=== PATIENT | male | born 1960 | race Caucasian/White ===

== ENCOUNTER 2023-03-20 08:04 | Outpatient (OUT) | payer BC, SELFPAY ==
[2023-03-20 08:40] LABS: Estimated GFR (African America >60 (>=60); Estimated GFR (Non-African Ame >60 (>=60)
--- NOTE | 2023-03-20 08:52 | CT_ITS ---
[address] [address] Patient Name: NORI SHARPE MRN: [facility]:[id number] date: 1960 Sex: M Assigned Patient Location: LAB Current Patient Location: LAB Accession/Order Number: [id number] Exam Date: 03/20/2023 09:00 Report Date: 03/20/2023 11:47 At the request of: JLUIS FLORENTINO Procedure: CT angio chest EXAM: CT angio chest HISTORY: Thoracic Aneurysm I71.20 COMPARISON: None. TECHNIQUE: CT chest with intravenous contrast was performed with timing for the evaluation for pulmonary arteries. Multiplanar reformats were performed. MIP (maximum intensity projection) images or 3D post processing was performed. Dose reduction techniques were achieved by using automated exposure control and/or adjustment of mA and/or kV according to patient size and/or use of iterative reconstruction technique. FINDINGS: Lungs: No consolidation, pneumothorax, or effusion. Stable 0.5 cm left lower lobe pulmonary nodule. Airways: Normal. Mediastinum: No adenopathy. Aorta: Stable post stenotic ascending aortic aneurysm measuring 3.4 cm, measured on coronal view. Cardiac: Normal size. No pericardial effusion. Status post aortic valve replacement. Pulmonary vasculature: There is a linear eccentric hypodensity along the left lower lobe segmental/subsegmental branches which is similar to the multiple prior studies since 08/11/2021 and likely artifact rather than true embolism (series 4, image 63). Normal morphology. Bones: No acute bony abnormality. Axilla: No adenopathy. Thyroid gland: No abnormality demonstrated on provided imaging. Soft tissues: Unremarkable. Upper abdomen: Unremarkable. Additional findings: None. CT/CT angio chest IMPRESSION: linear eccentric hypodensity along the left lower lobe segmental/subsegmental branches which is similar to the multiple prior studies since 08/11/2021 and likely artifact rather than true embolism. Stable post stenotic ascending aortic aneurysm measuring 3.4 cm, measured on coronal view. Stable 0.5 cm left lower lobe pulmonary nodule. Electronically authenticated by: MONICA SAMANIEGO Date: 03/20/2023 11:47
== END 2023-03-20 08:05 | disposition home or self-care (01) ==
LOC: LAB 08:04
PROVIDERS: PCP Internal Medicine; Visit Provider Internal Medicine Interventional Cardiology
DX: I71.20 Thoracic aortic aneurysm, without rupture, unspecified (principal)
CPT/HCPCS: 36415; 71275; 82565; Q9967

== ENCOUNTER 2023-09-20 08:47 | Outpatient (OUT) | payer BC, SELFPAY ==
--- NOTE | 2023-09-20 10:04 | CA_ITS ---
Patient Name: NORI SHARPE MR#: [id number] : 1960 Exam Date: 09/20/2023 Ordering Doctor: DR JLUIS FLORENTINO M.D. ECHOCARDIOGRAM REPORT PROCEDURE: CA ECHO DOPPLER COMPLETE INDICATIONS: Nonrheumatic valve stenosis COMPARISON: None. DESCRIPTION: COMPLETE ECHOCARDIOGRAM Real-time transthoracic echocardiography with 2D, M-mode, spectral and color flow Doppler performed. QUALITY: Technical quality was good. LEFT VENTRICLE: Normal chamber size. Borderline left ventricular hypertrophy. Global left ventricular systolic function is normal. LV EF: Calculated left ventricular ejection fraction is 63%. DIASTOLIC: Normal diastolic function. ATRIAL SEPTUM: LEFT ATRIUM: Mild dilatation. RIGHT ATRIUM: Mild dilatation. RIGHT VENTRICLE: Normal chamber size. Normal right ventricular systolic function. TRICUSPID VALVE: Normal mobility and thickness. No stenosis with trivial regurgitation. No evidence of pulmonary hypertension. RVSP 33 mmHg MITRAL VALVE: Normal mobility and thickness. No evidence of mitral valve stenosis. There is no mitral annular calcification. Mild mitral regurgitation. AORTIC VALVE: Bio-Prosthetic valve appears well seated in the aortic position with normal doppler flow. DVI 0.4, Mean gradient 12 mmHg. No aortic regurgitation. AORTIC ROOT: Normal diameter (3.8 cm) and appearance. Ascending aorta is moderately dilated measuring 4.4 cm which is unchanged from previous study of 08/16/22. The aortic arch measures 3.9 cm. PULMONIC VALVE: Normal thickness and mobility. No stenosis. Trivial regurgitation. PERICARDIUM: No evidence of pericardial effusion. IVC: Collapses with inspirations. Normal size. PLEURA: CONCLUSION: 1. Borderline left ventricular hypertrophy with systolic function. Estimated LVEF is 60 to 65%. 2. Normal right ventricular size and systolic function. 3. Bioprosthetic valve in the aortic position with normal Doppler flows and no regurgitation. 4. Normal right-sided pressures. 5. Normal diastolic function. 6. Moderately dilated ascending aorta measuring 4.4 cm. Adult Echocardiography Procedure Report Left Ventricle LVEDD (3.7 - 5.6 cm): 4.79 cm LVESD (2.2 - 4.0 cm): 3.48 cm LVIVS thickness (0.6 - 1.2 cm): 1.11 cm LVPW thickness (0.5 - 1.0 cm): 0.98 cm e': 0.14 m/s E - e': 6.28 LVOT Max Gradient: 3.59 mm[Hg] LVOT Area (cm2): 0.95 m/s Peak Velocity (LVOT): 0.95 m/s Mean Velocity (LVOT): 0.64 m/s LVOT Diameter 2.05 cm Left Ventricular Ejection Fraction: 63 % Left Atrium LA Volume Index (2D A2C): 30.74 ml/m2 Left Atrium Systolic Dimension: 4.41 cm Mitral Valve MV E to A Ratio: 0.95 Mitral Valve A-Wave Peak Velocity: 0.91 m/s Mitral Valve E-Wave Peak Velocity: 0.86 m/s Right Ventricle RV Internal Diastolic Dimension: 4.06 cm Aorta AO Root Diam: 3.83 cm Ascending Ao Diam: 4.40 cm Aortic Valve AoV Area (Peak Magno): 1.33 cm2, 1.33 cm2, 1.45 cm2, 1.45 cm2 AoV Area (VTI): 1.41 cm2, 1.41 cm2 Peak Velocity(Antegrade Flow): 2.36 m/s, 2.16 m/s Peak Gradient(Antegrade Flow): 22.33 mm[Hg], 18.69 mm[Hg] Mean Velocity(Antegrade Flow): 1.61 m/s Mean Gradient(Antegrade Flow): 11.86 mm[Hg] Velocity Time Integral: 55.31 cm Tricuspid Valve Peak Velocity (Regurgitant Flow): 2.72 m/s, 2.71 m/s, 2.73 m/s Pulmonic Valve Mean Gradient: 2.24 mm[Hg] Mean Velocity: 0.68 m/s Peak Velocity: 1.12 m/s, 1.18 m/s Peak Gradient: 5.55 mm[Hg], 5.03 mm[Hg] Right Atrium Right Atrium Systolic Pressure: 88.33 ml, 88.33 ml Dictated by: Benjy Gomez M.D. on 09/22/2023 at 15:20 Approved by: Benjy Gomez M.D. on 09/22/2023 at 15:40
== END 2023-09-20 08:48 | disposition home or self-care (01) ==
LOC: CARD 08:48
PROVIDERS: PCP Internal Medicine; Visit Provider Internal Medicine Interventional Cardiology
DX: I35.0 Nonrheumatic aortic (valve) stenosis (principal)
CPT/HCPCS: 93306

== ENCOUNTER 2023-10-02 08:59 | Outpatient (OUT) | payer BC, SELFPAY ==
--- OUTSIDE RECORDS SUMMARY | 2023-10-02 09:05 | XMS_ITS | CCD ---
Author Name Unknown Address [address] [place] [id number] Organization [facility] Care Team Providers Care Circulation Clerk Name Role Phone MEME RAYGOZA Admitting Unavailable MEME RAYGOZA Attending Unavailable VINNIE, JOVANI Primary Care Unavailable SELF, REFERRED Referring Unavailable Jovani [place] Unavailable VINNIE, JOVANI Primary Care Physician VINNIE, DR SHIRLEY Admitting Unavailable BALL, DR SHIRLEY Attending Unavailable BALL, DR SHIRLEY Primary Care Unavailable BALL, DR SHIRLEY Consulting Unavailable BALL, DR SHIRLEY Admitting Unavailable BALL, DR SHIRLEY Attending Unavailable BALL, DR SHIRLEY Primary Care Unavailable BALL, DR SHIRLEY Consulting Unavailable WEST, DR JOSE Blum Consulting Unavailable ELTAHAWY, DR BAZZI Admitting Unavailable ELTAHAWY, DR BAZZI Attending Unavailable BALL, DR SHIRLEY Primary Care Unavailable ELTAHAWY, DR BAZZI Consulting Unavailable ZIEBER, DR AMNA Srivastava Consulting Unavailable NILL, JAYLA Admitting Unavailable NILL, JAYLA Attending Unavailable BALL, DR SHIRLEY Primary Care Unavailable NILL, Jayla Srivastava Attending Unavailable BALL, JOVANI Referring Unavailable NILL, Jayla Srivastava Attending Unavailable NILL, Jayla Srivastava Attending Unavailable NILL, Jayla Srivastava Attending Unavailable ELTAHAWY, KENNA Attending Unavailable Allergies Allergy Classification Reported Allergen(s) Allergy Type Date of Onset Reaction(s) Facility (1 source) No Known Medication Allergies; Translations: [No Known Medication Allergies] Propensity to adverse reactions (disorder) [facility] Repository (2 sources) patient allergy list reviewed by nurse or physicia Propensity to adverse reactions 6 Comment:Done [facility] Other Medications Current Medications Medication Drug Class(es) Dates Sig (Normalized) Sig (Original) aspirin 81 mg delayed release oral tablet (11 sources) Platelet Aggregation Inhibitor, Nonsteroidal Anti-inflammatory Drug Start: 04-25-2023 take 1 tablet by mouth once daily aspirin 81 mg Oral EC Tab 81 mg = 1 tab(s), Oral, Daily, Oral, Refills(s) 0 Start Date: 11/28/22 Status: Ordered take 1 tablet by mouth once miranda y Aspirin 81 81 MG 1 tablet Orally Once a day Active atorvastatin 80 mg oral tablet (11 sources) HMG-CoA Reductase Inhibitor Start: 11-28-2022 take 1 tablet by mouth once daily atorvastatin 80 mg Tab 80 mg = 1 tab(s), Oral, Daily, Oral, Refills(s) 0 Start Date: 11/28/22 Status: Ordered azithromycin 250 mg oral tablet (5 sources) Macrolide Antimicrobial Start: 12-04-2022 Azithromycin 250 MG as directed Orally daily for 5 days December, Active benazepril hydrochloride 40 mg oral tablet (11 sources) Angiotensin Converting Enzyme Inhibitor Start: 11-28-2022 take 1 tablet by mouth once daily benazepril 40 mg oral tablet 40 mg = 1 tab(s), Oral, Daily, Oral, Refills(s) 0 Start Date: 11/28/22 Status: Ordered clopidogrel 75 mg oral tablet (11 sources) P2Y12 Platelet Inhibitor Start: 11-28-2022 take 1 tablet by mouth once daily clopidogrel 75 mg Tab 75 mg = 1 tab(s), Oral, Daily, Oral, Refills(s) 0 Start Date: 11/28/22 Status: Ordered metoprolol tartrate 25 mg oral tablet (11 sources) beta-Adrenergic Bg Start: 11-28-2022 take 1 tablet by mouth twice daily Metoprolol tartrate 25 mg Tab 25 mg = 1 tab(s), Oral, BID, Oral, Refills(s) 0 Start Date: 11/28/22 Status: Ordered Completed/Discontinued Medications Medication Drug Class(es) Dates Sig (Normalized) Sig (Original) amoxicillin 875 mg / clavulanate 125 mg oral tablet (5 sources) Penicillin-class Antibacterial Start: 12-13-2022 take 1 tablet by mouth every twelve hours Amoxicillin-Pot Clavulanate 875-125 MG 1 tablet Orally every 12 hrs for 14 days December, Not-Taking Problems Active Problems Problem Classification Problem Date Documented Da te Episodic/Chronic Abdominal pain (11 sources) Right lower quadrant pain; Translations: [Right lower quadrant pain] Episodic Aortic; peripheral; and visceral artery aneurysms (5 sources) Aneurysm of ascending aorta; Translations: [Thoracic aortic aneurysm without rupture] Onset: 08-18-2022 11-28-2022 Chronic Coronary atherosclerosis and other heart disease (20 sources) Coronary arteriosclerosis; Translations: [Atherosclerotic heart disease of [place] coronary artery without angina pectoris] Onset: 03-06-2016 Chronic Disorders of lipid metabolism (18 sources) Hypercholesterolemia ; Translations: [Pure hypercholesterolemia , unspecified] Onset: 08-06-2014 Chronic Essential hypertension (16 sources) Essential hypertension; Translations: [Essential (primary) hypertension] Chronic Genitourinary symptoms and ill-defined conditions (11 sources) Delay when starting to pass urine; Translations: [Hesitancy of micturition] Episodic Heart valve disorders (20 sources) History of aortic valve replacement; Translations: [Presence of prosthetic heart valve] Onset: 08-18-2022 Chronic Hypertension with complications and secondary hypertension (2 sources) Hypertensive heart disease without heart failure; Translations: [Hypertensive heart disease without heart failure] Onset: 09-18-2022 Chronic Other congenital anomalies (2 sources) Congenital spondylolysis of lumbosacral region; Translations: [Congenital spondylolysis, lumbosacral region] Onset: 03-06-2016 Chronic Other lower respiratory disease (11 sources) Multiple nodules of lung; Translations: [Other nonspecific abnormal finding of lung field] 11-28-2022 Episodic Other lower respiratory disease (7 sources) Other nonspecific abnormal finding of lung field; Translations: [OTH NONSPECIFIC ABN FIND LNG FIELD] Onset: 07-14-2022 Episodic Other lower respiratory disease (2 sources) Lung field abnormal; Translations: [Other nonspecific abnormal finding of lung field] Episodic Other nervous system disorders (2 sources) Paresthesia; Translations: [Paresthesia of skin] Episodic Other nutritional; endocrine; and metabolic disorders (3 sources) Body mass index 30+ - obesity; Translations: [Body mass index 30.0-30.9, adult] Onset: 06-26-2014 12-05-2022 Chronic Other nutritional; endocrine; and metabolic disorders (2 sources) Simple obesity ; Translations: [Other obesity due to excess calories] Onset: 06-26-2014 Chronic Other screening for suspected conditions (not mental disorders or infectious disease) (4 sources) Encounter for screening for malignant neoplasm of colon; Translations: [Screening for malignant neoplasm of colon done] Onset: 11-19-2022 Episodic Other upper respiratory infections (2 sources) Acute maxillary sinusitis, unspecified Episodic Spondylosis; intervertebral disc disorders; other back problems (13 sources) Lumbar spondylosis; Translations: [Spondylosis without myelopathy or radiculopathy, lumbar region] 11-28-2022 Chronic Substance-related disorders (20 sources) Nicotine dependence; Translations: [Nicotine dependence, cigarettes, uncomplicated] Onset: 03-13-2014 Chronic Unclassified (1 source) Patient encounter status 12-05-2022 Unclassified (1 source) THORAC AORTC ANEURYSM W/O RUPTR UNS; Translations: [THORAC AORTC ANEURYSM W/O RUPTR UNS] Onset: 08-18-2022 Unclassified (1 source) ANEURYSM ASCEND AORTA W/O RUPTURE; Translations: [ANEURYSM ASCEND AORTA W/O RUPTURE] Onset: 07-20-2022 Unclassified (2 sources) Thoracic aortic aneurysm, without rupture, unspecified; Translations: [Thoracic aortic aneurysm, without rupture, unspecified] Unclassified (3 sources) Aneurysm of the ascending aorta, without rupture; Translations: [Aneurysm of the ascending aorta, without rupture] Past or Other Problems Problem Classification Problem Date Documented Da te Episodic/Chronic Other nutritional; endocrine; and metabolic disorders (2 sources) Obesity; Translations: [Obesity, unspecified] Resolved: 02-25-2021 Chronic Residual codes; unclassified (2 sources) Tobacco user; Translations: [Nondependent tobacco use disorder] Onset: 03-13-2014 Episodic Spondylosis; intervertebral disc disorders; other back problems (2 sources) Low back pain; Translations: [Low back pain, unspecified] Onset: 03-06-2016 Episodic Unclassified (7 sources) Aneurysm of ascending aorta without rupture; Translations: [Aneurysm of ascending aorta without rupture] Unclassified (5 sources) Aneurysm of ascending aorta without rupture I71.21 Unclassified (1 source) Suspected COVID-19 virus infection Z20.822 Results Test Name Value Interpretation Reference Range Facility Orders Onlyon 04-12-2023 Orders Only [id number] Nori De La Rosa 1960 M Date Provider Department Center 04/12/2023 [facility] Family History Problem Relation Age of Onset Coronary artery disease Father Other Father Family Status - Relation Status Age at Father Normal [facility] Pathology Noteon 01-04-2023 Pathology Note [id number] .00CD:127 Normal [facility] Outside Colonoscopyon 2022 Outside Colonoscopy [id number] .00CD:127 [facility] Pre-Certification Formon Pre-Certification Form [id number]# 1.00CD:127 [facility] Consent for Procedure/Surger yon 12-07-2022 Consent for Procedure/Surgery [id number] .00CD:127 [facility] Facesheeton 12-07-2022 Facesheet [id number] .00CD:127 [facility] Physician Referralon 023 Physician Referral [id number] .00CD:127 [facility] Physician Referral [id number] .00CD:127 [facility] Ambulatory Visit Summaryon 0 12-05-2022 Ambulatory Visit Summary NORI DE LA ROSA :1960 Visit Date:12/05/2022 Ambulatory Visit Instructions Your Diagnosis Screening for malignant neoplasm of colon Your Care Team Attending Physician - IVON CONTRERAS, Jayla Srivastava Primary Care Physician - JOVANI [place] DO This Is Your Medications List Contact prescribing physician if questions or concerns aspirin (aspirin 81 mg Oral EC Tab) atorvastatin (atorvastatin 80 mg Tab) benazepril (benazepril 40 mg oral tablet) clopidogrel (clopidogrel 75 mg Tab) metoprolol (Metoprolol tartrate 25 mg Tab) Procedures Performed CABG - Coronary artery bypass graft (2014), AVR - Aortic valve replacement (2013), Cardiac catheterization, left heart. Discharge Vitals Heart Rate (Peripheral) 76 Respiratory Rate 16 Blood Pressure 144/84 Height 172.72 cm Height 68 in Weight 97.1 kg Weight 213.62 lb BMI 32.55 Medications What How Much When Instructions Unchanged aspirin (aspirin 81 mg Oral EC Tab) 1 Tablets By Mouth Every day Oral Contact prescribing physician if questions or concerns Unchanged atorvastatin (atorvastatin 80 mg Tab) 1 Tablets By Mouth Every day Oral Contact prescribing physician if questions or concerns Unchanged benazepril (benazepril 40 mg oral tablet) 1 Tablets By Mouth Every day Oral Contact prescribing physician if questions or concerns Unchanged clopidogrel (clopidogrel 75 mg Tab) 1 Tablets By Mouth Every day Oral Contact prescribing physician if questions or concerns Unchanged metoprolol (Metoprolol tartrate 25 mg Tab) 1 Tablets By Mouth 2 times a day Oral Contact prescribing physician if questions or concerns Allergies No Known Allergies No Known Medication Allergies Problems Ongoing - Any problem that you are currently receiving treatment for. Aneurysm of ascending aorta Aortic valve stenosis ASHD (arteriosclerotic heart disease) BMI 32.0-32.9,adult Coronary arteriosclerosis Essential hypertension History of aortic valve replacement. Hypercholesterolemia Lumbar spondylosis Multiple nodules of lung Nicotine dependence Screening for malignant neoplasm of colon Thoracic aortic aneurysm without rupture Normal [facility] Physician Referralon 023 Physician Referral [id number] .00CD:127 Normal [facility] CBC AUTO DIFFon 11-13-2022 BASO # 0.0 103/ul Normal 0.0-0.1 [facility] Comment on above: Performed By: #### C BC #### [facility] [address] [address] [address] Charity Connors Basophils/100 WBC (Bld) 0.4 % Normal 0.2-2.0 [facility] Comment on above: Performed By: #### C BC #### [facility] [address] [address] [address] Charity Connors EO # 0.1 103/ul Normal 0.0-0.7 [facility] Comment on above: Performed By: #### C BC #### [facility] [address] [address] [address] Charity Connors Eosinophils/100 WBC (Bld) 1.2 % Normal 0.9-7.0 [facility] Comment on above: Performed By: #### C BC #### [facility] [address] [place] [address] Dr. Charity Connors Erythrocyte distribution width (RBC) [Ratio] 12.8 % Normal 11.0-15.0 [facility] Comment on above: Performed By: #### C BC #### [facility] [address] [place] [address] Dr. Charity Connors Hematocrit (Bld) [Volume fraction] 42.2 % Normal 42.0-54.0 [facility] Comment on above: Performed By: #### C BC #### [facility] [address] [place] [address] Dr. Charity Connors Hemoglobin (Bld) [Mass/Vol] 14.4 g/dL Normal 14.0-18.0 [facility] Comment on above: Performed By: #### C BC #### [facility] [address] [place] [address] Dr. Charity Connors IG # 0.02 10e3/ul Normal 0.00-0.03 [facility] Comment on above: Performed By: #### C BC #### [facility] [address] [place] [address] Dr. Charity Connors IG % 0.3 % Normal 0.0-0.5 [facility] Comment on above: Performed By: #### C BC #### [facility] [address] [place] [address] Dr. Charity Connors LYMPH # 2.2 103/ul Normal 1.2-3.8 [facility] Comment on above: Performed By: #### C BC #### [facility] [address] [place] [address] Dr. Charity Connors Lymphocytes/100 WBC (Bld) 30.3 % Normal 20.5-60.0 [facility] Comment on above: Performed By: #### C BC #### [facility] [address] [place] [address] Dr. Charity Connors MANUAL DIFF REQ NO Normal [facility] Comment on above: Performed By: #### C BC #### [facility] [address] [place] [address] Dr. Charity Connors MCH (RBC) [Entitic mass] 31.0 pg Normal 25.9-34.0 [facility] Comment on above: Performed By: #### C BC #### [facility] [address] [place] [address] Dr. Charity Connors MCHC (RBC) [Mass/Vol] 34.1 g/dL Normal 29.9-35.2 [facility] Comment on above: Performed By: #### C BC #### [facility] [address] [place] [address] Dr. Charity Connors MCV (RBC) [Entitic vol] 90.9 fL Normal 80.0-94.0 [facility] Comment on above: Performed By: #### C BC #### [facility] [address] [place] [address] Dr. Charity Connors MONO # 0.7 103/ul Normal 0.3-0.8 [facility] Comment on above: Performed By: #### C BC #### [facility] [address] [place] [address] Dr. Charity Connors Monocytes/100 WBC (Bld) 9.1 % Normal 1.7-12.0 [facility] Comment on above: Performed By: #### C BC #### [facility] [address] [place] [address] Dr. Charity Connors NEUT # 4.3 103/ul Normal 1.4-6.5 [facility] Comment on above: Performed By: #### C BC #### [facility] [address] [place] [address] Dr. Charity Connors Neutrophils/100 WBC (Bld) 58.7 % Normal 43.0-75.0 [facility] Comment on above: Performed By: #### C BC #### [facility] [address] [place] [address] Dr. Charity Connors Platelet mean volume (Bld) [Entitic vol] 9.3 fL Critically low 9.5-13.5 [facility] Comment on above: Performed By: #### C BC #### [facility] [address] [place], [place] [address] Dr. Charity Connors PLT 450 103/ul Normal 150-450 [facility] Comment on above: Performed By: #### C BC #### [facility] [address] [place], [place] [address] Dr. Charity Connors RBC 4.64 106/ul Critically low 4.70-6.10 [facility] Comment on above: Performed By: #### C BC #### [facility] [address] [place], [place] [address] Dr. Charity Connors WBC 7.3 103/ul Normal 4.0-11.0 [facility] Comment on above: Performed By: #### C BC #### [facility] [address] [place], [place] [address] Dr. Charity Connors Complete Blood Count and Dif cyndie 11-13-2022 Anisocytosis Ql (Bld) [facility] Other Basophilic stippling LM Ql (Bld) [facility] Other RBC morphology finding Nom (Bld) [facility] Other Complete Blood Count and Diff [facility] Other Comprehensive Metabolic Pane cary 11-13-2022 Albumin [Mass/Vol] 3.448924 g/dL 3.4-5.0 g/dL N [employer] Other Calcium [Mass/Vol] 9.1259450 mg/dL 8.5-10.1 mg/ dL [facility] Other CO2 [Moles/Vol] 29.67016670 mmol/L 21.0-3 2.0 mmol/L [facility] Other Creatinine [Mass/Vol] 0.38444295 mg/dL 0.70-1.30 mg/dL [facility] Other Potassium [Moles/Vol] 4.49262764 mmol/L 3.5-5.1 mmol/L [facility] Other Protein [Mass/Vol] 8.360010 g/dL Critically high 6.4-8.2 g /dL [facility] Other Urea nitrogen [Mass/Vol] 12.4391523 mg/dL 7.0-18.0 mg/dL [facility] Other Comprehensive Metabolic Panel see note [facility] Other Comprehensive Metabolic Panel 138 mmol/L 136-145 mmol/L [facility] Other Comprehensive Metabolic Panel 110 mg/dL Critically high 74-106 mg/dL [facility] Other Comprehensive Metabolic Panel >60 mL/min/1.73m2 >=60 mL/min/1.73m2 [facility] Other Comprehensive Metabolic Panel 0.4 mg/dL 0.2-1.0 mg/dL [facility] Other Comprehensive Metabolic Panel 4.9 g/dL [facility] Other Albumin/Globulin [Mass ratio] 0.7 {ratio} Normal [facility] Other Comment on above: Performed By: #### C MP, LIPID #### [facility] [address] [place] [address] Dr. Charity Connors ALP [Catalytic activity/Vol] 95 U/L Normal 46-116 [facility] Other Comment on above: Performed By: #### C MP, LIPID #### [facility] [address] [place] [address] Dr. Charity Connors ALT [Catalytic activity/Vol] 62 U/L Normal 16-63 [facility] Other Comment on above: Performed By: #### C MP, LIPID #### [facility] [address] [place] [address] Dr. Charity Connors Anion gap [Moles/Vol] 11.6 mmol/L Normal [facility] Other Comment on above: Performed By: #### C MP, LIPID #### [facility] [address] [address] [address] Charity Connors AST [Catalytic activity/Vol] 22 U/L Normal 15-37 [facility] Other Comment on above: Performed By: #### C MP, LIPID #### [facility] [address] [place] [address] Dr. Charity Connors Chloride [Moles/Vol] 102 mmol/L Normal 98-107 [facility] Other Comment on above: Performed By: #### C MP, LIPID #### [facility] [address] [place] [address] Dr. Charity Connors Urea nitrogen/Creatinin e [Mass ratio] 13.8 mg/mg Normal [facility] Other Comment on above: Performed By: #### C MP, LIPID #### [facility] [address] [place] [address] Dr. Charity Connors LIPID PROFILEon 11-13-2022 CHOL-HDL RATIO NORM SEE BELOW Normal [facility] Comment on above: Result Comment: 3.3 - 4.4 LOW RISK 4.4 - 7.1 AVERAGE RISK 7.1 - 11.0 MODERATE RISK >11.0 HIGH RISK Performed By: #### C MP, LIPID #### [facility] [address] [place] [address] Dr. Charity Connors Cholesterol in LDL [Mass/Vol] 38.0 mg/dL Normal [facility] Comment on above: Performed By: #### C MP, LIPID #### [facility] [address] [place] [address] Dr. Charity Connors HDL NORMAL > or = 60 mg/dl - LO W CARDIOVASCULAR RISK <40 mg/dl - HIGH CARDIOVASCULAR RISK Normal [facility] Comment on above: Performed By: #### C MP, LIPID #### [facility] [address] [place] [address] Dr. Charity Connors LDL CALC NORMAL SEE BELOW Normal [facility] Comment on above: Result Comment: <100 mg/dl OPTIMAL 100 - 129 mg/dl NEAR OR ABOVE OPTIMAL 130 - 159 mg/dl BORDERLINE HIGH 160 - 189 mg/dl HIGH >190 mg/dl VERY HIGH Performed By: #### C MP, LIPID #### [facility] [address] [address] [address] Charity Connors VLDL CALC 40.0 mg/dL Normal [facility] Comment on above: Performed By: #### C MP, LIPID #### [facility] [address] [address] [address] Charity Connors Lipid Panelon 11-13-2022 Lipid Panel > or = 60 mg/dl - LO W CARDIOVASCULAR RISK <40 mg/dl - HIGH CARDIOVASCULAR RISK [facility] Other Lipid Panel SEE BELOW [facility] Other Lipid Panel 38.0 mg/dL [facility] Other Lipid Panel 40.0 mg/dL [facility] Other Cholesterol [Mass/Vol] 107 mg/dL Normal <=200 [facility] Other Comment on above: Performed By: #### C MP, LIPID #### [facility] [address] [address] [address] Charity Connors Cholesterol in HDL [Mass/Vol] 29 mg/dL Critically low 40-60 [facility] Other Comment on above: Performed By: #### C MP, LIPID #### [facility] [address] [address] [address] Charity Connors Cholesterol.total/ Cholesterol in HDL [Mass ratio] 3.7 {ratio} Normal [facility] Other Comment on above: Performed By: #### C MP, LIPID #### [facility] [address] [address] [address] Charity Connors Triglyceride [Mass/Vol] 200 mg/dL Critically high <=150 [facility] Other Comment on above: Performed By: #### C MP, LIPID #### [facility] [address] [address] [address] Charity Connors PROF 14(COMP METB)on 023 Albumin [Mass/Vol] 3.6 g/dL Normal 3.4-5.0 [facility] Comment on above: Performed By: #### C MP, LIPID #### [facility] [address] [place] [address] Dr. Charity Connors Bilirubin [Mass/Vol] 0.4 mg/dL Normal 0.2-1.0 [facility] Comment on above: Performed By: #### C MP, LIPID #### [facility] [address] [place] [address] Dr. Charity Connors Calcium [Mass/Vol] 9.8 mg/dL Normal 8.5-10.[address] [facility] Comment on above: Performed By: #### C MP, LIPID #### [facility] [address] [place] [address] Dr. Charity Connors CO2 [Moles/Vol] 29.2 mmol/L Normal 21.0-32.0 [facility] Comment on above: Performed By: #### C MP, LIPID #### [facility] [address] [place] [address] Dr. Charity Connors Creatinine [Mass/Vol] 0.87 mg/dL Normal 0.70-1.30 [facility] Comment on above: Performed By: #### C MP, LIPID #### [facility] [address] [place] [address] Dr. Charity Connors EGFR-AF LITHUANIAN >60 Normal >=60 [facility] Comment on above: Performed By: #### C MP, LIPID #### [facility] [address] [place] [address] Dr. Charity Connors EGFR-NON AF LITHUANIAN >60 Normal >=60 [facility] Comment on above: Performed By: #### C MP, LIPID #### [facility] [facility] [address] [place] [address] Dr. Charity Connors Globulin (S) [Mass/Vol] 4.9 g/dL Normal [facility] Comment on above: Performed By: #### C MP, LIPID #### [facility] [address] [place] [address] Dr. Charity Connors Glucose [Mass/Vol] 110 mg/dL Critically high 74-106 [facility] Comment on above: Performed By: #### C MP, LIPID #### [facility] [address] [address] [address] Charity Connors Potassium [Moles/Vol] 4.8 mmol/L Normal 3.5-5.1 [facility] Comment on above: Performed By: #### C MP, LIPID #### [facility] [address] [address] [address] Charity Connors Protein [Mass/Vol] 8.5 g/dL Critically high 6.4-8.2 [facility] Comment on above: Performed By: #### C MP, LIPID #### [facility] [address] [place] [address] Dr. Charity Connors Sodium [Moles/Vol] 138 mmol/L Normal 136-145 [facility] Comment on above: Performed By: #### C MP, LIPID #### [facility] [address] [place] [address] Dr. Charity Connors Urea nitrogen [Mass/Vol] 12.0 mg/dL Normal 7.0-18.0 [facility] Comment on above: Performed By: #### C MP, LIPID #### [facility] [address] [place] [address] Dr. Charity Connors Office Visiton 09-18-2022 Follow-up visit [id number] Nori De La Rosa 1960 M Date Provider Department Center 09/18/[address] [facility]KENNA HARRISON [facility] Family History Problem Relation Age of Onset Coronary artery disease Father Other Father Family Status - Relation Status Age at Father Level of Service:14309 MO OFFICE/OUTPATIENT ESTABLISHED LOW MDM 20-29 MIN Reason for Visit and Comments: Coronary Artery Disease [187] Valve Disorder [3372] Normal [facility] CREATININEon 08-16-2022 Creatinine [Mass/Vol] 0.96 mg/dL Normal 0.70-1.30 [facility] Comment on above: Performed By: #### C JC #### [facility] [address] [address] [address] Charity Connors EGFR-AF LITHUANIAN >60 Normal >=60 [facility] Comment on above: Performed By: #### C JC #### [facility] [address] [address] [address] Charity Connors EGFR-NON AF LITHUANIAN >60 Normal >=60 [facility] Comment on above: Performed By: #### C JC #### [facility] [address] [address] [address] Charity Connors CTA CHEST WO W CONon 023 CTA CHEST WO W CON EXAMINATION: CTA CHEST WO W CON HISTORY: Thoracic aortic aneurysm without rupture COMPARISON: CT chest 07/14/2022, 08/11/2021, 02/12/2021 TECHNIQUE: Multi-planar CT images were created with IV contrast. Axial, Coronal, and Sagittal images. Dose reduction techniques were achieved by using automated exposure control and/or adjustment of mA and/or kV according to patient size and/or use of iterative reconstruction technique. 3-D reconstruction was performed on a separate workstation. FINDINGS: VASCULATURE: No pulmonary embolism. LUNGS: A few small nodules scattered within the lungs, unchanged; largest is 5 mm within lateral left lower lobe. PLEURA: No mass, effusion, or pneumothorax. TOÑO: No mass or adenopathy. MEDIASTINUM: No mass or adenopathy. CARDIAC: No enlargement, pericardial effusion, or pericardial thickening. AORTA: Prior aortic valve replacement. Dilation of the ascending aorta, 4.8 cm in diameter. CHEST WALL: No mass or axillary adenopathy. BONES: Prior sternotomy. No bone lesion or fracture. LIMITED ABDOMEN: No suspicious findings. Limited images of the upper abdomen. OTHER: Negative. IMPRESSION: 1. Stable aneurysmal dilation of the ascending thoracic aorta, 4.8 cm in diameter. 2. Stable appearance of a few small pulmonary nodules favoring benign etiology. Electronically authenticated by: AMNA BERNSTEIN Date: 2022-08-16 10:09 Normal [facility] ECHOCARDIO M/2D COMPLETEon 0 08-16-2022 ECHOCARDIO M/2D COMPLETE Patient: NORI DE LA ROSA Exam Date: 08/16/2022 : 1960 Gender:M Ordering : DR KENNA HARRISON M.D. Admission #: [id number] Family : DR JOVANI BIRMINGHAM D.ONoemi Order #: [id number] CLICK HERE TO VIEW EXAM ECHOCARDIOGRAM REPORT PROCEDURE: CARDIO PULMONARY ECHOCARDIO M/2D COMP INDICATIONS: Aortic stenosis, H/O AVR; 27 mm Bovine Magna pericardial AND CABG 06/2015 COMPARISON: None. DESCRIPTION: COMPLETE ECHOCARDIOGRAM Real-time transthoracic echocardiography with 2D, M-mode, spectral and color flow Doppler performed. QUALITY: Technical quality was adequate. 71 215# 120/82 HR 57 LEFT VENTRICLE: Normal chamber size. Proximal septal hypertrophy (sigmoid septum). LV EF: Global left ventricular systolic function is normal. Visual estimation of left ventricular ejection fraction is 60%. The interventricular septum is abnormal in motion as commonly seen in open heart patients. DIASTOLIC: Normal diastolic function. ATRIAL SEPTUM: Inadequately seen. LEFT ATRIUM: Normal chamber size. RIGHT ATRIUM: Right atrium is at upper normal limits in size. RIGHT VENTRICLE: Normal chamber size. Normal right ventricular systolic function. TRICUSPID VALVE: Normal mobility and thickness. No stenosis with trivial regurgitation. No evidence of pulmonary hypertension. RVSP 18 mmHg MITRAL VALVE: Normal mobility and thickness. No evidence of mitral valve stenosis. Trivial mitral regurgitation. AORTIC VALVE: Bioprosthetic valve appears well seated in the aortic position with normal Doppler flows. DVI 0.42 and mean gradient 12 mmHg. No aortic regurgitation. AORTIC ROOT: Aorta sinuses are normal in size for BSA. Ascending aorta is moderately enlarged at 4.4 cm, previously 4.28 cm. PULMONIC VALVE: Not well visualized. No stenosis. Trivial regurgitation. PERICARDIUM: No evidence of pericardial effusion. IVC: Collapses with inspirations. IVC is normal in size. CONCLUSION: Global left ventricular systolic function is normal; visually estimated ejection fraction is 55 to 60%. Abnormal septal motion. The right ventricle is normal in size and systolic function. A bioprosthetic aortic valve is seen with normal Doppler flows. The ascending aorta is moderately enlarged and measures 4.4 cm. Adult Echocardiography Procedure Report Left Ventricle LVEDD (3.7 - 5.6 cm): 5.71 cm LVESD (2.2 - 4.0 cm): 3.26 cm LVPW thickness (0.5 - 1.0 cm): 0.92 cm LVOT Max Gradient: 3.88 mm[Hg], 3.88 mm[Hg] Peak Velocity (LVOT): 0.98 m/s, 0.98 m/s Mean Velocity (LVOT): 0.72 m/s Left Ventricular Ejection Fraction: 73.30 %, 73.30 % Left Atrium LA Volume Index (2D A2C): 50.38 ml, 49.87 ml Left Atrium Systolic Dimension: 4.12 cm Mitral Valve MV E to A Ratio: 0.91 Mitral Valve A-Wave Peak Velocity: 0.99 m/s Mitral Valve E-Wave Peak Velocity: 0.91 m/s Right Ventricle RV Internal Diastolic Dimension: 3.96 cm Aorta AO Root Diam: 3.89 cm Ascending Ao Diam: 4.40 cm Aortic Valve Peak Velocity(Antegrade Flow): 2.31 m/s, 2.30 m/s, 2.31 m/s Peak Gradient(Antegrade Flow): 21.35 mm[Hg], 21.35 mm[Hg], 21.09 mm[Hg] Mean Velocity(Antegrade Flow): 1.56 m/s, 1.64 m/s Mean Gradient(Antegrade Flow): 11.12 mm[Hg], 11.83 mm[Hg] Velocity Time Integral: 51.25 cm, 55.01 cm Tricuspid Valve Peak Velocity (Regurgitant Flow): 1.96 m/s Peak Velocity: 0.55 m/s Pulmonic Valve Peak Velocity: 1.16 m/s Peak Gradient: 5.35 mm[Hg] Right Atrium Dictated by: Kenna Harrison M.D. on 08/17/2022 at 13:08 Approved by: Kenna Harrison M.D. on 08/17/2022 at 13:12 Normal [facility] CT CHEST WO CONon 07-14-2022 CT CHEST WO CON EXAMINATION: CT CHES T WO CON HISTORY: Lung field abnormal , pulmonary nodule COMPARISON: 08/11/2021 TECHNIQUE: Multi-planar CT images were created with IV contrast. Axial, Coronal, and Sagittal images. Dose reduction techniques were achieved by using automated exposure control and/or adjustment of mA and/or kV according to patient size and/or use of iterative reconstruction technique. FINDINGS: LUNGS: Scattered subcentimeter solid noncalcified pulmonary nodules the largest in the left lower lobe measures 5 mm, axial image 69. No new significant pulmonary nodule or mass PLEURA: No mass, effusion, or pneumothorax. VASCULATURE: No abnormality. TOÑO: No mass or adenopathy. MEDIASTINUM: No mass or adenopathy. CARDIAC: No enlargement or pericardial effusion. Moderate coronary atherosclerosis. Aortic valve calcifications AORTA: Aneurysm of the ascending thoracic aorta measuring up to 4.8 cm in diameter. Atherosclerosis. CHEST WALL: No mass or axillary adenopathy. BONES: No bone lesion or fracture. LIMITED ABDOMEN: No suspicious findings. Limited images of the upper abdomen. OTHER: Negative. IMPRESSION: Stable scattered punctate pulmonary nodules measuring up to 5 mm, nonspecific 4.8 cm aneurysm ascending thoracic aorta Electronically authenticated by: JOSE PORTER Date: 2022-07-14 12:44 Normal [facility] CTA CHESTon 01-26-2020 [address] [facility] Department of Radiology [address] [place] [id number] Patient Name: NORI DE LA ROSA : 1960 Sex: M Age: Race: White Pt. Location: Patient Status: O Ordered Date: 12/09/2019 11:30:00 AM Completed Date: 01/26/2020 09:08 AM Requesting Provider: MEME RAYGOZA Attending Provider: MEME RAYGOZA Report Copy To: JOVANI BIRMINGHAM Signs & Symptoms: I71.2 Thoracic aortic aneurysm, without rupture I10 History: Shi Patient will do labs near his home per clinic. [id number] no pc required per [employer] ref# [id number] kw 01/11 Comments: Exam: CTA CHEST CTA CHEST 01/26/2020 9:08 AM CLINICAL INDICATIONS: I71.2 Thoracic aortic aneurysm, without rupture I10 TECHNOLOGIST COMMENTS: Thoracic aortic aneurysm surveillance QUESTION FOR THE RADIOLOGIST: PROTOCOL: Axial CT angiography images were obtained with IV contrast. CONTRAST: Contrast: OMNIPAQUE 350 (LOCM), 100 milliliter, Intravenous TECHNIQUE: Multidetector CT angiography axial slices of the chest were obtained with IV contrast. Multiplanar reformats, MIP, and volume rendered 3-D images were generated on a separate workstation and reviewed to further define anatomy and possible pathology. COMPARISON: CT chest November 28, 2017. FINDINGS: The thyroid and thoracic inlet appear unremarkable. The central airways are patent. Aortic valve prosthesis remains in place. The ascending aorta remains prominent measuring 4.5 cm in diameter, unchanged from the prior study. The arch vessels appear unremarkable, no evidence of aortic dissection is identified. No pulmonary emboli are identified. Calcification is present in the LAD, similar to the prior study. No pericardial effusion is seen. No mediastinal adenopathy or fluid collection identified. No pneumothorax or pleural effusion. The previously described 4.8 mm left lower lobe nodule on image 272 is present today, unchanged on image 277. The chest wall appears unremarkable. The study continued into the upper abdomen shows no additional abnormality. The study viewed at bone window shows the presence of sternotomy wires. IMPRESSION: * Aortic valve prosthesis in place with prominent ascending aorta, unchanged from the prior study. * Stable nodule present in the left lower lobe. Electronically signed: Kat Joiner. Transcribed by: [email or web address], User Resident: Electronically Signed by: KAT JOINER @ 01/26/2020 09:29 AM Normal [facility] Vital Signs Date Time Vital Sign Value Performing Clinician Facility 05-15-2023 08:30-0400 Body height 172.72 cm Jovani Birmingham Other [facility] Other 05-15-2023 08:30-0400 Body mass index (BMI) [Ratio] 31.68 kg/m2 Jovani Bimringham Other [facility] Other 05-15-2023 08:30-0400 Body weight 94.53 kg Jovani Ball Other [facility] Other 05-15-2023 08:30-0400 Diastolic blood pressure 80 mm[Hg] Jovani Ball Other [facility] Other 05-15-2023 08:30-0400 Respiratory rate 12 /min Jovani Ball Other [facility] Other 05-15-2023 08:30-0400 Systolic blood pressure 124 mm[Hg] Jovani Ball Other [facility] Other 12-13-2022 16:30-0400 Body height 172.72 cm Jovani Ball Other [facility] Other 12-13-2022 16:30-0400 Body mass index (BMI) [Ratio] 32.26 kg/m2 Jovani Ball Other [facility] Other 12-13-2022 16:30-0400 Body weight 96.25 kg Jovani Ball Other [facility] Other 12-13-2022 16:30-0400 Diastolic blood pressure 79 mm[Hg] Jovani Ball Other [facility] Other 12-13-2022 16:30-0400 Respiratory rate 12 /min Jovani Ball Other [facility] Other 12-13-2022 16:30-0400 Systolic blood pressure 148 mm[Hg] Jovani Ball Other [facility] Other 12-05-2022 13:10-0400 Blood Pressure Location Jayla RAMIREZ [facility] [place] 12-05-2022 13:10-0400 Diastolic blood pressure 84 mm[Hg] Jayla RAMIREZ [facility] [place] 12-05-2022 13:10-0400 Heart rate 76 /min Jayla NILL [facility] [place] 12-05-2022 13:10-0400 Respiratory rate 16 /min Jayla NILL [facility] [place] 12-05-2022 13:10-0400 Systolic blood pressure 144 mm[Hg] Jayla NILL [facility] [place] 11-13-2022 10:30-0400 Body height 172.72 cm Jovani Ball Other [facility] Other 11-13-2022 10:30-0400 Body mass index (BMI) [Ratio] 32.26 kg/m2 Jovani Ball Other [facility] Other 11-13-2022 10:30-0400 Body weight 96.25 kg Jovani Ball Other [facility] Other 11-13-2022 10:30-0400 Diastolic blood pressure 74 mm[Hg] Jovani Ball Other [facility] Other 11-13-2022 10:30-0400 Respiratory rate 12 /min Jovani Ball Other [facility] Other 11-13-2022 10:30-0400 Systolic blood pressure 145 mm[Hg] Jovani Ball Other [facility] Other 10-31-2022 15:45-0400 Body height 172.72 cm Jovani Ball Other [facility] Other 10-31-2022 15:45-0400 Body mass index (BMI) [Ratio] 33.33 kg/m2 Jovani Ball Other [facility] Other 10-31-2022 15:45-0400 Body weight 99.43 kg Jovani Birmingham Other [facility] Other 10-31-2022 15:45-0400 Diastolic blood pressure 70 mm[Hg] Jovani Birmingham Other [facility] Other 10-31-2022 15:45-0400 Respiratory rate 12 /min Jovani Birmingham Other [facility] Other 10-31-2022 15:45-0400 Systolic blood pressure 122 mm[Hg] Jovani Birmingham Other [facility] Other Encounters Encounter Date Encounter Type Care Provider Facility Start: 05-15-2023 End: 05-15-2023 ambulatory Jovani Birmingham Other [facility] Other Start: 05-15-2023 Office outpatient vi sit 25 minutes Jovani Ball [facility] Start: 03-20-2023 End: 03-20-2023 ambulatory Jovani Birmingham Other [facility] Other Start: 03-20-2023 Telephone encounter Jovani Birmingham [facility] Start: 01-04-2023 End: 01-04-2023 ambulatory Jovani Birmingham Other [facility] Other Start: 01-04-2023 Telephone encounter Jovani Birmingham [facility] Start: 12-27-2022 End: 12-28-2022 ambulatory JAYLA NILMiranda Facility:[facility] Start: 12-13-2022 End: 12-13-2022 ambulatory Jovani Ball Other [facility] Other Start: 12-13-2022 Office outpatient vi sit 15 minutes Jovani Ball [facility] Start: 12-05-2022 End: 12-06-2022 ambulatory Jayla RAMIREZ Facility: [place] Start: 12-05-2022 End: 12-05-2022 Patient encounter procedure Jayla RAMIREZ [facility] Start: 12-04-2022 End: 12-04-2022 ambulatory Jovani Birmingham Other [facility] Other Start: 12-04-2022 Office outpatient vi sit 15 minutes Jovani Birmingham [facility] Start: 11-19-2022 Encounter for genera l adult medical examination without abnormal findings DR JOVANI BIRMINGHAM [facility] Start: 11-15-2022 ambulatory Jayla RAMIREZ Facility :[facility] Start: 11-13-2022 End: 11-14-2022 Encounter for general adult medical examination without abnormal findings Jovani Birmingham [facility] Start: 11-13-2022 Periodic preventive med est patient 40-64yrs Jovani Birmingham [facility] Start: 11-13-2022 End: 11-14-[address] JOVANI BIRMINGHAM [facility] Other Start: 10-31-2022 End: 10-31-2022 ambulatory Jovani Birimngham Other [facility] Other Start: 10-31-2022 Office outpatient vi sit 15 minutes Jovani Birmingham [facility] Start: 10-30-2022 End: 10-30-2022 ambulatory Jovani Birmingham Other [facility] Other Start: 10-30-2022 Telephone encounter Jovani Birmingham [facility] Start: 09-18-2022 End: 09-18-2022 ambulatory KENNA HARRISON [facility] Start: 08-18-2022 Encounter for other preprocedural examination DR KENNA HARRISON [facility] Start: 08-16-2022 End: 08-17-[address] KENNA HARRISON Facility:[facility] Start: 08-16-2022 End: 08-17-2022 Encounter for other preprocedural examination DR KENNA HARRISON Facility:[facility] Start: 07-14-2022 End: 07-15-[address] JOVANI BIRMINGHAM Facility:[facility] Start: 02-25-2021 Adult health examination Gael min Ball Other [facility] Other Start: 01-26-2020 End: 01-27-2020 [facility] Procedures Date Procedure Procedure Detail Performing Clinician Start: 11-13-2022 End: 11-13-2022 PSA screening Jovani Birmingham Other Comment on above: Performed By: #### P [facility] #### [facility] [address] [address] [address] Charity Connors Start: 08-06-2014 Coronary artery bypass graft Jayla COOKL Start: 06-26-2014 General examination of patient Jovani Birmingham Other Start: 08-06-2013 Replacement of aortic valve Jayla JOYCEL Catheterization of l eft heart Jayla JOYCEL Depression screening Xavier Birmingham Other Screening for malign ant neoplasm of prostate Jovani Birmingham Other Plan of Treatment Date Care Activity Detail Author Start: 01-16-2023 ambulatory Ambulatory Facility:[facility] [place] Immunizations Immunization Date Immunization Notes Care Provider Fa brenda 05-15-2023 influenza, injectabl e, quadrivalent, preservative free Jovani Birmingham Other [facility] Other 05-18-2022 influenza virus vaccine, unspecified formulation Jayla IVON [facility] [place] 07-08-2021 SARS-CoV-2 (COVID-19 ) mRNA BNT-162b2 vax Jayla COOKMiranda [facility] 10-11-2020 COVID-19 Vaccine Kesha - Documentation Purposes Only Jovani Birmingham Other [facility] 05-28-2015 tetanus and diphther ia toxoids, adsorbed, preservative free, for adult use (5 Lf of tetanus toxoid and 2 Lf of diphtheria toxoid) Jovani Birmingham Other [employer] Other Payers Date Payer Category Payer Private Health Insurance [id number] 1961 [facility] [id number] 1960 Unknown [id number] 2.16.8 [id number] 1960 Unknown [id number] 2.16.84 [id number] 1960 Unknown [id number] 2.16.84 [id number] 1960 Unknown [id number] 2.16.84 [id number] 1960 Unknown [id number] 2.16.84 [id number] 1960 Unknown [id number] 2.16.8 [id number] 1960 Unknown [id number] 2.16.8 [id number] 1960 Unknown [id number] 2.16.8 [id number] 1960 Unknown [id number] 2.16.8 [id number] Social History Date Type Detail Facility Sex Assigned At [facility] Start: 12-05-2022 Tobacco smoking status Heavy t obacco smoker (finding) [facility] [place] Tobacco smoking status Never Gener al Surgery [place] Functional Status Date Assessment Result Facility 12-05-2022 Functional Status N/A [facility] [place] Clinical Notes 09-18-2022 to 05-15-2023 Note Date & Type Note Facility 05-15-2023 Evaluation note Encounter Date Diagnosis Assessment Notes May, Primary hypertension (ICD-10 - I10) This patient is instructed to consume a healthy, low-fat, low-salt diet. They are also encouraged to continue exercise to achieve/maintain a normal BMI. Patient is instructed on home BP measurements: - rest for 5 minutes w/o talking- positioned w/ feet on floor and arm supported- average best 2/3 readings w/ goal < 135/85 May, ASHD (arterioscleroti c heart disease) (ICD-10 - I25.10) This patient is stable without activity related CP, dyspnea or lightheadedness. They are instructed to continue exercise and AHA diet plan. Continue secondary prevention measures. May, Elevated cholesterol (ICD-10 - E78.00) Instructed on diet and exercise with continued statin therapy.Discussed the beneficial effects of lowering cholesterol in reducing the risk for cerebrovascular and cardiovascular disease. May, Nicotine dependence, cigarettes, uncomplicated (ICD-10 - F17.210) This patient has been encouraged to quit tobacco use immediately. They are aware of the hazards associated with tobacco use, including but not limited to respiratory infections, vascular disease and cancers. May, Aneurysm of the ascending aorta, without rupture (ICD-10 - I71.21) CTA: 4.7cm - 01/2021, CT: 4.7cm - 08/2021, CT: 4.8cm - 07/2022, CT: 3.4cm - 03/2023 Serial CTA by [facility] - tentatively scheduled for recheck after 6mo but scheduled wrong imaging procedure - control BP - continue ASA and Statin therapy He is to call [facility] to see if CTA abdomen should be scheduled (year anniversary is Jul) May, Pulmonary nodules (ICD-10 - R91.8) CT: 0.5cm - 03/2023 Denies dyspnea, change in sputum production or hemoptysis. Continue LDCT May, S/P aortic valve replacement (ICD-10 - Z95.2) Serial Echo and f/u with [facility] Cardiology Denies CP, tachycardia or syncope [facility] Other 08-15-2023 Evaluation note* Encounter Date Diagnosis Assessment Notes Treatment Notes Treatment Clinical Notes Mar, Aneurysm of the ascending aorta, without rupture (ICD-10 - I71.21) CTA: 4.7cm - 01/2021, CT: 4.7cm - 08/2021, CT: 4.8cm - 07/2022, CT: 3.4cm - 03/2023Mar, Nicotine dependence, cigarettes, uncomplicated (ICD-10 - F17.210) This patient has been encouraged to quit tobacco use immediately. They are aware of the hazards associated w/ tobacco use, including but not limited to respiratory infections, vascular disease and cancers. Mar, Pulmonary nodules (ICD-10 - R91.8) CT: 0.5cm - 03/2023 [facility] Other 08-15-2023 Evaluation note* Encounter Date Diagnosis Assessment Notes Treatment Notes Treatment Clinical Notes Mar, Pulmonary nodules (ICD-10 - R91.8) Mar, Aneurysm of the ascending aorta, without rupture (ICD-10 - I71.21) CTA: 4.7cm - 01/2021, CT: 4.7cm - 08/2021, CT: 4.8cm - 07/2022 [facility] Other 05-10-2023 Evaluation note* Encounter Date Diagnosis Assessment Notes Treatment Notes Treatment Clinical Notes December, Acute non-recurrent maxillary sinusitis (ICD-10 - J01.00) Instructed to use Robitussin or Mucinex for cough, saline or Flonase NS for congestion, Tylenol for pain and fever. December, Cigarette nicotine dependence without complication (ICD-10 - F17.210) This patient has been encouraged to quit tobacco use immediately. They are aware of the hazards associated with tobacco use, including but not limited to respiratory infections, vascular disease and cancers. [facility] Other 05-02-2023 NoteChief Complaint consultation for screening colonoscopy [facility] Staff 62 year old male presents on consultation from Dr. Birmingham for screening colonoscopy. Denies abdominalor rectal pain. No rectal bleeding or change in bowel habits. Denies nausea or vomiting. No unexplained weight loss. Never had colonoscopy in the past. No known family history of colon cancer. History of Present Illness 62 yo malle with h/o htn, hypercholesterolemia, CAD, s/p AVR and CABG x 2, 8 years ago with bovine valve; h/o thoracic aortic aneurysm, referred for colorectal screening; denies change in bms or blood in stools, no abd complaints; no abd operations or previous colonoscopy; on baby asa and Plavix daily, no NSAIDs; does use SBE prophylaxis; no fmhx of GI malignancy or IBD; smokes daily. Review of Systems PHQ Score Initial Depression Screen Score: 0 ROS - Provider Constitutional: no fever, no sweats, no weight loss. Eyes: no glasses, no blurred vision, no visual loss. ENMT: no dentures, no hoarseness, no swallowing difficulties, no hearing loss, no ear infection(s),no nose bleeds. Cardiovascular: normal blood pressure, no chest pain, regular heartbeat, no heart murmur. Respiratory: no shortness of breath, no cough, no asthma, no wheezing. Gastrointestinal: no nausea, no vomiting, no diarrhea, no constipation, no blood in stool, no change in bowel habits, no abdominal pain, no hepatitis. Genitourinary: no kidney stones, no urine infection, no dysuria. Musculoskeletal: no pain, no weakness. Skin: no changing moles, no rash, no skin lumps. Neurologic: no seizures, no epilepsy, no headache. Psychiatric: no emotional or psychiatric problem. Heme/Lymph: no bleeding problems, no anemia, no blood clots, no transfusions. Allergy/Immunologic: no swollen lymph nodes/glands, no IV drug abuse. Other: Additional ROS info: Except as noted in the above Review of Systems and in the History of Present Illness, all other systems have been reviewed and are negative or noncontributory. Physical Exam Vitals & Measurements HR: 76(Peripheral) RR: 16 BP: 144/84 HT: 68 in HT: 172.72 cm WT: 97.1 kg WT: 213.62 lb BMI: 32.55 HEENT: normal conjunctiva, sclera clear, no scleral icterus, EOM intact, PERRLA, oral mucosa moist without lesions. Neck: trachea midline, no mass, symmetric, no thyromegaly or nodules, no adenopathy Respiratory: lungs CTA, respirations non labored. Cardiovascular: regular rate and rhythm, no murmur, no pedal edema or varicosities. Gastrointestinal: soft, non distended, no tenderness, no masses, no palpable hernias, diastasis recti no, no hepatosplenomegaly; normal bs Lymphatic: no cervical adenopathy, supraclavicular adenopathy Musculoskeletal: normal gait, digits and nails without infection, nodes, cyanosis, clubbing. Skin: no rashes, no lesions, no ulcers, no subcutaneous nodules, induration. Psychiatric/Neuro: oriented to time, place, person, judgement normal, affect appropriate for age, insight intact, no focal deficits. Tests: review of old records completed, Discussed surgical options, risks, and possible complications with patient. Assessment/Plan 1. Screening for malignant neoplasm of colon (Z12.11: Encounter for screening for malignant neoplasm of colon) plan colonoscopy under anesthesia, informed consent obtained. hold Plavix 5 days prior to OR Unasyn 3 gms IV prior to procedure Follow-up No qualifying data available Problem List/Past Medical History Ongoing Aneurysm of ascending aorta Aortic valve stenosis ASHD (arteriosclerotic heart disease) BMI 32.0-32.9,adult Coronary arteriosclerosis Essential hypertension History of aortic valve replacement. Hypercholesterolemia Lumbar spondylosis Multiple nodules of lung Nicotine dependence Screening for malignant neoplasm of colon Thoracic aortic aneurysm without rupture Historical No qualifying data Procedure/Surgical History CABG - Coronary artery bypass graft (2014), AVR - Aortic valve replacement (2013), Cardiac catheterization, left heart. Medications aspirin 81 mg Oral EC Tab, 81 mg= 1 tab(s), Oral, Daily atorvastatin 80 mg Tab, 80 mg= 1 tab(s), Oral, Daily benazepril 40 mg oral tablet, 40 mg= 1 tab(s), Oral, Daily clopidogrel 75 mg Tab, 75 mg= 1 tab(s), Oral, Daily Metoprolol tartrate 25 mg Tab, 25 mg= 1 tab(s), Oral, BID Allergies No Known Allergies No Known Medication Allergies Social History Alcohol Current, Beer, Daily, 12/05/2022 Substance Abuse - Denies Substance Abuse, 12/05/2022 Tobacco 10 or more cigarettes (1/2 pack or more)/day in last 30 days Tobacco Use:. Never Smokeless Tobacco Use:. Cigarettes, 0.5 per day. Started age 18.0 Years., 12/05/2022 Family History Heart disease: Father, Sister and Brother. Leukemia: Father. Immunizations Vaccine Date Status influenza virus vaccine, inactivated 05/18/2022 Recorded SARS-CoV-2 (COVID-19) mRNA BNT-162b2 vax 07/08/2021 Recorded SARS-CoV-2 (COVID-19) Ad (more content not included)...[facility]:Result Comment: Electronically Signed By: IVON CONTRERAS, Jayla Olmstead\Date and Time Signed: 12/05/22 13:43 [id number] Evaluation note * Encounter Date Diagnosis Assessment Notes Treatment Notes Treatment Clinical Notes December, Acute non-recurrent maxillary sinusitis (ICD-10 - J01.00) Instructed to use Robitussin or Mucinex for cough, saline or Flonase NS for congestion, Tylenol for pain and fever. December, ASHD (arteriosclerotic heart disease) (ICD-10 - I25.10) This patient is stable without activity related CP, dyspnea or lightheadedness. They are instructed to continue exercise and AHA diet plan. December, Suspected COVID-19 virus infection (ICD-10 - Z20.822) Recommend testing for COVID [facility] Other 04-10-2023 Evaluation note* Encounter Date Diagnosis Assessment Notes Treatment Notes Treatment Clinical Notes Nov, ASHD (arteriosclerotic heart disease) (ICD-10 - I25.10) This patient is stable without activity related CP, dyspnea or lightheadedness. They are instructed to continue exercise and AHA diet plan. Nov, Wellness examination (ICD-10 - Z00.00) Healthy diet and exercise. Reviewed age-appropriate preventive testing recommended. Nov, Primary hypertension (ICD-10 - I10) This patient is instructed to consume a healthy, low-fat, low-salt diet. They are also encouraged to continue exercise to achieve/maintain a normal BMI. Nov, Nonrheumatic aortic (valve) stenosis (ICD-10 - I35.0) No CP, tachycardia or syncope. Continue yearly Echo Nov, Aneurysm of ascending aorta without rupture (ICD-10 - I71.21) Control BP Serial CTA surveillance Nov, Elevated cholesterol (ICD-10 - E78.00) Diet and exercise with continued statin therapy. Nov, Cigarette nicotine dependence without complication (ICD-10 - F17.210) This patient has been encouraged to quit tobacco use immediately. They are aware of the hazards associated with tobacco use, including but not limited to respiratory infections, vascular disease and cancers. Nov, S/P aortic valve replacement (ICD-10 - Z95.2) Serial Echocardiogram Nov, Colon cancer screening (ICD-10 - Z12.11) Refer for screening colonoscopy in this asymptomatic, low risk patient [facility] Other 03-28-2023 Evaluation note* Encounter Date Diagnosis Assessment Notes Treatment Notes Treatment Clinical Notes Oct, Urinary hesitancy (ICD-10 - R39.11) Push fluids Not consistent w/ infection due to lack of continued symptoms and fever. BLadder stone? US kidney/ureter/blad cesia vs CT Oct, Right lower quadrant abdominal pain (ICD-10 - R10.31) Nonspecific, tenderness is mild. MOnitor for now. ER for increased pain CT if no improvement. Oct, ASHD (arteriosclerotic heart disease) (ICD-10 - I25.10) This patient is stable without activity related CP, dyspnea or lightheadedness. They are instructed to continue exercise and AHA diet plan. Oct, Cigarette nicotine dependence without complication (ICD-10 - F17.210) This patient has been encouraged to quit tobacco use immediately. They are aware of the hazards associated with tobacco use, including but not limited to respiratory infections, vascular disease and cancers. [facility] Chief Complaint: Patient here for 1 year follow up CAD, aortic valve disorder, and aneurysm of thoracic aorta. Had echo and CTA chest last month. Denies chest pain, and states his dyspnea on exertion remains unchanged from last year's visit. HPI: Nori De La Rosa is a 61 y.o. male With a history of Coronary artery disease, aortic valve disorder s/p valve replacement and aneurysm of the ascending thoracic aorta. He is doing well. He has no new symptoms Cardiology ROS: Review of Systems Respiratory: Positive for cough. All other systems reviewed and are negative. Past Medical History He has no past medical history on file. Surgical History He has a past surgical history that includes CT chest angiogram w and/or wo IV contrast (09/09/2016) and CT chest angiogram w and/or wo IV contrast (01/26/2020). Social History He has no history on file for tobacco use, alcohol use, and drug use. Family History No family history on file. Allergies Patient has no known allergies. Medications No current outpatient medications on file. Last Recorded Vitals Patient Vitals for the past 24 hrs: BP Pulse SpO2 Height Weight 09/18/22 0933 139/71 57 98 % 1.803 m (5' 11 ) 100 kg (221 lb) Physical Examination: GENERAL: alert and oriented x3, well developed, in no acute distress. HEAD: atraumatic, normocephalic. EYES: GLORIA, EOMI. NECK: trachea midline, no JVD present, no carotid bruits present. CARDIAC: S1, S2 present. RRR. No murmur, rubs, or gallops. RESPIRATORY: CTAB, no increased effort of breathing, no rales, rhonchi, or wheezing. ABDOMEN: soft, nontender, nondistended. EXTREMITIES: no lower extremity edema, peripheral pulses are 2+ bilaterally. No rash/skin discoloration present. NEURO: strength/sensation equal and symmetric in bilateral upper and lower extremities. PSYCH: appropriate mood, affect, and judgement. Investigations: CT chest 07/14/2022: Stable, scattered punctate pulmonary nodules measuring up to 5 mm 4.8 cm aneurysm of the ascending thoracic aorta. 2020: CTA IMPRESSION: No central pulmonary thromboembolic disease Stable 4.7 cm aneurysm of the ascending thoracic aorta Stable scattered punctate pulmonary nodules measuring up to 5 mm Echocardiogram 08/2022: Global left ventricular systolic function is normal; visually estimated ejection fraction is 55 to 60%. Abnormal septal motion. The right ventricle is normal in size and systolic function. A bioprosthetic aortic valve is seen with normal Doppler flows. The ascending aorta is moderately enlarged and measures 4.4 cm. Assessment: 1. Coronary atherosclerosis - S/P SVG-PDA 06/2015 I25.10: Atherosclerotic heart disease of [place] coronary artery without angina pectoris 2. 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 Aneurysm of thoracic aorta - 4.1 x 4.6 cm CTA 07/2014 NEED SERIAL MONITORING - SEES DR Raygoza- last visit was 01/26/2020 4.7 cm CTA 02/2021 and 08/2021 I71.2: Thoracic aortic aneurysm, without rupture THORACIC AORTIC ANEURYSM: CARE INSTRUCTIONS 4. Benign essential hypertension - I10: Essential (primary) hypertension HIGH BLOOD PRESSURE: CARE INSTRUCTIONS LEARNING ABOUT HIGH BLOOD PRESSURE Discussion Notes PLAN 1. We will repeat a CTA of the thoracic aorta 6 months from his last study to assure absence of significant growth; it has grown 0.1 cm since his last CTA 2. Continue medical rx; He is on both a beta-bg in the form of Toprol tartrate as well as an angiotensin-converting enzyme inhibitor in the form of Benzepril. Continue aspirin and statin for history of coronary artery disease. 3. Repeat CTA in a year given stability (4.7 cm); he sees [facility] surgery - will refer back as needed 4. Will repeat echocardiogram with next year's appointment 5. He is to follow-up with his primary care physician for the lung nodule seen on CT scan of the chest RTC in a year Kenna Harrison MD, MPH, [facility], [facility], [facility] Interventional Cardiology Pager Email: [email or web address] Plan note No data available for this section General Surgery [place] Evaluation noteNo InformationNort [employer] Other [facility] general Narrative - Reported* Type Description Date Medical History ASHD (arteriosclerotic heart dis ease) Medical History Primary hypertension Medical History Elevated cholesterol Medical History S/P aortic valve replacement Medical History Cigarette nicotine dependence wi thout complication Medical History Aneurysm of ascending aorta with out rupture Medical History Lumbar spondylosis Medical History Nonrheumatic aortic (valve) sten osis Medical History Pulmonary nodules Surgical History [facility] 2014 Surgical History AVR AND CABG 2015 Hospitalization History SEE SURGICAL HX [place] [employer] Other History general Narrative - Reported* Type Description Date Medical History ASHD (arteriosclerotic heart dis ease) Medical History Primary hypertension Medical History Elevated cholesterol Medical History S/P aortic valve replacement Medical History Cigarette nicotine dependence wi thout complication Medical History Aneurysm of ascending aorta with out rupture Medical History Lumbar spondylosis Medical History Nonrheumatic aortic (valve) sten osis Medical History Pulmonary nodules Surgical History [facility] 2013 Surgical History AVR AND CABG 2014 Surgical History Colonoscopy w/ polypectomy 12/23 22 Hospitalization History SEE SURGICAL HX [facility] Other History general Narrative - Reported* Type Description Date Medical History ASHD (arteriosclerotic heart dis ease) Medical History Primary hypertension Medical History Elevated cholesterol Medical History S/P aortic valve replacement Medical History Cigarette nicotine dependence wi thout complication Medical History Aneurysm of ascending aorta with out rupture Medical History Lumbar spondylosis Medical History Nonrheumatic aortic (valve) sten osis Medical History Pulmonary nodules Surgical History [facility] 2013 Surgical History AVR AND CABG 2014 Surgical History Colonoscopy w/ polypectomy, rep eat in 5 years 12/2022 Hospitalization History SEE SURGICAL HX [facility] Other Hospital Discharge instructions No data available for this section General Surgery [place] Progress note No data available for this section General Surgery [place] Summary Purpose Family History No Family History Records FoundNo Family History Records FoundNo Family History Records FoundNo Family History Records Found Advance Directives No Advanced Directives Records FoundNo Advanced Directives Records FoundNo Advanced Directives Records FoundNo Advanced Directives Records Found Reason for Referral Reason *FU 11/20 Screenin g colonoscopy in an asymptomatic, low risk patient Diagnosis 1 Colon cancer screeni ng (Z12.11) Referral Organization [facility] nichole Referring Provider First Name Jovani Referring Provider Last Name Vinnie Referring Provider Specialty [facility] Referred Organization [facility] Referred Provider Jayla Ramirez Referred Address [address], [place],[address] Referred Provider Specialty Surgery Referral Priority Routine General Notes Annmarie Rahman 04:32:30 PM >received today, attachments made, notes locked, referral faxed Clinical Notes [id number] Additional Source Comments (unrecognized sect ion and content) No Status Records FoundNo Status Records FoundNo Status Records FoundNo Status Records Found INFORMATION SOURCE (unrecogn ized section and content) DATE CREATED AUTHOR 02/20/2020 [facility] DATE CREATED AUTHOR AUTHOR'S ORGANIZ ATION 12/19/2022 [facility] DATE CREATED AUTHOR AUTHOR'S ORGANIZ ATION 01/13/2023 Abdirahman Cardoza [facility] DATE CREATED AUTHOR AUTHOR'S ORGANANASTASIYA ATION 04/16/2023 [facility] REASON FOR VISIT (unrecogniz ed section and content) Wants in todaystemelina Shrestha- [phone] infectionNo InformationNo InformationNo Information6 month Follow up Patient Care team informatio n (unrecognized section and content) Personnel Name: JOVANI BIRMINGHAM DO Address: Address: [address] FOR RECORDS PERTAINING TO PATIENTS WHO ARE OR HAVE BEEN ENROLLED IN A CHEMICAL DEPENDENCY/SUBSTANCEABUSE PROGRAM, SOME INFORMATION MAY BE OMITTED. This clinical summary was aggregated from multiple sources. Caution should be exercised in using it in the provision of clinical care. This summary normalizes information from multiple sources, and as a consequence, information in this document may materially change the coding, format and clinical context of patient data. In addition, data may be omitted in some cases. CLINICAL DECISIONS SHOULD BE BASED ON THE PRIMARY CLINICAL RECORDS. [employer] provides no warranty or guarantee of the accuracy or completeness of information in this document.
--- NOTE | 2023-10-02 09:08 | CT_ITS ---
[address] [address] Patient Name: NORI SHARPE MRN: [id number] date: 1960 Sex: M Assigned Patient Location: LAB Current Patient Location: LAB Accession/Order Number: [id number] Exam Date: 10/02/2023 09:28 Report Date: 10/02/2023 12:07 At the request of: JLUIS FLORENTINO Procedure: CT angio chest EXAMINATION: CT angio chest HISTORY: Aortic Aneurysm Of Thoracic Aorta I71.21 COMPARISON: 03/20/2023 TECHNIQUE: Multi-planar CT images were created with IV contrast. Axial, Coronal, and Sagittal images. Dose reduction techniques were achieved by using automated exposure control and/or adjustment of mA and/or kV according to patient size and/or use of iterative reconstruction technique. FINDINGS: LUNGS: A few scattered subcentimeter pulmonary nodules largest measuring 5 mm left lower lobe axial image #68. No new significant nodule or mass PLEURA: No mass, effusion, or pneumothorax. VASCULATURE: No abnormality. TOÑO: No mass or adenopathy. MEDIASTINUM: No mass or adenopathy. CARDIAC: No enlargement or pericardial effusion. Moderate coronary atherosclerosis AORTA: Aneurysm of the distal descending thoracic aorta measuring 5.0 x 4.9 cm on axial image 46 slightly increased from the prior exam.. The aorta previously measured 4.7 x 5.0 cm in the same spot. Aortic valve replacement CHEST WALL: No mass or axillary adenopathy. BONES: No bone lesion or fracture. LIMITED ABDOMEN: No suspicious findings. Limited images of the upper abdomen. OTHER: Negative. CT/CT angio chest IMPRESSION: Aneurysm of the ascending thoracic aorta measuring a maximum of 5.0 x 4.9 cm. Grossly stable to minimally enlarged from the 2022 exam Electronically authenticated by: JOSE PORTER Date: 10/02/2023 12:07
[2023-10-02 09:18] LABS: Estimated GFR (African America >60 (>=60); Estimated GFR (Non-African Ame >60 (>=60)
== END 2023-10-02 09:00 | disposition home or self-care (01) ==
LOC: LAB 09:00
PROVIDERS: PCP Internal Medicine; Visit Provider Internal Medicine Interventional Cardiology
DX: I71.21 Aneurysm of the ascending aorta, without rupture (principal)
CPT/HCPCS: 36415; 71275; 82565; Q9967

== ENCOUNTER 2023-11-15 09:48 | Outpatient (OUT) | payer MEDICARE, SELFPAY ==
[2023-11-15 10:20] LABS: Basophils Percent Auto 0.4 % (0.2-2.0); Eosinophils Absolute Auto 0.1 10^3/uL (0.0-0.7); Eosinophils Percent Auto 1.2 % (0.9-7.0); Hematocrit 45.4 % (42.0-54.0); Hemoglobin 15.2 g/dL (14.0-18.0); Immature Granulocytes Abs Auto 0.02 10^3/uL (0.00-0.03); Immature Granulocytes Pct Auto 0.2 % (0.0-0.5); Lymphocytes Absolute Auto 2.3 10^3/uL (1.2-3.8); Lymphocytes Percent Auto 26.9 % (20.5-60.0); Mean Corpuscular HGB Conc 33.5 g/dL (29.9-35.2); Mean Corpuscular Volume 92.5 fL (80.0-94.0); Mean Platelet Volume 9.9 fL (9.5-13.5); Monocytes Absolute Auto 0.9 10^3/uL (0.3-0.8); Monocytes Percent Auto 10.2 % (1.7-12.0); Neutrophils Absolute Auto 5.2 10^3/uL (1.4-6.5); Neutrophils Percent Auto 61.1 % (43.0-75.0); Platelet Count 193 10^3/uL (150-450); Red Blood Count 4.91 10^6/uL (4.70-6.10); Red Cell Distribution Width 12.6 % (11.0-15.0); White Blood Count 8.5 10^3/uL (4.0-11.0)
[2023-11-15 10:58] LABS: Alanine Aminotransferase 30 U/L (16-63); Albumin Globulin Ratio 1.1; Albumin Level 3.8 g/dL (3.4-5.0); Alkaline Phosphatase 103 U/L (46-116); Anion Gap 13.4; Aspartate Amino Transferase 14 U/L (15-37); BUN Creatinine Ratio 10.3; Bilirubin Total 0.6 mg/dL (0.2-1.0); Calcium 9.7 mg/dL (8.5-10.1); Chloride 103 mmol/L (98-107); Chol HDL Ratio 3.5; Cholesterol 119 mg/dL (<=200); Estimated GFR (African America >60 (>=60); Estimated GFR (Non-African Ame >60 (>=60); Globulin 3.4 g/dL; Glucose 107 mg/dL (74-106); HDL Cholesterol 34 mg/dL (40-60); Potassium 4.4 mmol/L (3.5-5.1); Sodium 141 mmol/L (136-145); Total Protein 7.2 g/dL (6.4-8.2); Triglycerides 299 mg/dL (<=150); VLDL CHOLESTEROL 59.8 mg/dL
[2023-11-15 12:06] LABS: Prostate Specific Antigen Scrn 0.54 ng/mL (<=4.00)
== END 2023-11-15 09:49 | disposition home or self-care (01) ==
LOC: LAB 09:50
PROVIDERS: PCP Internal Medicine; Visit Provider Internal Medicine
DX: Z12.5 Encounter for screening for malignant neoplasm of prostate (principal); I71.21 Aneurysm of the ascending aorta, without rupture; I25.10 Atherosclerotic heart disease of native coronary artery without angina pectoris; I10 Essential (primary) hypertension; E78.00 Pure hypercholesterolemia, unspecified
CPT/HCPCS: 36415; 80053; 80061; 85025; G0103

== ENCOUNTER 2024-03-13 07:43 | Outpatient (OUT) | payer MEDICARE, SELFPAY ==
--- OUTSIDE RECORDS SUMMARY | 2024-03-13 07:46 | XMS_ITS | CCD ---
Author Organization [facility] CliniSyms Care Team Providers Care Warp Placer Name Role Phone MEME CRAMER Admitting Unavailable MEME CRAMER Attending Unavailable JOVANI BIRMINGHAM Primary Care Unavailable SELF, REFERRED Referring Unavailable [...] Attending Unavailable NILL, Jayla Srivastava Attending Unavailable BLEVINS, DINAH Attending Unavailable ELTAHAWY, KENNA Attending Unavailable BLEVINS, DINAH Referring Unavailable BLEVINS, DINAH Referring Unavailable Allergies Allergy Classification Reported Allergen(s) Allergy Type Date of Onset Reaction(s) Facility (1 source) No Known Medication Allergies; Translations: [No Known Medication Allergies] Propensity to adverse reactions (disorder) [facility] Repository (2 sources) patient allergy list reviewed by nurse or physicia Propensity to adverse reactions Comment:Done [facility] Other Medications Current Medications Medication Drug Class(es) Dates Sig (Normalized) Sig (Original) aspirin 81 mg delayed release oral tablet (12 sources) Platelet Aggregation Inhibitor, Nonsteroidal Anti-inflammatory Drug Start: 11-10-2023 take 81 mg by mouth once daily Aspirin Active 81 MG PO Daily November 10, 2023 12:00am Start: 11-28-2022 take 1 tablet by isabel th once daily aspirin 81 mg Oral EC Tab 81 mg = 1 tab(s), Oral, Daily, Oral, Refills(s) 0 Start Date: 11/28/22 Status: Ordered take 1 tablet by isabel th once daily Aspirin 81 81 MG 1 tablet Orally Once a day Active atorvastatin 80 mg oral tablet (12 sources) HMG-CoA Reductase Inhibitor Start: 11-10-2023 take 80 mg by mouth once daily Atorvastatin Active 80 MG PO Daily November 10, 2023 12:00am Start: 11-28-2022 take 1 tablet by isabel th once daily atorvastatin 80 mg Tab 80 mg = 1 tab(s), Oral, Daily, Oral, Refills(s) 0 Start Date: 11/28/22 Status: Ordered azithromycin 250 mg oral tablet (5 sources) Macrolide Antimicrobial Start: 12-04-2022 Azithromycin 250 MG as directed Orally daily for 5 days December, Active benazepril hydrochloride 40 mg oral tablet (12 sources) Angiotensin Converting Enzyme Inhibitor Start: 11-10-2023 take 40 mg by mouth once daily Benazepril Active 40 MG PO Daily November 10, 2023 12:00am Start: 11-28-2022 take 1 tablet by isabel th once daily benazepril 40 mg oral tablet 40 mg = 1 tab(s), Oral, Daily, Oral, Refills(s) 0 Start Date: 11/28/22 Status: Ordered clopidogrel 75 mg oral tablet (12 sources) P2Y12 Platelet Inhibitor Start: 11-10-2023 take 75 mg by mouth once daily Clopidogrel Active 75 MG PO Daily November 10, 2023 12:00am Start: 11-28-2022 take 1 tablet by isabel th once daily clopidogrel 75 mg Tab 75 mg = 1 tab(s), Oral, Daily, Oral, Refills(s) 0 Start Date: 11/28/22 Status: Ordered metoprolol tartrate 25 mg oral tablet (12 sources) beta-Adrenergic Bg Start: 11-10-2023 take 25 mg by mouth twice daily Metoprolol Tartrate Active 25 MG PO Twice daily November 10, 2023 12:00am Start: 11-28-2022 take 1 tablet by isabel th twice daily Metoprolol tartrate 25 mg Tab [...] Date Documented Da te Episodic/Chronic Abdominal pain (12 sources) Right lower quadrant pain; Translations: [Right lower quadrant pain] Episodic Aortic; peripheral; and visceral artery aneurysms (7 sources) Aneurysm of ascending aorta; Translations: [Thoracic aortic aneurysm without rupture] Onset: 08-18-2022 11-28-2022 Chronic Coronary atherosclerosis and other heart disease (20 sources) Coronary arteriosclerosis; Translations: [Atherosclerotic heart disease of jackson coronary artery without angina pectoris] Onset: 03-06-2016 Chronic Disorders of lipid metabolism (20 sources) Hypercholesterolemia ; Translations: [Pure hypercholesterolemia , unspecified] Onset: 08-06-2014 Chronic Essential hypertension (18 sources) Essential hypertension; Translations: [Essential (primary) hypertension] Chronic Genitourinary symptoms and ill-defined conditions (12 sources) Delay when starting to pass urine; Translations: [Hesitancy of micturition] Episodic Heart valve disorders (20 sources) History of aortic valve replacement; Translations: [Presence of prosthetic heart valve] Onset: 08-18-2022 Chronic Other congenital anomalies (2 sources) Congenital spondylolysis of lumbosacral region; Translations: [Congenital spondylolysis, lumbosacral region] Onset: 03-06-2016 Chronic Other lower respiratory disease (12 sources) Multiple nodules of lung; Translations: [Other nonspecific abnormal finding of lung field] 11-28-2022 Episodic Other lower respiratory disease (8 sources) Other nonspecific abnormal finding of lung field; Translations: [Other nonspecific abnormal finding of lung field] Onset: 07-14-2022 Episodic Other lower respiratory disease [...] to excess calories] Onset: 06-26-2014 Chronic Other nutritional; endocrine; and metabolic disorders (3 sources) Obesity; Translations: [Obesity, unspecified] Resolved: 02-25-2021 11-14-2023 Chronic Other nutritional; endocrine; and metabolic disorders (1 source) Obesity, unspecified; Translations: [Obesity, unspecified] 11-14-2023 Chronic Other screening for suspected conditions (not mental disorders or infectious disease) (5 sources) Encounter for screening for malignant neoplasm of colon; Translations: [Screening for malignant neoplasm of colon done] Onset: 11-19-2022 Episodic Other upper respiratory infections (2 sources) Acute maxillary sinusitis, unspecified Episodic Spondylosis; intervertebral disc disorders; other back problems (14 sources) Lumbar spondylosis; Translations: [Spondylosis without myelopathy [...] ASCEND AORTA W/O RUPTURE] Onset: 07-20-2022 Unclassified (3 sources) Thoracic aortic aneurysm, without rupture, unspecified; Translations: [Thoracic aortic aneurysm, without rupture, unspecified] Onset: 09-18-2022 Unclassified (3 sources) Aneurysm of the ascending aorta, without rupture; Translations: [Aneurysm of the ascending aorta, without rupture] Past or Other Problems Problem Classification Problem Date Documented Da te Episodic/Chronic Residual codes; unclassified (2 sources) Tobacco user; [...] (1 source) Suspected COVID-19 virus infection Z20.822 Unclassified (1 source) Thoracic aortic aneurysm, without rupture, unspecified; Translations: [Thoracic aortic aneurysm, without rupture, unspecified] Onset: 10-16-2023 Results Test Name Value Interpretation Reference Range Facility Office Visiton 10-16-2023 Follow-up visit [id number] Nori De La Rosa 1960 M Date Provider Department Center 10/16/2023 [id number] BLEVINS [facility]CVASENDO [place] [facility] Family History Problem Relation Age of Onset Coronary artery disease Father Other Father Family Status - Relation Status Age at Father Level of Service:26095 HI OFFICE/OP CONSLTJ NEW/EST PT LOW MDM 30 MINUTES Reason for Visit and Comments: New Patient [632] Normal [facility] Office Visiton 10-10-2023 Follow-up visit [id number] Nori De La Rosa 1960 M Date Provider Department Center 10/10/2023 Irwin-KENNA HARRISON [facility]FFRE[facility] Family History Problem Relation Age of Onset Coronary artery disease Father Other Father Family Status - Relation Status Age at Father Level of Service:92796 HI OFFICE/OUTPATIENT ESTABLISHED MOD MDM 30 MIN Normal [facility] Estimated glomerular filtrat ion rate (GFR) non- Americanon 10-02-2023 GFR/1.73 sq M.predicted among non-blacks MDRD (S/P/Bld) [Vol rate/Area] mL/min/{1.73_m2} >=60 [facility] Laboratory - Chemistry and C hemistry - challengeon 10-02-2023 Creatinine [Mass/Vol] 1.07 mg/dL 0.70-1.30 [facility] GFR/1.73 sq M.predicted MDRD (S/P/Bld) [Vol rate/Area] mL/min/{1.73_m2} >=60 [facility] Orders Onlyon 04-12-2023 Orders Only [id number] Armand De La Rosadoroteo Valdez 1960 M Date Provider Department [facility] Family History Problem Relation Age of Onset Coronary artery disease Father Other Father Family Status - Relation Status Age at Father Normal [facility] Pathology Noteon 01-04-2023 Pathology Note [id number]#1 .00CD:127 [facility] Outside Colonoscopyon 2022 Outside Colonoscopy [id number]#1 .00CD:127 [facility] Pre-Certification Formon Pre-Certification Form [id number]# 1.00CD:127 [facility] Consent for Procedure/Surger yon 12-07-2022 Consent for Procedure/Surgery [id number]#1 .00CD:127 [facility] Facesheeton 12-07-2022 Facesheet [id number]#1 .00CD:127 [facility] Physician Referralon 023 Physician Referral [id number]#1 .00CD:127 [facility] Physician Referral [id number]#1 .00CD:127 [facility] Ambulatory Visit Summaryon 0 12-05-2022 Ambulatory Visit [...] colon Thoracic aortic aneurysm without rupture Normal [facility] Physician Referralon 023 Physician Referral [id number] .00CD:127 Normal [facility] CBC AUTO DIFFon 11-13-2022 BASO # 0.0 103/ul Normal 0.0-0.1 [facility] Comment on above: Performed By: #### C BC #### [facility] [address] [place] [address] Dr. Charity Connors Basophils/100 WBC (Bld) 0.4 % Normal 0.2-2.0 [facility] Comment on above: Performed By: #### C BC #### [facility] [address] [place] [address] Dr. Charity Connors EO # 0.1 103/ul Normal 0.0-0.7 [facility] Comment on above: Performed By: #### C BC #### [facility] [address] [place] [address] Dr. Charity Connors Eosinophils/100 WBC (Bld) 1.2 % Normal 0.9-7.0 [facility] Comment on above: Performed By: #### C BC #### [facility] [address] [place] [address] Dr. Charity Connors Erythrocyte distribution width (RBC) [Ratio] 12.8 % Normal 11.0-15.0 [facility] Comment on above: Performed By: #### C BC #### [facility] [address] [place] [address] Dr. Charity Connors Hematocrit (Bld) [Volume fraction] 42.2 % Normal 42.0-54.0 [facility] Comment on above: Performed By: #### C BC #### [facility] [address] [place] [address] Dr. Charity Connors Hemoglobin (Bld) [Mass/Vol] 14.4 g/dL Normal 14.0-18.0 [facility] Comment on above: Performed By: #### C BC #### [facility] [address] [place] [address] Dr. Charity Connors IG # 0.02 10e3/ul Normal 0.00-0.03 [facility] Comment on above: Performed By: #### C BC #### [facility] [address] [place] [address] Dr. Charity Connors IG % 0.3 % Normal 0.0-0.5 [facility] Comment on above: Performed By: #### C BC #### [facility] [address] [place] [address] Dr. Charity Connors LYMPH # 2.2 103/ul Normal 1.2-3.8 [facility] Comment on above: Performed By: #### C BC #### [facility] [address] [place] [address] Dr. Charity Connors Lymphocytes/100 WBC (Bld) 30.3 % Normal 20.5-60.0 [facility] Comment on above: Performed By: #### C BC #### [facility] [address] [place] [address] Dr. Charity Connors MANUAL DIFF REQ NO Normal [facility] Comment on above: Performed By: #### C BC #### [facility] [address] [place] [address] Dr. Charity Connors MCH (RBC) [Entitic mass] 31.0 pg Normal 25.9-34.0 [facility] Comment on above: Performed By: #### C BC #### [facility] [address] [place] [address] Dr. Charity Connors MCHC (RBC) [Mass/Vol] 34.1 g/dL Normal 29.9-35.2 [facility] Comment on above: Performed By: #### C BC #### [facility] [address] [place] [address] Dr. Charity Connors MCV (RBC) [Entitic vol] 90.9 fL Normal 80.0-94.0 [facility] Comment on above: Performed By: #### C BC #### [facility] [address] [place] [address] Dr. Charity Connors MONO # 0.7 103/ul Normal 0.3-0.8 [facility] Comment on above: Performed By: #### C BC #### [facility] [address] [place] [address] Dr. Charity Connors Monocytes/100 WBC (Bld) 9.1 % Normal 1.7-12.0 [facility] Comment on above: Performed By: #### C BC #### [facility] [address] [place] [address] Dr. Charity Connors NEUT # 4.3 103/ul Normal 1.4-6.5 [facility] Comment on above: Performed By: #### C BC #### [facility] [address] [place] [address] Dr. Charity Connors Neutrophils/100 WBC (Bld) 58.7 % Normal 43.0-75.0 [facility] Comment on above: Performed By: #### C BC #### [facility] [address] [address] [address] Charity Connors Platelet mean volume (Bld) [Entitic vol] 9.3 fL Critically low 9.5-13.5 [facility] Comment on above: Performed By: #### C BC #### [facility] [address] [address] [address] Charity Connors PLT 450 103/ul Normal 150-450 [facility] Comment on above: Performed By: #### C BC #### [facility] [address] [address] [address] Charity Connors RBC 4.64 106/ul Critically low 4.70-6.10 [facility] Comment on above: Performed By: #### C BC #### [facility] [address] [address] [address] Charity Connors WBC 7.3 103/ul Normal 4.0-11.0 [facility] Comment on above: Performed By: #### C BC #### [facility] [address] [address] [address] Charity Connors Complete Blood Count and Dif cyndie 11-13-2022 Anisocytosis Ql (Bld) [facility] Other Basophilic stippling LM Ql (Bld) [facility] Other RBC morphology finding Nom (Bld) [facility] Other Complete Blood Count and Diff [facility] Other Comprehensive Metabolic Pane cary 11-13-2022 Albumin [Mass/Vol] 3.910620 g/dL 3.4-5.0 g/dL [facility] Other Calcium [Mass/Vol] 9.1463114 mg/dL 8.5-10.1 mg/ dL [facility] Other CO2 [Moles/Vol] 29.56794315 mmol/L 21.0-3 2.0 mmol/L [facility] Other Creatinine [Mass/Vol] 0.26566920 mg/dL 0.70-1.30 mg/dL [facility] Other Potassium [Moles/Vol] 4.69847373 mmol/L 3.5-5.1 mmol/L [facility] Other Protein [Mass/Vol] 8.343373 g/dL Critically high 6.4-8.2 g /dL [facility] Other Urea nitrogen [Mass/Vol] 12.5519166 mg/dL 7.0-18.0 mg/dL [facility] Other Comprehensive Metabolic Panel see note [facility] Other Comprehensive Metabolic Panel 138 mmol/L 136-145 mmol/L [facility] Other Comprehensive Metabolic Panel 110 mg/dL Critically high 74-106 mg/dL [facility] Other Comprehensive Metabolic Panel >60 mL/min/1.73m2 >=60 mL/min/1.73m2 [facility] Other Comprehensive Metabolic Panel 0.4 mg/dL 0.2-1.0 mg/dL [facility] Other Comprehensive Metabolic Panel 4.9 g/dL [facility] Other Albumin/Globulin [Mass ratio] 0.7 {ratio} Normal [facility] Other Comment on above: Performed By: #### C MP, LIPID #### [facility] [address] [address] [address] Charity Connors ALP [Catalytic activity/Vol] 95 U/L Normal 46-116 [facility] Other Comment on above: Performed By: #### C MP, LIPID #### [facility] [address] [place], [place] [address] Dr. Charity Connors ALT [Catalytic activity/Vol] 62 U/L Normal 16-63 [facility] Other Comment on above: Performed By: #### C MP, LIPID #### [facility] [address] [address] [address] Charity Connors Anion gap [Moles/Vol] 11.6 mmol/L Normal [facility] [employer] Other Comment on above: Performed By: #### C MP, LIPID #### [facility] [address] [address] [address] Charity Connors AST [Catalytic activity/Vol] 22 U/L Normal 15-37 [facility] Other Comment on above: Performed By: #### C MP, LIPID #### [facility] [address] [address] [address] Charity Connors Chloride [Moles/Vol] 102 mmol/L Normal 98-107 [facility] [employer] Other Comment on above: Performed By: #### C MP, LIPID #### [facility] [address] [place] [address] Dr. Charity Connors Urea nitrogen/Creatinin e [Mass ratio] 13.8 mg/mg Normal [facility] [employer] Other Comment on above: Performed By: #### C MP, LIPID #### [facility] [address] [place] [address] Dr. Charity Connors LIPID PROFILEon 11-13-2022 CHOL-HDL RATIO NORM SEE BELOW Normal [facility] Comment on above: Result Comment: 3.3 - 4.4 LOW RISK 4.4 - 7.1 AVERAGE RISK 7.1 - 11.0 MODERATE RISK >11.0 HIGH RISK Performed By: #### C MP, LIPID #### [facility] [address] [place] [address] Dr. Charity Connors Cholesterol in LDL [Mass/Vol] 38.0 mg/dL Normal [facility] Comment on above: Performed By: #### C MP, LIPID #### [facility] [address] [place] [address] Dr. Charity Connors HDL NORMAL > or = 60 mg/dl - LO W CARDIOVASCULAR RISK <40 mg/dl - HIGH CARDIOVASCULAR RISK Normal [facility] Comment on above: Performed By: #### C MP, LIPID #### [facility] [address] [address] [address] Charity Connors LDL CALC NORMAL SEE BELOW Normal [facility] Comment on above: Result Comment: <100 mg/dl OPTIMAL 100 - 129 mg/dl NEAR OR ABOVE OPTIMAL 130 - 159 mg/dl BORDERLINE HIGH 160 - 189 mg/dl HIGH >190 mg/dl VERY HIGH Performed By: #### C MP, LIPID #### [facility] [address] [address] [address] Charity Connors VLDL CALC 40.0 mg/dL Normal [facility] Comment on above: Performed By: #### C MP, LIPID #### [facility] [address] [address] [address] Charity Connors Lipid Panelon 11-13-2022 Lipid Panel > or = 60 mg/dl - LO W CARDIOVASCULAR RISK <40 mg/dl - HIGH CARDIOVASCULAR RISK [facility] Other Lipid Panel SEE BELOW [facility] Other Lipid Panel 38.0 mg/dL [facility] Other Lipid Panel 40.0 mg/dL [facility] Other Cholesterol [Mass/Vol] 107 mg/dL Normal <=200 [facility] Other Comment on above: Performed By: #### C MP, LIPID #### [facility] [address] [address] [address] Charity Connors Cholesterol in HDL [Mass/Vol] 29 mg/dL Critically low 40-60 [facility] Other Comment on above: Performed By: #### C MP, LIPID #### [facility] [address] [address] [address] Charity Connors Cholesterol.total/ Cholesterol in HDL [Mass ratio] 3.7 {ratio} Normal [facility] Other Comment on above: Performed By: #### C MP, LIPID #### [facility] [address] [address] [address] Charity Connors Triglyceride [Mass/Vol] 200 mg/dL Critically high <=150 [facility] Other Comment on above: Performed By: #### C MP, LIPID #### [facility] [address] [address] [address] Charity Connors PROF 14(COMP METB)on 023 Albumin [Mass/Vol] 3.6 g/dL Normal 3.4-5.0 [facility] Comment on above: Performed By: #### C MP, LIPID #### [facility] [address] [address] [address] Charity Connors Bilirubin [Mass/Vol] 0.4 mg/dL Normal 0.2-1.0 [facility] Comment on above: Performed By: #### C MP, LIPID #### [facility] [address] [address] [address] Charity Connosr Calcium [Mass/Vol] 9.8 mg/dL Normal 8.5-10.1 [facility] Comment on above: Performed By: #### C MP, LIPID #### [facility] [address] [address] [address] Charity Connors CO2 [Moles/Vol] 29.2 mmol/L Normal 21.0-32.0 [facility] Comment on above: Performed By: #### C MP, LIPID #### [facility] [address] [address] [address] Charity Cnonors Creatinine [Mass/Vol] 0.87 mg/dL Normal 0.70-1.30 [facility] Comment on above: Performed By: #### C MP, LIPID #### [facility] [address] [address] [address] Charity Connors EGFR-AF RUSSIAN >60 Normal >=60 [facility] Comment on above: Performed By: #### C MP, LIPID #### [facility] [address] [address] [address] Charity Connors EGFR-NON AF RUSSIAN >60 Normal >=60 [facility] Comment on above: Performed By: #### C MP, LIPID #### [facility] [address] [address] [address] Charity Connors Globulin (S) [Mass/Vol] 4.9 g/dL Normal [facility] Comment on above: Performed By: #### C MP, LIPID #### [facility] [address] [address] [address] Charity Connors Glucose [Mass/Vol] 110 mg/dL Critically high 74-106 [facility] Comment on above: Performed By: #### C MP, LIPID #### [facility] [address] [address] [address] Charity Connors Potassium [Moles/Vol] 4.8 mmol/L Normal 3.5-5.1 [facility] Comment on above: Performed By: #### C MP, LIPID #### [facility] [address] [place] [address] Dr. Charity Connosr Protein [Mass/Vol] 8.5 g/dL Critically high 6.4-8.2 [facility] Comment on above: Performed By: #### C MP, LIPID #### [facility] [address] [address] [address] Charity Connors Sodium [Moles/Vol] 138 mmol/L Normal 136-145 [facility] Comment on above: Performed By: #### C MP, LIPID #### [facility] [address] [address] [address] Charity Connors Urea nitrogen [Mass/Vol] 12.0 mg/dL Normal 7.0-18.0 [facility] Comment on above: Performed By: #### C MP, LIPID #### [facility] [address] [address] [address] Charity Connors CREATININEon 08-16-2022 Creatinine [Mass/Vol] 0.96 mg/dL Normal 0.70-1.30 [facility] Comment on above: Performed By: #### C JC #### [facility] [address] [address] [address] Charity Connors EGFR-AF RUSSIAN >60 Normal >=60 [facility] Comment on above: Performed By: #### C JC #### [facility] [address] [place], [place] [address] Dr. Charity Connors EGFR-NON AF RUSSIAN >60 Normal >=60 [facility] Comment on above: Performed By: #### C JC #### [facility] [address] [place], [place] [address] Dr. Charity Connors CTA CHEST WO W [...] by: AMNA BERNSTEIN Date: 2022-08-16 10:09 Normal [facility] ECHOCARDIO M/2D COMPLETEon 0 08-16-2022 ECHOCARDIO M/2D COMPLETE Patient: NORI DE LA ROSA Exam Date: 08/16/2022 : 1960 Gender:M Ordering : DR KENNA HARRISON M.D. Admission #: [id number] Family : DR JOVANI BIRMINGHAM D.O. Order #: [id number] CLICK HERE TO VIEW EXAM ECHOCARDIOGRAM REPORT [...] Harrison M.D. on 08/17/2022 at 13:12 Normal [facility] CT CHEST WO CONon 07-14-2022 CT CHEST [...] by: JOSE PORTER Date: 2022-07-14 12:44 Normal [facility] CTA CHESTon 01-26-2020 CTA CHEST [facility] Department of Radiology [address] [place] [id number] Patient Name: NORI DE LA ROSA : 1960 Sex: M Age: Race: White Pt. Location: Patient Status: O Ordered Date: 12/09/2019 11:30:00 AM Completed Date: 01/26/2020 09:08 AM Requesting Provider: MEME CRAMER Attending Provider: MEME CRAMER Report Copy To: JOVANI BIRMINGHAM Signs & Symptoms: I71.2 Thoracic aortic aneurysm, without rupture I10 History: [place] Patient [place] home per clinic. [id number] no pc required per [employer] ref# [id number] 01/11 Comments: Exam: CTA CHEST CTA CHEST [...] lobe. Electronically signed: Kat Joiner. Transcribed by: [email or web address], User Resident: Electronically Signed by: KAT JOINER @ 01/26/2020 09:29 AM Normal [facility] Vital Signs Date Time Vital Sign Value Performing Clinician Facility 11-14-2023 08:40-0400 Body height 172.72 cm [facility] 11-14-2023 08:40-0400 Body mass index (BMI) [Ratio] 32.9 kg/m2 [facility] 11-14-2023 08:40-0400 Body weight 98.2 kg [facility] 11-14-2023 08:40-0400 Diastolic blood pressure 83 mm[Hg] [facility] 11-14-2023 08:40-0400 Heart rate 66 /min [facility] 11-14-2023 08:40-0400 Respiratory rate 12 /min [facility] 11-14-2023 08:40-0400 Systolic blood pressure 151 mm[Hg] [facility] 05-15-2023 08:30-0400 Body height 172.72 cm Jovani Ball Other [facility] Other 05-15-2023 08:30-0400 Body mass index (BMI) [Ratio] 31.68 kg/m2 Jovani Ball Other [facility] Other 05-15-2023 08:30-0400 Body weight 94.53 kg Jovani Ball Other [facility] Other 05-15-2023 08:30-0400 Diastolic blood pressure 80 mm[Hg] Jovani Ball Other [facility] Other 05-15-2023 08:30-0400 Respiratory rate 12 /min Jovani Ball Other [facility] Other 05-15-2023 08:30-0400 Systolic blood pressure 124 mm[Hg] Jovani Ball Other [facility] Other 12-13-2022 16:30-0400 Body height 172.72 cm Jovani Ball Other [facility] Other 12-13-2022 16:30-0400 Body mass index (BMI) [Ratio] 32.26 kg/m2 Jovani Ball Other [facility] Other 12-13-2022 16:30-0400 Body weight 96.25 kg Jovani Ball Other [facility] Other 12-13-2022 16:30-0400 Diastolic blood pressure 79 mm[Hg] Jovani Ball Other [facility] Other 12-13-2022 16:30-0400 Respiratory rate 12 /min Jovani Ball Other [facility] Other 12-13-2022 16:30-0400 Systolic blood pressure 148 mm[Hg] Jovani Ball Other [facility] Other 12-05-2022 13:10-0400 Blood Pressure Location Jayla PurswayL [facility] [place] 12-05-2022 13:10-0400 Diastolic blood pressure 84 mm[Hg] Jayla NILL [facility] [place] 12-05-2022 13:10-0400 Heart rate 76 /min Jayla NILL [facility] [place] 12-05-2022 13:10-0400 Respiratory rate 16 /min Jayla NILL [facility] [place] 12-05-2022 13:10-0400 Systolic blood pressure 144 mm[Hg] Jayla NILL [facility] [place] 11-13-2022 10:30-0400 Body height 172.72 cm Jovani Ball Other [facility] Other 11-13-2022 10:30-0400 Body mass index (BMI) [Ratio] 32.26 kg/m2 Jovani Ball Other [facility] Other 11-13-2022 10:30-0400 Body weight 96.25 kg Jovani Ball Other [facility] Other 11-13-2022 10:30-0400 Diastolic blood pressure 74 mm[Hg] Jovani Ball Other [facility] Other 11-13-2022 10:30-0400 Respiratory rate 12 /min Jovani Ball Other [facility] Other 11-13-2022 10:30-0400 Systolic blood pressure 145 mm[Hg] Jovani Birmingham Other [facility] Other 10-31-2022 15:45-0400 Body height 172.72 cm Jovani Birmingham Other [facility] Other 10-31-2022 15:45-0400 Body mass index (BMI) [Ratio] 33.33 kg/m2 Jovani Birmingham Other [facility] Other 10-31-2022 15:45-0400 Body weight 99.43 kg Jovani Birmingham Other [facility] Other 10-31-2022 15:45-0400 Diastolic blood pressure 70 mm[Hg] Jovani Birmingham Other [facility] Other 10-31-2022 15:45-0400 Respiratory rate 12 /min Jovani Birmingham Other [facility] Other 10-31-2022 15:45-0400 Systolic blood pressure 122 mm[Hg] Jovani Birmingham Other [facility] Other Encounters Encounter Date Encounter Type Care Provider Facility Start: 11-14-2023 End: 11-14-2023 ambulatory [facility] Work Phone: Start: 11-14-2023 End: 11-14-2023 Encounter for general adult medical examination without abnormal findings [facility] Start: 11-14-2023 End: 11-14-2023 Patient encounter procedure [facility] Work Phone: Start: 10-16-2023 ambulatory [facility] Start: 10-11-2023 End: 10-12-2023 ambulatory [facility] Start: 10-10-2023 End: 10-11-2023 ambulatory [facility] Start: 10-10-2023 End: 10-10-2023 ambulatory E[facility] SHEAV[facility] Start: 10-02-2023 Non-patient / Non-visit [facility] Work Phone: Start: 10-02-2023 Non-patient / Non-visit [facility] [employer] Work Phone: Start: 05-15-2023 End: 05-15-2023 ambulatory Jovani Birmingham Other [facility] Other Start: 05-15-2023 Office outpatient vi sit 25 minutes Jovani Birmingham [facility] Start: 03-20-2023 End: 03-20-2023 ambulatory Jovani Birmingham Other [facility] Other Start: 03-20-2023 Telephone encounter Jovani Birmingham [facility] Start: 01-04-2023 End: 01-04-2023 ambulatory Jovani Birmingham Other [facility] Other Start: 01-04-2023 Telephone encounter Jovani APARICIO [facility] Start: 12-27-2022 End: 12-28-2022 ambulatory JAYLA COOKL Facility:[facility] Start: 12-13-2022 End: 12-13-2022 ambulatory Jovani Birmingham Other [facility] Other Start: 12-13-2022 Office outpatient vi sit 15 minutes Jovani Birmingham [facility] Start: 12-05-2022 End: 12-06-2022 ambulatory Jayla R NILMiranda Facility:[facility] Start: 12-05-2022 End: 12-05-2022 Patient encounter procedure Jayla R NILL [facility] Nill/[facility] [place] Start: 12-04-2022 End: 12-04-2022 ambulatory Jovani Birmingham Other [facility] Other Start: 12-04-2022 Office outpatient vi sit 15 minutes Jovani Birmingham [facility] Start: 11-19-2022 Encounter for genera l adult medical examination without abnormal findings DR JOVANI BIRMINGHAM [facility] Start: 11-15-2022 ambulatory Jayla RAMIREZ Facility :[facility] Start: 11-13-2022 End: 11-14-2022 Encounter for general adult medical examination without abnormal findings Jovani Birmingham [facility] Start: 11-13-2022 Periodic preventive med est patient 40-64yrs Jovani Birmingham [facility] Start: 11-13-2022 End: 11-14-[address] JOVANI BIRMINGHAM [facility] Other Start: 10-31-2022 End: 10-31-2022 ambulatory Jovani Birmingham Other [facility] Other Start: 10-31-2022 Office outpatient vi sit 15 minutes Jovani Birmingham [facility] Start: 10-30-2022 End: 10-30-2022 ambulatory Jovani Birmingham Other [facility] Other Start: 10-30-2022 Telephone encounter Jovani Birmingham [facility] Start: 08-18-2022 Encounter for other preprocedural examination DR KENNA HARRISON [facility] Start: 08-16-2022 End: 08-17-[address] KENNA HARRISON Facility:[facility] Start: 08-16-2022 End: 08-17-2022 Encounter for other preprocedural examination DR KENNA HARRISON Facility: Start: 07-14-2022 End: 07-15-[address] JOVANI BIRMINGHAM Facility:[facility] Start: 02-25-2021 Adult health examination Gael reyna Vinnie Other [facility] Other Start: 01-26-2020 End: 01-27-2020 Patient encounter procedure MEME CRAMER Facility:[facility] Procedures Date Procedure Procedure Detail Performing Clinician Start: 11-13-2022 End: 11-13-2022 PSA screening Jovani [place] Other Comment on above: Performed By: #### P SAS #### [facility] [address] [address] [address] Charity Connors Start: 08-06-2014 Coronary artery bypass graft Jayla RAMIREZ Start: 06-26-2014 General examination of patient Jovani [place] Other Start: 08-06-2013 Replacement of aortic valve Jayla RAMIREZ Catheterization of l eft heart Jayla RAMIREZ Depression screening [facility] Other Screening for malign ant neoplasm of prostate Jovani [place] Other Plan of Treatment Date Care Activity Detail Author Start: 01-16-2023 ambulatory [facility] panel - Serum or Plasma [facility] Immunizations Immunization Date Immunization Notes Care Provider Fa cility 05-15-2023 influenza, injectabl e, quadrivalent, preservative free Jovani [place] Other [facility] 05-18-2022 influenza virus vacc ine, unspecified formulation Jayla RAMIREZ [facility] 07-08-2021 SARS-CoV-2 (COVID-19 ) mRNA BNT-162b2 vax Jayla RAMIREZ [facility] 10-11-2020 COVID-19 Vaccine Regis ssen - Documentation Purposes Only Jovani [place] Other [facility] 05-28-2015 tetanus and diphther ia toxoids, adsorbed, preservative free, for adult use (5 Lf of tetanus toxoid and 2 Lf of diphtheria toxoid) Jovani [place] Other [facility] Payers Date Payer Category Payer Private Health Insurance [id number] 1961 [facility] [id number] 1960 Unknown [id number] 1958 Unknown [id number] 1958 Unknown [id number] 1958 Unknown [id number] 1958 Unknown [id number] 1958 Unknown [id number] 1958 Unknown [id number] 1958 Unknown [id number] 1958 Unknown [id number] Medicare Medicare [id number] Unknown [facility] Health Claims [id number] Social History Date Type Detail Facility Sex Assigned At [facility] Start: 12-05-2022 Tobacco smoking status Heavy t obacco smoker (finding) [facility] Tobacco smoking status Never [facility] Start: 1960 Sex Assigned At Male [facility] Functional Status Date Assessment Result Facility 12-05-2022 Functional Status N/A [facility] Clinical Notes 10-31-2022 to 10-16-2023 Note Date & Type Note Facility 10-16-2023 Note ------ Attestation signed by Dinah Blevins MD at 10/27/2023 5:38 PM I agree with the above. I examined and discussed the patient with the resident. Patient has a 5cm ascending aortic aneurysm. He is asymptomatic. We will have him follow up in 6months. ------ Subjective Patient ID: Nori De La Rosa is a 62 y.o. male who presents for New Patient, ascending aortic aneurysm. HPI The patient is a 62-year-old gentleman who regularly follows with Dr. Harrison for his known ascending aortic aneurysm. The patient reports that this aneurysm was first diagnosed in or prior to 2014. In 2015, the patient underwent aortic valve replacement and CABG x 2 for a stenotic bicuspid aortic valve and CAD. The patient reports that he was initially planned to undergo ascending aortic aneurysm repair at that time, but his surgeon found intraoperatively that his aneurysm was smaller than anticipated and elected not to intervene on it at that time. Since then, the patient has undergone regular CTA and echocardiograms to screen for increasing caliber. At this time, the patient's ascending aortic aneurysm measures 5 cm. The patient denies chest or back pain, chest tightness,palpitations, shortness of breath at rest, fatigue, and weakness. Thepatient does report some very mild shortness of breath with exertion, but states that this has been stable for an extended period of time and that he believes it to be related to his ongoing smoking. The patient also denies experiencing symptoms prior to his initial bioprosthetic AVR. The patient does not believe his daughter or brother have undergone screening for bicuspid aortic valve. His sister regularly follows with cardiology. The patient reports familial history of an uncle that of complications related to an ascending aortic aneurysm. The patient continues to smoke daily. He reports that his blood pressure is under good control, systolic 120s to 130s over 80s. We thoroughly discussed the risks and benefits associated with surgical intervention versus watchful waiting with serial imaging as we have done. The patient was also thoroughly counseled on signs and symptoms that could be associated with growth or rupture of the aneurysm, and he was advised to seek emergent evaluation should he experience any of these symptoms. The patient expressed understanding. 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 We will plan to see him at that time as well. Review of Systems Constitutional: Negative. HENT: Negative. Eyes: Negative. Cardiovascular: Negative. Gastrointestinal: Negative. Endocrine: Negative. Genitourinary: Negative. Musculoskeletal: Negative. Skin: Negative. Allergic/Immunologic: Negative. Neurological: Negative. Hematological: Negative. Psychiatric/Behavioral: Negative. Objective Visit Vitals BP 135/82 (BP Location: Left arm, Patient Position: Sitting, BP Cuff Size: Large adult) Pulse 76 Temp 37 ???C (98.6 ???F) (Temporal) Physical Exam Vitals reviewed. Constitutional: General: He is not in acute distress. Appearance: Normal appearance. HENT: Head: Normocephalic and atraumatic. Nose: Nose normal. No congestion. Mouth/Throat: Mouth: Mucous membranes are moist. Eyes: Extraocular Movements: Extraocular movements intact. Conjunctiva/sclera: Conjunctivae normal. Pupils: Pupils are equal, round, and reactive to light. Cardiovascular: Rate and Rhythm: Normal rate and regular rhythm. Heart sounds: Normal heart sounds. No murmur heard. Pulmonary: Effort: Pulmonary effort is normal. Breath sounds: Normal breath sounds. Abdominal: General: There is no distension. Palpations: Abdomen is soft. Tenderness: There is no abdominal tenderness. Musculoskeletal: General: No swelling or deformity. Normal range of motion. Cervical back: Normal range of motion and neck supple. Skin: General: Skin is warm and dry. Neurological: General: No focal deficit present. Mental Status: He is alert and oriented to person, place, and time. Mental status is at baseline. Psychiatric: Mood and Affect: Mood normal. Behavior: Behavior normal. Thought Content: Thought content normal. Assessment/Plan 62-year-old gentleman status post bioprosthetic AVR and CABG x 2 with vein graft in 2014, now with 5 cm ascending aortic aneurysm The risks and benefits associated with surgical intervention as opposed to watchful waiting with serial imaging were discussed at length. The patient was additionally counseled on signs and symptoms that could be associated with growth and/or rupture of his aortic aneurysm. At this time, the patient elects to proceed with watchful waiting. He will undergo repeat CTA of h (more content not included)... [facility] 10-10-2023 Note [facility] Cardiology Clinic Note Chief Complaint: Patient here for 1 year follow up CAD, aortic valve disorder, and thoracic aortic aneurysm. Had echo and CTA chest last month. Routine labs were performed back in November 2022. He has an apt with CT surgery next week at [facility]. Denies chest pain, SOB, palpitations, and lightheadedness/syncope. HPI: Nori De La Rosa is a 62 y.o. male with a history of Coronary artery disease, aortic valve disorder s/p valve replacement and aneurysm of the ascending thoracic aorta. Doing well; no new symptoms Cardiology ROS: Review of Systems Respiratory: Positive for cough. All other systems reviewed and are negative. Past Medical History He has a past medical history of Aneurysm (CMS/HCC), Coronary artery disease, Heart murmur, Heart valve disease, Hyperlipidemia, and Hypertension. Surgical History He has a past surgical history that includes CTA Chest W IV Contrast (09/09/2016); CTA Chest W IV Contrast (01/26/2020); Cardiac catheterization; Aortic valve replacement; and Tonsillectomy. Social History He reports that he has been smoking cigarettes. He has been smoking an average of .25 packs per day. He has never used smokeless tobacco. He reports current alcohol use. No history on file for drug use. Family History Family History Problem Relation Name Age of Onset Coronary artery disease Father Other (CABG) Father Allergies Patient has no known allergies. Medications Current Outpatient Medications: aspirin 81 mg EC tablet, in the morning., Disp: , Rfl: atorvastatin (Lipitor) 80 mg tablet, TAKE 1 TABLET BY MOUTH EVERY DAY, Disp: 90 tablet, Rfl: 3 benazepril (Lotensin) 40 mg tablet, Take 1 tablet (40 mg) by mouth once daily as directed., Disp: 90 tablet, Rfl: 3 clopidogrel (Plavix) 75 mg tablet, TAKE 1 TABLET (75 MG) BY MOUTH IN THE MORNING, Disp: 90 tablet, Rfl: 3 metoprolol tartrate (Lopressor) 25 mg tablet, TAKE 1 TABLET BY MOUTH TWICE A DAY, Disp: 180 tablet, Rfl: 3 Last Recorded Vitals BP 132/80 (BP Location: Right arm, Patient Position: Sitting) Pulse 57 Ht 1.803 m (5' 11 ) Wt 101 kg (222 lb) SpO2 97% BMI 30.96 kg/m??? Physical Examination: GENERAL: alert and oriented x3, [...] is moderately enlarged and measures 4.4 cm. Echocardiogram 09/20/2023: Conclusion: 1. Global left ventricular systolic function is normal with an EF of 60 to 65% 2. Borderline left ventricular hypertrophy 3. Normal right ventricular size and systolic function 4. Bioprosthetic aortic valve with normal Doppler flows and no regurgitation 5. Normal right-sided pressures 6. Normal diastolic function 7. Moderately dilated ascending aorta measuring 4.[address] scan 10/02/2023: Aneurysm of the ascending thoracic aorta measuring 5.0 x 4.9 cm previously it measured 4.7 x 5.0 cm Assessment: 1. Coronary atherosclerosis - S/P SVG-PDA 06/2015 I25.10: Atherosclerotic heart disease of jackson coronary artery without angina pectoris 2. 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 Aneurysm of thoracic aorta - 4.1 x 4.6 cm CTA 07/2014 NEED SERIAL MONITORING - SEES [facility] CT surgery- last visit was 01/26/2020 4.7 cm CTA 02/2021 and 08/2021 I71.2: Thoracic aortic aneurysm, without rupture THORACIC AORTIC ANEURYSM: CARE INSTRUCTIONS 4. Benign essential hypertension - I10: Essential (primary) hypertension HIGH BLOOD PRESSURE: CARE INSTRUCTIONS LEARNING ABOUT HIGH BLOOD PRESSURE Plan: Continue medical therapy in (more content not included)... [facility] 05-15-2023 Evaluation note Encounter Date Diagnosis Assessment [...] CT: 3.4cm - 03/2023 Serial CTA by [facility] - tentatively scheduled for recheck after 6mo but scheduled wrong imaging procedure - control BP - continue ASA and Statin therapy He is to call [facility] to see if CTA abdomen should be scheduled (year anniversary is Jul) May, Pulmonary nodules (ICD-10 - R91.8) CT: 0.5cm - 03/2023 Denies dyspnea, change in sputum production or hemoptysis. Continue LDCT May, S/P aortic valve replacement (ICD-10 - Z95.2) Serial Echo and f/u with [facility] Cardiology Denies CP, tachycardia or syncope [facility] Other 08-15-2023 Evaluation note* Encounter Date Diagnosis [...] (ICD-10 - R91.8) CT: 0.5cm - 03/2023 [facility] Other 08-15-2023 Evaluation note* Encounter Date Diagnosis Assessment Notes Treatment Notes Treatment Clinical Notes Mar, Pulmonary nodules (ICD-10 - R91.8) Mar, Aneurysm of the ascending aorta, without rupture (ICD-10 - I71.21) CTA: 4.7cm - 01/2021, CT: 4.7cm - 08/2021, CT: 4.8cm - 07/2022 [facility] Other 05-10-2023 Evaluation note* Encounter Date Diagnosis [...] to respiratory infections, vascular disease and cancers. [facility] Other 05-02-2023 NoteChief Complaint consultation for screening [...] Recorded SARS-CoV-2 (COVID-19) Ad (more content not included)...[facility]Result Comment: Electronically Signed By: IVON CONTRERAS, Jayla Olmstead\Date and Time Signed: 12/05/22 13:43 [id number] Evaluation note * Encounter Date Diagnosis Assessment [...] (ICD-10 - Z20.822) Recommend testing for COVID [facility] Other 04-10-2023 Evaluation note* Encounter Date Diagnosis [...] colonoscopy in this asymptomatic, low risk patient [facility] Other 03-28-2023 Evaluation note* Encounter Date Diagnosis [...] to respiratory infections, vascular disease and cancers. [facility] Other Evaluation + Plan note No data available for this section [facility] [place] Evaluation noteNo InformationNort [employer] Other Evaluation note* Diagnosis Onset Date Resolution Status Aneurysm of ascending aorta without rupture acute ASHD (arteriosclerotic heart disease) acute Elevated cholesterol acute Nonrheumatic aortic (valve) stenosis acute Obesity acute Primary hypertension acute Pulmonary nodules acute Screening PSA (prostate specific antigen) noneactive Welcome to Medicare preventive visit noneactive [facility] Work Phone: History general Narrative - Reported* Type Description Date Medical History ASHD (arteriosclerotic heart dis ease) Medical History Primary hypertension Medical History Elevated cholesterol Medical History S/P aortic valve replacement Medical History Cigarette nicotine dependence wi thout complication Medical History Aneurysm of ascending aorta with out rupture Medical History Lumbar spondylosis Medical History Nonrheumatic aortic (valve) sten osis Medical History Pulmonary nodules Surgical History [facility] 2013 Surgical History AVR AND CABG 2014 Hospitalization History SEE SURGICAL HX [facility] Other Hispwxp general Narrative - Reported* Type Description Date Medical History ASHD (arteriosclerotic heart dis ease) Medical History Primary hypertension Medical History Elevated cholesterol Medical History S/P aortic valve replacement Medical History Cigarette nicotine dependence wi thout complication Medical History Aneurysm of ascending aorta with out rupture Medical History Lumbar spondylosis Medical History Nonrheumatic aortic (valve) sten osis Medical History Pulmonary nodules Surgical History [facility] 2013 Surgical History AVR AND CABG 2014 Surgical History Colonoscopy w/ polypectomy 12/23 22 Hospitalization History SEE SURGICAL HX [facility] Other Histmgk general Narrative - Reported* Type Description Date Medical History ASHD (arteriosclerotic heart dis ease) Medical History Primary hypertension Medical History Elevated cholesterol Medical History S/P aortic valve replacement Medical History Cigarette nicotine dependence wi thout complication Medical History Aneurysm of ascending aorta with out rupture Medical History Lumbar spondylosis Medical History Nonrheumatic aortic (valve) sten osis Medical History Pulmonary nodules Surgical History [facility] 2013 Surgical History AVR AND CABG 2014 Surgical History Colonoscopy w/ polypectomy, rep eat in 5 years 12/2022 Hospitalization History SEE SURGICAL HX [facility] Other Hospital Discharge instructions No data available for this section [facility] [place] Progress note No data available for this section [facility] [place] Summary Purpose Family History No Family History Records FoundNo Family History Records FoundNo Family History Records FoundNo Family History Records Found Advance Directives Advance Directive Response Recorded Date/ Time Advance Directives No August 29, 2023 2:20pm Reason for Referral Reason *FU 11/20 Screenin g colonoscopy in an asymptomatic, low risk patient Diagnosis 1 Colon cancer screeni ng (Z12.11) Referral Organization [facility] Referring Provider First Name Jovani Referring Provider Last Name Vinnie Referring Provider Specialty Internal Me dicine Referred Organization [facility] Referred Provider Jayla Ramirez Referred Address [address] [place], [place],[address] Referred Provider Specialty Surgery Referral Priority Routine General Notes Annmarie Rahman 04:32:30 PM >received today, attachments made, notes locked, referral faxed Clinical Notes [id number] Chief Complaint and Reason for Visit Chief Complaint Amb Documentation Wellness Reason for Visit Aneurysm of ascendin g aorta without rupture ASHD (arteriosclerotic heart disease) Elevated cholesterol Nonrheumatic aortic (valve) stenosis Obesity Primary hypertension Pulmonary nodules Screening PSA (prostate specific antigen) Welcome to Medicare preventive visit Additional Source Comments (unrecognized sect ion and content) No Status Records FoundNo Status Records FoundNo Status Records FoundNo Status Records Found INFORMATION SOURCE (unrecogn ized section and content) DATE CREATED AUTHOR 02/20/2020 [facility] DATE CREATED AUTHOR AUTHOR'S ORGANIZ ATION 12/19/2022 [facility] DATE CREATED AUTHOR AUTHOR'S ORGANIZ ATION 01/13/2023 [facility] DATE CREATED AUTHOR AUTHOR'S ORGANIZ ATION 10/28/2023 [facility] REASON FOR VISIT (unrecogniz ed section and content) Wants in todaystomach painWe llnessWellnessSinuses- [phone] infectionNo InformationNo InformationNo Information6 month Follow up Patient Care team informatio n (unrecognized section and content) Team Status: Active Member Role Status Dates Jovani Birmingham , DO Primary Care Provider Active Team Status: Active Member Role Status Dates Jovani Birmingham , DO Primary Care Provide r, Attending Provider Active Start: October 02, 2023 Team Status: Inactive Member Role Status Dates Jovani Birmingham , DO Primary Care Provide r, Attending Provider Active Start: November 14, 2023 End: November 14, 2023 Goals (unrecognized section and content) Goals may be documented in a n alternate section FOR RECORDS PERTAINING TO PATIENTS WHO ARE [...] BE BASED ON THE PRIMARY CLINICAL RECORDS. [facility] [employer] [facility]. provides no warranty or guarantee of the accuracy or completeness of information in this document.
--- NOTE | 2024-03-13 08:00 | CT_ITS ---
The [address] [address] Patient Name: NORI SHARPE MRN: [facility]:[id number] date: 1960 Sex: M Assigned Patient Location: LAB Current Patient Location: LAB Accession/Order Number: [id number] Exam Date: 03/13/2024 08:30 Report Date: 03/13/2024 09:40 At the request of: JLUIS FLORENTINO Procedure: CT angio chest CT angio chest, 03/13/2024 8:30 AM EDT INDICATION: Abdominal Aortic Aneurysm I71.20 COMPARISON: Prior CTA of chest dated 10/02/2023 and 03/20/2023 TECHNIQUE: Axial low-dose images of 1 millimeters are obtained from the thoracic outlet with contrast . 3-D MIP images were obtained. Dose reduction techniques were achieved by using automated exposure control and/or adjustment of mA and/or kV according to patient size and/or use of iterative reconstruction technique. FINDINGS: There is no dissection. Moderate atherosclerotic calcification in coronary arteries. At the level of pulmonary artery bifurcation: The ascending aorta measures 4.9 x 4.9 cm The descending aorta measures 2.8 cm. The main pulmonary artery measures 2.9 cm No abnormality of the aortic arch and proximal portion of the common carotid, vertebral and subclavian arteries is noted. A new groundglass opacity measuring 8.6 mm in the right upper lobe is noted (series 5 image 34). There are stable lung nodules measuring up to 5.8 mm in the right upper and left lower lobes (saved as bookmarks). The central tracheobronchial tree is unremarkable. No mediastinal lymph node enlargement by size criteria is noted. No pleural or pericardial effusion is noted. The visualized portions of the solid abdominal organs are unremarkable. Bone: There is no suspicious osteolytic or osteoblastic lesion. There is status post median sternotomy. CT/CT angio chest IMPRESSION: Stable ascending aortic aneurysm. Enlargement of the main pulmonary artery suggesting of pulmonary hypertension. New groundglass nodule measuring 8mm in the right upper lobe. Stable lung nodules measuring up to 5.8 mm since 03/20/2023. Based on Fleischner criteria, follow-up in 6-12 months is recommended to ensure stability. Electronically authenticated by: MELECIO COLLADO Date: 03/13/2024 09:40
[2024-03-13 08:07] LABS: Estimated GFR (African America >60 (>=60); Estimated GFR (Non-African Ame >60 (>=60)
== END 2024-03-13 07:44 | disposition home or self-care (01) ==
LOC: LAB 07:43
PROVIDERS: PCP Internal Medicine; Visit Provider Internal Medicine Interventional Cardiology
DX: Z01.812 Encounter for preprocedural laboratory examination (principal); I71.20 Thoracic aortic aneurysm, without rupture, unspecified
CPT/HCPCS: 36415; 71275; 82565; Q9967

== ENCOUNTER 2024-06-17 08:43 | Outpatient (OUT) | payer MEDICARE, SELFPAY ==
--- NOTE | 2024-06-17 08:45 | CT_ITS ---
The [address] [address] Patient Name: NORI SHARPE MRN: [id number] date: 1960 Sex: M Assigned Patient Location: CT Current Patient Location: Accession/Order Number: [id number] Exam Date: 06/17/2024 08:45 Report Date: 06/19/2024 05:35 At the request of: FERN ANDERSON Procedure: CT chest wo con EXAMINATION: CT chest wo con HISTORY: Ground Glass Opacity COMPARISON: No relevant comparison available. TECHNIQUE: Axial, Coronal, and Sagittal images were created without the administration of IV contrast material. Dose reduction techniques were achieved by using automated exposure control and/or adjustment of mA and/or kV according to patient size and/or use of iterative reconstruction technique. FINDINGS: LUNGS: Stable 5 mm nodule within lateral basilar segment of left lower lobe. PLEURA: No mass, effusion, or pneumothorax. VASCULATURE: No abnormality. TOÑO: No mass or pathologic adenopathy. MEDIASTINUM: No mass or pathologic adenopathy. CARDIAC:Aortic valve replacement. No enlargement, pericardial thickening, or pericardial effusion. Coronary Artery calcifications: Coronary calcifications are moderate. AORTA: Fusiform dilation of ascending thoracic aorta, 4.8 cm in diameter. CHEST WALL: No mass or axillary adenopathy BONES: No bone lesion or fracture. LIMITED ABDOMEN: No suspicious findings. Limited images of the upper abdomen. OTHER: Negative. CT/CT chest wo con IMPRESSION: 1. Lung-RADS 2- Benign Appearance or Behavior. Nodules with a very low likelihood of becoming a clinically active cancer due to size or lack of growth. Follow-up CT Chest in 1 year. 2. Clearing of the new opacities seen within the right upper lobe on prior study. Electronically authenticated by: AMNA BERNSTEIN Date: 06/19/2024 05:35
--- OUTSIDE RECORDS SUMMARY | 2024-06-17 08:56 | XMS_ITS | CCD ---
Author Organization [facility] Care Team Providers Care Train Operator Name Role Phone MEME CRAMER Admitting Unavailable MEME CRAMER Attending Unavailable JOVANI BIRMINGHAM Primary Care Unavailable SELF, REFERRED Referring Unavailable Vinnie, Jovani Unavailable VINNIE, JOVANI Primary Care Physician VINNIE, [...] Srivastava Attending Unavailable ELTAHAWY, KENNA Attending Unavailable BLEVINS, DINAH Referring Unavailable BLEVINS, DINAH Referring Unavailable BLEVINS, DINAH Referring Unavailable BLEVINS, DINAH Attending Unavailable Allergies Allergy Classification Reported Allergen(s) Allergy Type Date of Onset Reaction(s) Facility (1 source) No Known Medication Allergies; Translations: [No Known Medication Allergies] Propensity to adverse reactions (disorder) [facility] Repository (2 sources) patient allergy list reviewed by nurse or physicia Propensity to adverse reactions Comment:Done [employer] Other Medications Current Medications Medication Drug Class(es) Dates Sig (Normalized) Sig (Original) aspirin 81 mg delayed release oral tablet (14 sources) Platelet Aggregation Inhibitor, Nonsteroidal Anti-inflammatory Drug [...] day Active atorvastatin 80 mg oral tablet (14 sources) HMG-CoA Reductase Inhibitor Start: 11-10-2023 take [...] Active benazepril hydrochloride 40 mg oral tablet (14 sources) Angiotensin Converting Enzyme Inhibitor Start: 11-10-2023 take 40 mg by mouth once daily Benazepril Active 40 MG PO Daily November 10, 2023 12:00am Start: 11-28-2022 take 1 tablet by isabel th once daily benazepril 40 mg oral tablet 40 mg = 1 tab(s), Oral, Daily, Oral, Refills(s) 0 Start Date: 11/28/22 Status: Ordered clopidogrel 75 mg oral tablet (14 sources) P2Y12 Platelet Inhibitor Start: 11-10-2023 take 75 mg by mouth once daily Clopidogrel Active 75 MG PO Daily November 10, 2023 12:00am Start: 11-28-2022 take 1 tablet by isabel th once daily clopidogrel 75 mg Tab 75 mg = 1 tab(s), Oral, Daily, Oral, Refills(s) 0 Start Date: 11/28/22 Status: Ordered metoprolol tartrate 25 mg oral tablet (14 sources) beta-Adrenergic Bg Start: 11-10-2023 take 25 [...] Date Documented Da te Episodic/Chronic Abdominal pain (14 sources) Right lower quadrant pain; Translations: [Right lower quadrant pain] Episodic Aortic; peripheral; and visceral artery aneurysms (11 sources) Aneurysm of ascending aorta; Translations: [Thoracic aortic aneurysm without rupture] Onset: 08-18-2022 11-28-2022 Chronic Coronary atherosclerosis and other heart disease (20 sources) Coronary arteriosclerosis; Translations: [Atherosclerotic heart disease of [place] coronary artery without angina pectoris] Onset: 03-06-2016 Chronic Disorders of lipid metabolism (20 sources) Hypercholesterolemia ; Translations: [Pure hypercholesterolemia , unspecified] Onset: 08-06-2014 Chronic Essential hypertension (20 sources) Essential hypertension; Translations: [Essential (primary) hypertension] Chronic Genitourinary symptoms and ill-defined conditions (14 sources) Delay when starting to pass urine; Translations: [Hesitancy of micturition] Episodic Heart valve disorders (20 sources) History of aortic valve replacement; Translations: [Presence of prosthetic heart valve] Onset: 08-18-2022 Chronic Other congenital anomalies (2 sources) Congenital spondylolysis of lumbosacral region; Translations: [Congenital spondylolysis, lumbosacral region] Onset: 03-06-2016 Chronic Other lower respiratory disease (14 sources) Multiple nodules of lung; Translations: [Other nonspecific abnormal finding of lung field] 11-28-2022 Episodic Other lower respiratory disease (11 sources) Other nonspecific abnormal finding of lung [...] Chronic Other nutritional; endocrine; and metabolic disorders (5 sources) Obesity; Translations: [Obesity, unspecified] Resolved: 02-25-2021 11-14-2023 Chronic Other nutritional; endocrine; and metabolic disorders (2 sources) Obesity, unspecified; Translations: [Obesity, unspecified] 11-14-2023 Chronic Other screening for suspected conditions (not mental disorders or infectious disease) (5 sources) Encounter for screening for malignant neoplasm of colon; Translations: [Screening for malignant neoplasm of colon done] Onset: 11-19-2022 Episodic Other upper respiratory infections (2 sources) Acute maxillary sinusitis, unspecified Episodic Residual codes; unclassified (1 source) Obstructive sleep apnea syndrome; Translations: [Obstructive sleep apnea (adult) (pediatric)] 03-14-2024 Chronic Spondylosis; intervertebral disc disorders; other back problems (16 sources) Lumbar spondylosis; Translations: [Spondylosis without myelopathy [...] Test Name Value Interpretation Reference Range Facility 36on 04-16-2024 36 LVM to schedule 6 month follow up appointment with Dr. Blevins [facility] Estimated glomerular filtrat ion rate (GFR) non- Americanon 03-13-2024 GFR/1.73 sq M.predicted among non-blacks MDRD (S/P/Bld) [Vol rate/Area] mL/min/{1.73_m2} >=60 [facility] Laboratory - Chemistry and C hemistry - challengeon 03-13-2024 Creatinine [Mass/Vol] 1.01 mg/dL 0.70-1.30 [facility] GFR/1.73 sq M.predicted MDRD (S/P/Bld) [Vol rate/Area] mL/min/{1.73_m2} >=60 [facility] Office Visiton 10-16-2023 Follow-up visit [id number] Nori De La Rosa 1960 M Date Provider Department Center 10/16/2023 87845-NFNOADINAH BLEVINS HVCVASENDO [facility] Family History Problem Relation Age of Onset Coronary artery disease Father Other Father Family Status - Relation Status Age at Father Level of Service:48731 [facility] OFFICE/OP CONSLTJ NEW/EST PT LOW MDM 30 MINUTES Reason for Visit and Comments: New Patient [632] [facility] Office Visiton 10-10-2023 Follow-up visit [id number] Nori De La Rosa E 1960 M Date Provider Department Center 10/10/2023 Irwin-KENNA HARRISON CARD Simba Mayo Family History Problem Relation Age of Onset Coronary artery disease Father Other Father Family Status - Relation Status Age at Father Level of Service:69371 [facility] OFFICE/OUTPATIENT ESTABLISHED MOD MDM [address] [facility] Estimated glomerular filtrat ion rate (GFR) non- Americanon 10-02-2023 GFR/1.73 sq M.predicted among non-blacks MDRD (S/P/Bld) [Vol rate/Area] mL/min/{1.73_m2} >=60 [facility] Laboratory - Chemistry and C hemistry - challengeon 10-02-2023 Creatinine [Mass/Vol] 1.07 mg/dL 0.70-1.30 [facility] GFR/1.73 sq M.predicted MDRD (S/P/Bld) [Vol rate/Area] mL/min/{1.73_m2} >=60 [facility] Pathology Noteon 01-04-2023 Pathology Note [id number]#1 .00CD:127 [facility] Outside Colonoscopyon 2022 Outside Colonoscopy [id number]#1 .00CD:127 [facility] Pre-Certification Formon Pre-Certification Form [id number]# 1.00CD:127 [facility] Consent for Procedure/Surger yon 12-07-2022 Consent for Procedure/Surgery [id number]#1 .00CD:127 [facility] Facesheeton 12-07-2022 Facesheet [id number]#1 .00CD:127 [facility] Physician Referralon 023 Physician Referral [id number]#1 .00CD:127 Normal [facility] Physician Referral [id number]#1 .00CD:127 Normal [facility] Ambulatory Visit Summaryon 0 12-05-2022 Ambulatory [...] colon Thoracic aortic aneurysm without rupture Normal [facility] Physician Referralon 023 Physician Referral [id number] .00CD:127 Normal [facility] CBC AUTO DIFFon 11-13-2022 BASO # 0.0 103/ul Normal 0.0-0.1 [facility] Comment on above: Performed By: #### C BC #### [facility] [address] [place] [address] Dr. Charity Connors Basophils/100 WBC (Bld) 0.4 % Normal 0.2-2.0 [facility] Comment on above: Performed By: #### C BC #### [facility] [address] [place] [address] Dr. Charity Connors EO # 0.1 103/ul Normal 0.0-0.7 [facility] Comment on above: Performed By: #### C BC #### [facility] [address] [place] [address] Dr. Charity Connors Eosinophils/100 WBC (Bld) 1.2 % Normal 0.9-7.0 [facility] Comment on above: Performed By: #### C BC #### [facility] [address] [place] [address] Dr. Charity Connors Erythrocyte distribution width (RBC) [Ratio] 12.8 % Normal 11.0-15.0 [facility] Comment on above: Performed By: #### C BC #### [facility] [address] [place] [address] Dr. Charity Connors Hematocrit (Bld) [Volume fraction] 42.2 % Normal 42.0-54.0 [facility] Comment on above: Performed By: #### C BC #### [facility] [address] [place] [address] Dr. Charity Connors Hemoglobin (Bld) [Mass/Vol] 14.4 g/dL Normal 14.0-18.0 [facility] Comment on above: Performed By: #### C BC #### [facility] [address] [place] [address] Dr. Charity Connors IG # 0.02 10e3/ul Normal 0.00-0.03 [facility] Comment on above: Performed By: #### C BC #### [facility] [address] [place] [address] Dr. Charity Connors IG % 0.3 % Normal 0.0-0.5 [facility] Comment on above: Performed By: #### C BC #### [facility] [address] [place] [address] Dr. Charity Connors LYMPH # 2.2 103/ul Normal 1.2-3.8 [facility] Comment on above: Performed By: #### C BC #### [facility] [address] [place] [address] Dr. Charity Connors Lymphocytes/100 WBC (Bld) 30.3 % Normal 20.5-60.0 [facility] Comment on above: Performed By: #### C BC #### [facility] [address] [place] [address] Dr. Charity Connors MANUAL DIFF REQ NO Normal [facility] Comment on above: Performed By: #### C BC #### [facility] [address] [place] [address] Dr. Charity Connors MCH (RBC) [Entitic mass] 31.0 pg Normal 25.9-34.0 [facility] Comment on above: Performed By: #### C BC #### [facility] [address] [place] [address] Dr. Charity Connors MCHC (RBC) [Mass/Vol] 34.1 g/dL Normal 29.9-35.2 [facility] Comment on above: Performed By: #### C BC #### [facility] [address] [place] [address] Dr. Charity Connors MCV (RBC) [Entitic vol] 90.9 fL Normal 80.0-94.0 [facility] Comment on above: Performed By: #### C BC #### [facility] [address] [place] [address] Dr. Charity Connors MONO # 0.7 103/ul Normal 0.3-0.8 [facility] Comment on above: Performed By: #### C BC #### [facility] [address] [place] [address] Dr. Charity Connors Monocytes/100 WBC (Bld) 9.1 % Normal 1.7-12.0 [facility] Comment on above: Performed By: #### C BC #### [facility] [address] [address] [address] Charity Connors NEUT # 4.3 103/ul Normal 1.4-6.5 [facility] Comment on above: Performed By: #### C BC #### [facility] [address] [address] [address] Charity Connors Neutrophils/100 WBC (Bld) 58.7 % Normal 43.0-75.0 [facility] Comment on above: Performed By: #### C BC #### [facility] [address] [place] [address] Dr. Charity Connors Platelet mean volume (Bld) [Entitic vol] 9.3 fL Critically low 9.5-13.5 [facility] Comment on above: Performed By: #### C BC #### [facility] [address] [address] [address] Charity Connors PLT 450 103/ul Normal 150-450 [facility] Comment on above: Performed By: #### C BC #### [facility] [address] [address] [address] Charity Connors RBC 4.64 106/ul Critically low 4.70-6.10 [facility] Comment on above: Performed By: #### C BC #### [facility] [address] [address] [address] Charity Connors WBC 7.3 103/ul Normal 4.0-11.0 [facility] Comment on above: Performed By: #### C BC #### [facility] [address] [address] [address] Charity Connors Complete Blood Count and Dif cyndie 11-13-2022 Anisocytosis Ql (Bld) [employer] Other Basophilic stippling LM Ql (Bld) [employer] Other RBC morphology finding Nom (Bld) [employer] Other Complete Blood Count and Diff [employer] Other Comprehensive Metabolic Pane cary 11-13-2022 Albumin [Mass/Vol] 3.908924 g/dL 3.4-5.0 g/dL [facility] [employer] Other Calcium [Mass/Vol] 9.1515304 mg/dL 8.5-10.1 mg/ dL [employer] Other CO2 [Moles/Vol] 29.74545879 mmol/L 21.0-3 2.0 mmol/L [employer] Other Creatinine [Mass/Vol] 0.32599303 mg/dL 0.70-1.30 mg/dL [employer] Other Potassium [Moles/Vol] 4.71798197 mmol/L 3.5-5.1 mmol/L [employer] Other Protein [Mass/Vol] 8.758839 g/dL Critically high 6.4-8.2 g /dL [employer] Other Urea nitrogen [Mass/Vol] 12.4689071 mg/dL 7.0-18.0 mg/dL [employer] Other Comprehensive Metabolic Panel see note [employer] Other Comprehensive Metabolic Panel 138 mmol/L 136-145 mmol/L [employer] Other Comprehensive Metabolic Panel 110 mg/dL Critically high 74-106 mg/dL [employer] Other Comprehensive Metabolic Panel >60 mL/min/1.73m2 >=60 mL/min/1.73m2 [employer] Other Comprehensive Metabolic Panel 0.4 mg/dL 0.2-1.0 mg/dL [employer] Other Comprehensive Metabolic Panel 4.9 g/dL [employer] Other Albumin/Globulin [Mass ratio] 0.7 {ratio} Normal [employer] Other Comment on above: Performed By: #### C MP, LIPID #### [facility] [address] [address] [address] Charity Connors ALP [Catalytic activity/Vol] 95 U/L Normal 46-116 [employer] Other Comment on above: Performed By: #### C MP, LIPID #### [facility] [address] [place] [address] Dr. Charity Connors ALT [Catalytic activity/Vol] 62 U/L Normal 16-63 [employer] Other Comment on above: Performed By: #### C MP, LIPID #### [facility] [address] [place] [address] Dr. Charity Connors Anion gap [Moles/Vol] 11.6 mmol/L Normal [employer] Other Comment on above: Performed By: #### C MP, LIPID #### [facility] [address] [place] [address] Dr. Charity Connors AST [Catalytic activity/Vol] 22 U/L Normal 15-37 [employer] Other Comment on above: Performed By: #### C MP, LIPID #### [facility] [address] [place] [address] Dr. Charity Connors Chloride [Moles/Vol] 102 mmol/L Normal 98-107 [employer] Other Comment on above: Performed By: #### C MP, LIPID #### [facility] [address] [place] [address] Dr. Charity Connors Urea nitrogen/Creatinin e [Mass ratio] 13.8 mg/mg Normal [employer] Other Comment on above: Performed By: #### C MP, LIPID #### [facility] [address] [place] [address] Dr. Charity Connors LIPID PROFILEon 11-13-2022 CHOL-HDL RATIO NORM SEE BELOW Normal [facility] Comment on above: Result Comment: 3.3 - 4.4 LOW RISK 4.4 - 7.1 AVERAGE RISK 7.1 - 11.0 MODERATE RISK >11.0 HIGH RISK Performed By: #### C MP, LIPID #### [facility] [address] [place] [address] Dr. Charity Connors Cholesterol in LDL [Mass/Vol] 38.0 mg/dL Normal [facility] Comment on above: Performed By: #### C MP, LIPID #### [facility] [id number] Charity Connors HDL NORMAL > or = 60 mg/dl - LO W CARDIOVASCULAR RISK <40 mg/dl - HIGH CARDIOVASCULAR RISK Normal [facility] Comment on above: Performed By: #### C MP, LIPID #### [facility] [address] [place] [address] Dr. Charity Connors LDL CALC NORMAL SEE BELOW Normal [facility] Comment on above: Result Comment: <100 mg/dl OPTIMAL 100 - 129 mg/dl NEAR OR ABOVE OPTIMAL 130 - 159 mg/dl BORDERLINE HIGH 160 - 189 mg/dl HIGH >190 mg/dl VERY HIGH Performed By: #### C MP, LIPID #### [facility] [address] [place] [address] Dr. Charity Connors VLDL CALC 40.0 mg/dL Normal [facility] Comment on above: Performed By: #### C MP, LIPID #### [facility] [address] [place] [address] Dr. Charity Connors Lipid Panelon 11-13-2022 Lipid Panel > or = 60 mg/dl - LO W CARDIOVASCULAR RISK <40 mg/dl - HIGH CARDIOVASCULAR RISK [employer] Other Lipid Panel SEE BELOW [employer] Other Lipid Panel 38.0 mg/dL [employer] Other Lipid Panel 40.0 mg/dL [employer] Other Cholesterol [Mass/Vol] 107 mg/dL Normal <=200 [employer] Other Comment on above: Performed By: #### C MP, LIPID #### [facility] [address] [address] [address] Charity Connors Cholesterol in HDL [Mass/Vol] 29 mg/dL Critically low 40-60 [employer] Other Comment on above: Performed By: #### C MP, LIPID #### [facility] [address] [place] [address] Dr. Charity Connors Cholesterol.total/ Cholesterol in HDL [Mass ratio] 3.7 {ratio} Normal [employer] Other Comment on above: Performed By: #### C MP, LIPID #### [facility] [address] [place] [address] Dr. Charity Connors Triglyceride [Mass/Vol] 200 mg/dL Critically high <=150 [employer] Other Comment on above: Performed By: #### C MP, LIPID #### [facility] [address] [place] [address] Dr. Charity Connors PROF 14(COMP METB)on 023 Albumin [Mass/Vol] 3.6 g/dL Normal 3.4-5.0 [facility] Comment on above: Performed By: #### C MP, LIPID #### [facility] [address] [place] [address] Dr. Charity Connors Bilirubin [Mass/Vol] 0.4 mg/dL Normal 0.2-1.0 [facility] Comment on above: Performed By: #### C MP, LIPID #### [facility] [address] [place] [address] Dr. Charity Connors Calcium [Mass/Vol] 9.8 mg/dL Normal 8.5-10.1 [facility] Comment on above: Performed By: #### C MP, LIPID #### [facility] [address] [place] [address] Dr. Charity Connors CO2 [Moles/Vol] 29.2 mmol/L Normal 21.0-32.0 [facility] Comment on above: Performed By: #### C MP, LIPID #### [facility] [address] [place] [address] Dr. Charity Connors Creatinine [Mass/Vol] 0.87 mg/dL Normal 0.70-1.30 [facility] Comment on above: Performed By: #### C MP, LIPID #### [facility] [address] [place] [address] Dr. Charity Connors EGFR-AF RWANDAN >60 Normal >=60 [facility] Comment on above: Performed By: #### C MP, LIPID #### [facility] [address] [place] [address] Dr. Charity Connors EGFR-NON AF RWANDAN >60 Normal >=60 [facility] Comment on above: Performed By: #### C MP, LIPID #### [facility] [address] [place] [address] Dr. Charity Connors Globulin (S) [Mass/Vol] 4.9 g/dL Normal [facility] Comment on above: Performed By: #### C MP, LIPID #### [facility] [address] [place] [address] Dr. Chraity Connors Glucose [Mass/Vol] 110 mg/dL Critically high 74-106 [facility] Comment on above: Performed By: #### C MP, LIPID #### [facility] [address] [place] [address] Dr. Charity Connors Potassium [Moles/Vol] 4.8 mmol/L Normal 3.5-5.1 [facility] Comment on above: Performed By: #### C MP, LIPID #### [facility] [address] [place] [address] Dr. Charity Connors Protein [Mass/Vol] 8.5 g/dL Critically high 6.4-8.2 [facility] Comment on above: Performed By: #### C MP, LIPID #### [facility] [address] [place] [address] Dr. Charity Connors Sodium [Moles/Vol] 138 mmol/L Normal 136-145 [facility] Comment on above: Performed By: #### C MP, LIPID #### [facility] [address] [place] [address] Dr. Charity Connors Urea nitrogen [Mass/Vol] 12.0 mg/dL Normal 7.0-18.0 [facility] Comment on above: Performed By: #### C MP, LIPID #### [facility] [address] [place] [address] Dr. Charity Connors CREATININEon 08-16-2022 Creatinine [Mass/Vol] 0.96 mg/dL Normal 0.70-1.30 [facility] Comment on above: Performed By: #### C CJ #### [facility] [address] [place] [address] Dr. Charity Connors EGFR-AF RWANDAN >60 Normal >=60 [facility] Comment on above: Performed By: #### C JC #### [facility] [address] [place] [address] Dr. Charity Connors EGFR-NON AF RWANDAN >60 Normal >=60 [facility] Comment on above: Performed By: #### C JC #### [facility] [address] [place] [address] Dr. Charity Connors CTA CHEST WO W [...] by: AMNA BERNSTEIN Date: 2022-08-16 10:09 Normal [facility] ECHOCARDIO M/2D COMPLETEon 0 08-16-2022 ECHOCARDIO M/2D COMPLETE Patient: NORI DE LA ROSA Exam Date: 08/16/2022 : 1960 Gender:M Ordering : DR KENNA HARRISON M.D. Admission #: [id number] Family : DR JOVANI BIRMINGHAM D.ONoemi Order #: [id number] CLICK HERE TO VIEW EXAM ECHOCARDIOGRAM REPORT [...] Kenna Harrison M.D. on 08/17/2022 at 13:[address] [facility] [address] CHEST WO CONon 12-09-2022 CT CHEST WO CON EXAMINATION: CT CHES [...] by: JOSE PORTER Date: 2022-07-14 12:44 Normal [facility] CTA CHESTon 01-26-[address] [facility] Department of Radiology [address] [place] [id number] Patient Name: NORI DE LA ROSA : 1960 Sex: M Age: Race: White Pt. Location: Patient Status: O Ordered Date: 12/09/2019 11:30:00 AM Completed Date: 01/26/2020 09:08 AM Requesting Provider: MEME CRAMER Attending Provider: MEME CRAMER Report Copy To: JOVANI BIRMINGHAM Signs & Symptoms: I71.2 Thoracic aortic aneurysm, without rupture I10 History: Blanket Patient [place] labs near his home per clinic. [id number] no pc required per [employer] ref# [id number] 01/11 Comments: Exam: CTA CHEST CTA CHEST [...] lobe. Electronically signed: Kat Joiner. Transcribed by: [email or web address], User Resident: Electronically Signed by: KAT JOINER @ 01/26/2020 09:[address] [facility] Vital Signs Date Time Vital Sign Value Performing Clinician Facility 05-15-2024 09:09-0400 Body mass index (BMI) [Ratio] 32.5 kg/m2 [facility] 05-15-2024 09:09-0400 Diastolic blood pressure 89 mm[Hg] [facility] 05-15-2024 09:09-0400 Systolic blood pressure 139 mm[Hg] [facility] 05-15-2024 08:34-0400 Body height 172.[address] [facility] 05-15-2024 08:34-0400 Body weight 97.[address] [facility] 05-15-2024 08:34-0400 Heart rate 62 /min [facility] 05-15-2024 08:34-0400 Respiratory rate 12 /min [facility] 03-14-2024 14:46-0400 Body height 172.[address] [facility] 03-14-2024 14:46-0400 Body mass index (BMI) [Ratio] 32.2 kg/m2 [facility] 03-14-2024 14:46-0400 Body weight 96.[address] [facility] 03-14-2024 14:46-0400 Diastolic blood pressure 75 mm[Hg] [facility] 03-14-2024 14:46-0400 Heart rate 77 /min [facility] 03-14-2024 14:46-0400 Systolic blood pressure 134 mm[Hg] [facility] 11-14-2023 08:40-0400 Body height 172.[address] [facility] 11-14-2023 08:40-0400 Body mass index (BMI) [Ratio] 32.9 kg/m2 [facility] 11-14-2023 08:40-0400 Body weight 98.[address] [facility] 11-14-2023 08:40-0400 Diastolic blood pressure 83 mm[Hg] [facility] 11-14-2023 08:40-0400 Heart rate 66 /min [facility] 11-14-2023 08:40-0400 Respiratory rate 12 /min [facility] 11-14-2023 08:40-0400 Systolic blood pressure 151 mm[Hg] [facility] 05-15-2023 08:30-0400 Body height 172.72 cm Jovani Ball Other [employer] Other 05-15-2023 08:30-0400 Body mass index (BMI) [Ratio] 31.68 kg/m2 Jovani Ball Other [employer] Other 05-15-2023 08:30-0400 Body weight 94.53 kg Jovani Ball Other [employer] Other 05-15-2023 08:30-0400 Diastolic blood pressure 80 mm[Hg] Jovani Ball Other [employer] Other 05-15-2023 08:30-0400 Respiratory rate 12 /min Jovani Ball Other [employer] Other 05-15-2023 08:30-0400 Systolic blood pressure 124 mm[Hg] Jovani Ball Other [employer] Other 12-13-2022 16:30-0400 Body height 172.72 cm Jovani Ball Other [employer] Other 12-13-2022 16:30-0400 Body mass index (BMI) [Ratio] 32.26 kg/m2 Jovani Ball Other [employer] Other 12-13-2022 16:30-0400 Body weight 96.25 kg Jovani Ball Other [employer] Other 12-13-2022 16:30-0400 Diastolic blood pressure 79 mm[Hg] Jovani Ball Other [employer] Other 12-13-2022 16:30-0400 Respiratory rate 12 /min Jovani Ball Other [employer] Other 12-13-2022 16:30-0400 Systolic blood pressure 148 mm[Hg] Jovani Ball Other [employer] Other 12-05-2022 13:10-0400 Blood Pressure Location Jayla NILL [facility] 12-05-2022 13:10-0400 Diastolic blood pressure 84 mm[Hg] Jayla NILL [facility] 12-05-2022 13:10-0400 Heart rate 76 /min Jayla NILL [facility] [place] 12-05-2022 13:10-0400 Respiratory rate 16 /min Jayla NILL [facility] [place] 12-05-2022 13:10-0400 Systolic blood pressure 144 mm[Hg] Jayla NILL [facility] [place] 11-13-2022 10:30-0400 Body height 172.72 cm Jovani Ball Other [employer] Other 11-13-2022 10:30-0400 Body mass index (BMI) [Ratio] 32.26 kg/m2 Jovani Ball Other [employer] Other 11-13-2022 10:30-0400 Body weight 96.25 kg Jovani Ball Other [employer] Other 11-13-2022 10:30-0400 Diastolic blood pressure 74 mm[Hg] Jovani Ball Other [employer] Other 11-13-2022 10:30-0400 Respiratory rate 12 /min Jovani Ball Other [employer] Other 11-13-2022 10:30-0400 Systolic blood pressure 145 mm[Hg] Jovani Ball Other [employer] Other 10-31-2022 15:45-0400 Body height 172.72 cm Jovani Ball Other [employer] Other 10-31-2022 15:45-0400 Body mass index (BMI) [Ratio] 33.33 kg/m2 Jovani Ball Other [employer] Other 10-31-2022 15:45-0400 Body weight 99.43 kg Jovani Ball Other [employer] Other 10-31-2022 15:45-0400 Diastolic blood pressure 70 mm[Hg] Jovani Ball Other [employer] Other 10-31-2022 15:45-0400 Respiratory rate 12 /min Jovani Ball Other [employer] Other 10-31-2022 15:45-0400 Systolic blood pressure 122 mm[Hg] Jovani Ball Other [employer] Other Encounters Encounter Date Encounter Type Care Provider Facility Start: 05-15-2024 End: 05-15-2024 ambulatory [facility] Work Phone: Start: 05-15-2024 End: 05-15-2024 Patient encounter procedure [facility] Work Phone: Start: 04-16-2024 End: 04-16-2024 ambulatory [facility] Start: 03-14-2024 End: 03-14-2024 ambulatory [facility] Work Phone: Start: 03-14-2024 End: 03-14-2024 Patient encounter procedure [facility] [employer] [facility] Work Phone: Start: 03-13-2024 Non-patient / Non-visit [facility] Work Phone: Start: 11-14-2023 End: 11-14-2023 ambulatory [facility] Work Phone: Start: 11-14-2023 End: 11-14-2023 Encounter for general adult medical examination without abnormal findings [facility] Start: 11-14-2023 End: 11-14-2023 Patient encounter procedure [facility] Physician [facility] Work Phone: Start: 10-16-2023 ambulatory [facility] Start: 10-11-2023 End: 10-11-2023 ambulatory [facility] Start: 10-10-2023 End: 10-10-2023 ambulatory [facility] Start: 10-10-2023 End: 10-10-2023 ambulatory [facility] Start: 10-02-2023 Non-patient / Non-visit [facility] Physician [facility] Work Phone: Start: 10-02-2023 Non-patient / Non-visit [facility] Work Phone: Start: 05-15-2023 End: 05-15-2023 ambulatory Jovani Birmingham Other [employer] Other Start: 05-15-2023 Office outpatient vi sit 25 minutes Jovani Birmingham [facility] Start: 03-20-2023 End: 03-20-2023 ambulatory Jovani Birmingham Other [employer] Other Start: 03-20-2023 Telephone encounter Jovani APARICIO [facility] Start: 01-04-2023 End: 01-04-2023 ambulatory Jovani Birmingham Other [employer] Other Start: 01-04-2023 Telephone encounter Jovani APARICIO [facility] Start: 12-27-2022 End: 12-28-2022 ambulatory JAYLA RAMIREZ Facility:[facility] Start: 12-13-2022 End: 12-13-2022 ambulatory Jovani Birmingham Other [employer] Other Start: 12-13-2022 Office outpatient vi sit 15 minutes Jovani Birmingham [facility] Start: 12-05-2022 End: 12-06-2022 ambulatory Jayla RAMIREZ [facility] Start: 12-05-2022 End: 12-05-2022 Patient encounter procedure Jayla RAMIREZ [facility] [place] Start: 12-04-2022 End: 12-04-2022 ambulatory Jovani Birmingham Other [employer] Other Start: 12-04-2022 Office outpatient vi sit 15 minutes Jovani Birmingham [facility] Start: 11-19-2022 Encounter for genera l adult medical examination without abnormal findings DR JOVANI BIRMINGHAM [facility] Start: 11-15-2022 ambulatory Jayla RAMIREZ Facility [facility] Start: 11-13-2022 End: 11-14-2022 Encounter for general adult medical examination without abnormal findings Jovani Birmingham [facility] Start: 11-13-2022 Periodic preventive med est patient 40-64yrs Jovani Birmingham [facility] Start: 11-13-2022 End: 11-14-[address] JOVANI BIRMINGHAM [employer] Other Start: 10-31-2022 End: 10-31-2022 ambulatory Jovani Birmingham Other [employer] Other Start: 10-31-2022 Office outpatient vi sit 15 minutes Jovani Birmingham [facility] Start: 10-30-2022 End: 10-30-2022 ambulatory Jovani Birmingham Other [employer] Other Start: 10-30-2022 Telephone encounter Jovani Birmingham [facility] Start: 08-18-2022 Encounter for other preprocedural examination DR KENNA HARRISON [facility] Start: 08-16-2022 End: 08-17-[address] KENNA HARRISON Facility:[facility] Start: 08-16-2022 End: 08-17-2022 Encounter for other preprocedural examination DR KENNA HARRISON Facility:[facility] Start: 07-14-2022 End: 07-15-[address] JOVANI BIRMINGHAM Facility:[facility] Start: 02-25-2021 Adult health examination Gael Birmingham Other [employer] Other Start: 01-26-2020 End: 01-27-2020 Patient encounter procedure MEME BELA Facility:[facility] Procedures Date Procedure Procedure Detail Performing Clinician Start: 11-13-2022 End: 11-13-2022 PSA screening Jovani Birmingham Other Comment on above: Performed By: #### P [facility] #### [facility] [address] [place] [address] Dr. Charity Connors Start: 08-06-2014 Coronary artery bypass graft Jayla RAMIREZ Start: 06-26-2014 General examination of patient Jovani Birmingham Other Start: 08-06-2013 Replacement of aortic valve Jayla RAMIREZ Catheterization of l eft heart Jayla COOKL Depression screening Xavier Birmingham Other Screening for malign ant neoplasm of prostate Jovani Birmingham Other Plan of Treatment Date Care Activity Detail Author Start: 01-16-2023 ambulatory Ambulatory Facility:[facility] metabo lic 2000 panel - Serum or Plasma [facility] CT Chest WO contrast [facility] Immunizations Immunization Date Immunization Notes Care Provider Fa cility 05-15-2024 influenza, high dose seasonal, preservative-free [facility] 05-15-2023 influenza, injectabl e, quadrivalent, preservative free Jovani Birmingham Other [facility] 05-18-2022 influenza virus vacc ine, unspecified formulation Jayla RAMIREZ [facility] 07-08-2021 SARS-CoV-2 (COVID-19 ) mRNA BNT-162b2 madelinex Jayla RAMIREZ [facility] [place] 10-11-2020 COVID-19 Vaccine Regis ssen - Documentation Purposes Only Jovani Birmingham Other [facility] [place] 05-28-2015 tetanus and diphther ia toxoids, adsorbed, preservative free, for adult use (5 Lf of tetanus toxoid and 2 Lf of diphtheria toxoid) Jovani Birmingham Other [facility] Payers Date Payer Category Payer Private Health Insurance [id number] 1961 [facility] [id number] 1960 Unknown [id number] 1960 Unknown [id number] 1960 Unknown [id number] 1958 Unknown [id number] 1958 Unknown [id number] 1958 Unknown [id number] 1958 Unknown [id number] 1960 Unknown [id number] 1960 Unknown [id number] Medicare Medicare [id number] Unknown [facility] Health Claims [id number] Social History Date Type Detail Facility Sex Assigned At [facility] Start: 12-05-2022 Tobacco smoking status Heavy t obacco smoker (finding) [facility] Tobacco smoking status Never [facility] Start: 1960 Sex Assigned At Male 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 We will plan to see him at [...] CTA of h (more content not included)... [facility] 10-10-2023 Note [facility] Clinic Note Chief Complaint: Patient here for 1 year follow up CAD, aortic valve disorder, and thoracic aortic aneurysm. Had echo and CTA chest last month. Routine labs were performed back in November 2022. He has an apt with CT surgery next week at [facility]. Denies chest pain, SOB, palpitations, and [...] SVG-PDA 06/2015 I25.10: Atherosclerotic heart disease of [place] coronary artery without angina pectoris 2. 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 Aneurysm of thoracic aorta - 4.1 x 4.6 cm CTA 07/2014 NEED SERIAL MONITORING - SEES [facility] CT surgery- last visit was 01/26/2020 4.7 cm CTA 02/2021 and 08/2021 I71.2: Thoracic aortic aneurysm, without rupture THORACIC AORTIC ANEURYSM: CARE INSTRUCTIONS 4. Benign essential hypertension - I10: Essential (primary) hypertension HIGH BLOOD PRESSURE: CARE INSTRUCTIONS LEARNING ABOUT HIGH BLOOD PRESSURE Plan: Continue medical therapy in (more content not included)... [facility] 05-15-2023 Evaluation note Encounter Date Diagnosis [...] CT: 3.4cm - 03/2023 Serial CTA by [facility] - tentatively scheduled for recheck after 6mo but scheduled wrong imaging procedure - control BP - continue ASA and Statin therapy He is to call [facility] to see if CTA abdomen should be scheduled (year anniversary is Jul) May, Pulmonary nodules (ICD-10 - R91.8) CT: 0.5cm - 03/2023 Denies dyspnea, change in sputum production or hemoptysis. Continue LDCT May, S/P aortic valve replacement (ICD-10 - Z95.2) Serial Echo and f/u with [facility] Cardiology Denies CP, tachycardia or syncope [employer] Other 08-15-2023 Evaluation note* Encounter Date Diagnosis [...] (ICD-10 - R91.8) CT: 0.5cm - 03/2023 [employer] Other 08-15-2023 Evaluation note* Encounter Date Diagnosis Assessment Notes Treatment Notes Treatment Clinical Notes Mar, Pulmonary nodules (ICD-10 - R91.8) Mar, Aneurysm of the ascending aorta, without rupture (ICD-10 - I71.21) CTA: 4.7cm - 01/2021, CT: 4.7cm - 08/2021, CT: 4.8cm - 07/2022 [employer] Other 05-10-2023 Evaluation note* Encounter Date Diagnosis [...] to respiratory infections, vascular disease and cancers. [employer] Other 05-02-2023 NoteChief Complaint consultation for screening colonoscopy HPI Staff 62 year old male presents on [...] Recorded SARS-CoV-2 (COVID-19) Ad (more content not included)...[facility] Comment: Electronically Signed By: IVON CONTRERAS, Jyala Olmstead\Date and Time Signed: 12/05/22 13:43 [id number] Evaluation note * Encounter Date Diagnosis Assessment [...] (ICD-10 - Z20.822) Recommend testing for COVID [employer] Other 04-10-2023 Evaluation note* Encounter Date Diagnosis [...] colonoscopy in this asymptomatic, low risk patient [employer] Other 03-28-2023 Evaluation note* Encounter Date Diagnosis [...] to respiratory infections, vascular disease and cancers. [employer] Other Evaluation + Plan note No data available for this section [facility] [place] Evaluation noteNo InformationNort [employer] Other Evaluation note* Diagnosis Onset Date Resolution Status Aneurysm of ascending aorta without rupture acute ASHD (arteriosclerotic heart disease) acute Elevated cholesterol acute Nonrheumatic aortic (valve) stenosis acute Obesity acute Primary hypertension acute Pulmonary nodules acute Screening PSA (prostate specific antigen) noneactive Welcome to Medicare preventive visit noneactive [facility] Work Phone: Evaluation noteNo assessment information available [facility] Work Phone: Evaluation note* Diagnosis Onset Date Resolution Status Aneurysm of ascending aorta without rupture acute Nicotine addiction acute Pulmonary nodules acute Aneurysm of ascending aorta without rupture acute ASHD (arteriosclerotic heart disease) acute Elevated cholesterol acute Nicotine addiction acute Nonrheumatic aortic (valve) stenosis acute Obesity acute Primary hypertension acute Pulmonary nodules acute [facility] Work Phone: History general Narrative [...] osis Medical History Pulmonary nodules Surgical History [facility] 2013 Surgical History AVR AND CABG 2014 Hospitalization History SEE SURGICAL HX [employer] Other History general Narrative - Reported* Type [...] osis Medical History Pulmonary nodules Surgical History [facility] 2013 Surgical History AVR AND CABG 2014 Surgical History Colonoscopy w/ polypectomy 12/23 22 Hospitalization History SEE SURGICAL HX [employer] Other History general Narrative - Reported* Type [...] osis Medical History Pulmonary nodules Surgical History [facility] 2013 Surgical History AVR AND CABG 2014 Surgical History Colonoscopy w/ polypectomy, rep eat in 5 years 12/2022 Hospitalization History SEE SURGICAL HX [employer] Other Hospital Discharge instructions No data available for this section [facility] [place] Progress note No data available for this section General Surgery [facility] Summary Purpose Family History No Family History Records FoundNo Family History Records FoundNo Family History Records FoundNo Family History Records Found Advance Directives Advance Directive Response Recorded Date/ Time Advance Directives No August 29, 2023 2:20pm Reason for Referral Reason *FU 11/20 Screenin g colonoscopy in an asymptomatic, low risk patient Diagnosis 1 Colon cancer screeni nikos (Z12.11) Referral Organization [facility] yelena Referring Provider First Name Jovani Referring Provider Last Name Vinnie Referring Provider Specialty Internal Me dicine Referred Organization [facility] Referred Provider Jayla Ramirez Referred Address [address] [facility],[place], [place],[address] Referred Provider Specialty Surgery Referral Priority Routine General Notes Annmarie Rahman 04:32:30 PM >received today, attachments made, notes locked, referral faxed Clinical Notes [id number] Chief Complaint and Reason for Visit Chief Complaint Amb Documentation Wellness Reason for Visit Aneurysm of ascendin g aorta without rupture ASHD (arteriosclerotic heart disease) Elevated cholesterol Nonrheumatic aortic (valve) stenosis Obesity Primary hypertension Pulmonary nodules Screening PSA (prostate specific antigen) Welcome to Medicare preventive visit Chief Complaint Discuss CT Chief Complaint Discuss CT 6 month follow up Reason for Visit Aneurysm of ascendin g aorta without rupture Nicotine addiction Pulmonary nodules Aneurysm of ascending aorta without rupture ASHD (arteriosclerotic heart disease) Elevated cholesterol Nicotine addiction Nonrheumatic aortic (valve) stenosis Obesity Primary hypertension Pulmonary nodules Additional Source Comments (unrecognized sect ion and content) No Status Records FoundNo Status Records FoundNo Status Records FoundNo Status Records Found INFORMATION SOURCE (unrecogn ized section and content) DATE CREATED AUTHOR 02/20/2020 [facility] DATE CREATED AUTHOR AUTHOR'S ORGANIZ ATION 12/19/2022 [facility] DATE CREATED AUTHOR AUTHOR'S ORGANIZ ATION 01/13/2023 [facility] DATE CREATED AUTHOR AUTHOR'S ORGANIZ ATION 04/18/2024 [facility] REASON FOR VISIT (unrecogniz ed section and content) [facility] painWe [facility] centerSinuses- [phone] infectionNo InformationNo InformationNo Information6 month Follow up Patient Care team informatio n (unrecognized section and content) Team Status: Active Member Role Status Dates Jovani Birmingham DO Primary Care Provider Active Team Status: Active Member Role Status Dates Jovani Birmingham DO Primary Care Provide r, Attending Provider Active Start: October 02, 2023 Team Status: Inactive Member Role Status Dates Jovani Birmingham DO Primary Care Provide r, Attending Provider Active Start: November 14, 2023 End: November 14, 2023 Team Status: Active Member Role Status Dates Jovani Birmingham DO Primary Care Provider Active Start: March 13, 2024 Kenna Harrison Attending Provider Active Start: March 13, 2024 Team Status: Inactive Member Role Status Dates Jovani Birmingham , Primary Care Provide r, Attending Provider Active Start: March 14, 2024 End: March 14, 2024 Team Status: Inactive Member Role Status Dates Jovani Birmingham DO Primary Care Provide r, Attending Provider Active Start: May 15, 2024 End: May 15, 2024 Goals (unrecognized section and content) Goals may [...] BE BASED ON THE PRIMARY CLINICAL RECORDS. [facility] [employer] [facility]. provides no warranty or guarantee of the accuracy or completeness of information in this document.
== END 2024-06-17 08:44 | disposition home or self-care (01) ==
LOC: CT 08:43
PROVIDERS: PCP Internal Medicine; Visit Provider Internal Medicine
DX: R91.8 Other nonspecific abnormal finding of lung field (principal)
CPT/HCPCS: 71250

== ENCOUNTER 2024-11-04 08:44 | Outpatient (OUT) | payer MEDICARE, SELFPAY ==
--- NOTE | 2024-11-04 09:00 | CA_ITS ---
Patient Name: NORI SHARPE MR#: [id number] : 1960 Exam Date: 11/04/2024 Ordering Doctor: DR JLUIS FLORENTINO M.D. ECHOCARDIOGRAM REPORT PROCEDURE: CA ECHO DOPPLER COMPLETE INDICATIONS: Nonrheumatic aortic valve stenosis - bovine replacemant, CABGx2, hypertension, smoker COMPARISON: None. DESCRIPTION: COMPLETE ECHOCARDIOGRAM Real-time transthoracic echocardiography with 2D, M-mode, spectral and color flow Doppler performed. QUALITY: Technical quality was good. LEFT VENTRICLE: Normal chamber size. Thickened septal wall. Normal systolic function. LV EF: Normal left ventricular ejection fraction, (55%). DIASTOLIC: Normal diastolic function. ATRIAL SEPTUM: Visually appears intact. LEFT ATRIUM: Normal chamber size. RIGHT ATRIUM: Normal chamber size. RIGHT VENTRICLE: Normal chamber size. Normal right ventricular systolic function. TRICUSPID VALVE: Normal mobility and thickness. No stenosis with no regurgitation. Unable to assess right-sided pressures due to lack of measurable tricuspid regurgitation. MITRAL VALVE: Normal mobility and thickness. No evidence of mitral valve stenosis. There is no mitral annular calcification. Mild mitral regurgitation. AORTIC VALVE: Bio-Prosthetic valve appears well seated in the aortic position with normal doppler flow. Mean gradient 11 mmHg, peak velocity 2.2 m/s. No aortic regurgitation. AORTIC ROOT: Normal diameter and appearance, measuring 3.3 cm. Ascending aorta is normal in size (3.6 cm). PULMONIC VALVE: Normal thickness and mobility. No stenosis. Trivial regurgitation. PERICARDIUM: No evidence of pericardial effusion. IVC: Collapses with inspirations. IVC is normal in size. PLEURA: CONCLUSION: 1. The left ventricle is normal in size and exhibits normal systolic function. LVEF is estimated at 55%. 2. Normal right ventricular size and systolic function. 3. Bioprosthetic valve in the aortic position with normal Doppler flows and no regurgitation. 4. Mild mitral regurgitation. 5. Unable to assess right-sided pressures due to lack of measurable tricuspid regurgitation. Adult Echocardiography Procedure Report Left Ventricle LVEDD (3.7 - 5.6 cm): 5.44 cm LVESD (2.2 - 4.0 cm): 3.66 cm LVIVS thickness (0.6 - 1.2 cm): 1.20 cm LVPW thickness (0.5 - 1.0 cm): 0.83 cm e': 0.11 m/s E - e': 8.54 LVOT Max Gradient: 2.23 mm[Hg] LVOT Area (cm2): 0.75 m/s Peak Velocity (LVOT): 0.75 m/s Mean Velocity (LVOT): 0.56 m/s LVOT Diameter 2.40 cm Left Atrium LA Volume Index (2D A2C): 20.84 ml/m2 Left Atrium Systolic Dimension: 4.67 cm Mitral Valve MV E to A Ratio: 1.01 Mitral Valve A-Wave Peak Velocity: 0.93 m/s Mitral Valve E-Wave Peak Velocity: 0.94 m/s Right Ventricle Aorta AO Root Diam: 3.26 cm Ascending Ao Diam: 3.64 cm Aortic Valve AoV Area (Peak Magno): 1.52 cm2, 1.52 cm2 AoV Area (VTI): 1.74 cm2, 1.74 cm2 Peak Velocity(Antegrade Flow): 2.22 m/s Peak Gradient(Antegrade Flow): 19.69 mm[Hg] Mean Velocity(Antegrade Flow): 1.54 m/s Mean Gradient(Antegrade Flow): 10.73 mm[Hg] Velocity Time Integral: 51.75 cm Tricuspid Valve Pulmonic Valve Mean Gradient: 1.96 mm[Hg] Mean Velocity: 0.64 m/s Peak Velocity: 1.14 m/s, 1.37 m/s Peak Gradient: 7.50 mm[Hg], 5.20 mm[Hg] Right Atrium Right Atrium Systolic Pressure: 47.21 ml, 47.21 ml Dictated by: Benjy Gomez M.D. on 11/04/2024 at 19:50 Approved by: Benjy Gomez M.D. on 11/04/2024 at 19:53
--- OUTSIDE RECORDS SUMMARY | 2024-11-04 09:05 | XMS_ITS | CCD ---
Author Organization [facility] Care Team Providers Care Load Builder Name Role Phone MEME CRAMER Admitting Unavailable MEME CRAMER Attending Emily BIRMINGHAM, JOVANI Primary Care Unavailable SELF, REFERRED Referring [...] DR AMNA Srivastava Consulting Unavailable NILL, JAYLA Bryanitting Unavailable NILL, JAYLA Attending Unavailable BALL, DR SHIRLEY Primary Care Unavailable NILL, Jayla Srivastava Attending Unavailable BALL, JOVANI Referring Unavailable NILL, Jayla Srivastava Attending Unavailable NILL, Jayla Srivastava Attending Unavailable NILL, Jayla Srivastava Attending Unavailable BLEVINS, DINAH Referring Unavailable ELTAHAWY, KENNA Attending Unavailable Allergies Allergy Classification Reported Allergen(s) Allergy Type Date of Onset Reaction(s) Facility (1 source) No Known Medication Allergies; Translations: [No Known Medication Allergies] Propensity to adverse reactions (disorder) [facility] Repository (2 sources) patient allergy list reviewed by nurse or physicia Propensity to adverse reactions Comment:Done [facility] Other Medications Current Medications Medication Drug Class(es) [...] Start: 11-28-2022 take 1 tablet by isabel once daily benazepril 40 mg oral tablet [...] Coronary arteriosclerosis; Translations: [Atherosclerotic heart disease of [place] coronary artery without angina pectoris] Onset: 03-06-2016 [...] [Thoracic aortic aneurysm, without rupture, unspecified] Onset: 10-23-2024 Results Test Name Value Interpretation Reference Range Facility 36on 10-29-2024 36 2nd attempt to reach patient to schedule fu no answer lmom. [facility] 36on 10-28-2024 36 Call placed to patient to schedule fu appt with Dr Schuler no answer lmom to cb to schedule. [facility] Telephoneon 10-28-2024 Telephone [phone] Nori De La Rosa 1960 M Date Provider Department Center 10/28/2024 [id number] [facility]ANT[facility] Family History Problem Relation Age of Onset Coronary artery disease Father Other Father Family Status - Relation Status Age at Father Reason for Visit and Comments: Appointment [375] [facility] Office Visiton 10-23-2024 Follow-up visit [id number] Nori De La Rosa 1960 M Date Provider Department Center 10/23/2024 271-KENNA HARRISON JEFFREY [facility] Family History Problem Relation Age of Onset Coronary artery disease Father Other Father Family Status - Relation Status Age at Father Level of Service:20312 ME OFFICE/OUTPATIENT ESTABLISHED MOD MDM 30 MIN [facility] Orders Onlyon 10-23-2024 Orders Only [id number] Nori De La Rosa 1960 M Date Provider Department [place] 10/23/2024 895-ONDINA CEBALLOS JEFFREY [facility] Family History Problem Relation Age of Onset Coronary artery disease Father Other Father Family Status - Relation Status Age at Father [facility] 36on 04-16-2024 36 LVM to schedule 6 month follow up appointment with Dr. Blevisn [facility] Estimated glomerular filtrat ion rate (GFR) non- Americanon 03-13-2024 GFR/1.73 sq M.predicted among non-blacks MDRD (S/P/Bld) [Vol rate/Area] mL/min/{1.73_m2} >=60 [facility] Laboratory - Chemistry and C hemistry - challengeon 03-13-2024 Creatinine [Mass/Vol] 1.01 mg/dL 0.70-1.30 [facility] GFR/1.73 sq M.predicted MDRD (S/P/Bld) [Vol rate/Area] mL/min/{1.73_m2} >=60 [facility] Estimated glomerular filtrat ion rate (GFR) non- Americanon 10-02-2023 GFR/1.73 sq M.predicted among non-blacks MDRD (S/P/Bld) [Vol rate/Area] mL/min/{1.73_m2} >=60 [facility] Laboratory - Chemistry and C hemistry - challengeon 10-02-2023 Creatinine [Mass/Vol] 1.07 mg/dL 0.70-1.30 [facility] GFR/1.73 sq M.predicted MDRD (S/P/Bld) [Vol rate/Area] mL/min/{1.73_m2} >=60 [facility] Pathology Noteon 01-04-2023 Pathology Note [id number]#1 .00CD:127 [facility] Outside Colonoscopyon 2022 Outside Colonoscopy [id number]#1 .00CD:127 [facility] Pre-Certification Formon Pre-Certification Form [id number]# 1.00CD:127 [facility] Consent for Procedure/Surger yon 12-07-2022 Consent for Procedure/Surgery [id number]#1 .00CD:127 Normal [facility] Facesheeton 12-07-2022 Facesheet [id number]#1 .00CD:127 Normal [facility] Physician Referralon 023 Physician Referral [id number]#1 .00CD:127 Normal [facility] Physician Referral [id number]#1 .00CD:127 Normal [facility] Ambulatory Visit Summaryon 0 12-05-2022 Ambulatory [...] colon Thoracic aortic aneurysm without rupture Normal [facility] Physician Referralon 023 Physician Referral [id number] .00CD:127 Normal [facility] CBC AUTO DIFFon 11-13-2022 BASO # 0.0 103/ul Normal 0.0-0.1 [facility] Comment on above: Performed By: #### C BC #### [facility] [address] [place] [address] Dr. Charity Connors Basophils/100 WBC (Bld) 0.4 % Normal 0.2-2.0 [facility] Comment on above: Performed By: #### C BC #### [facility] [address] [place] [address] Dr. Charity Connors EO # 0.1 103/ul Normal 0.0-0.7 [facility] Comment on above: Performed By: #### C BC #### [facility] [address] [place] [address] Dr. Charity Connors Eosinophils/100 WBC (Bld) 1.2 % Normal 0.9-7.0 [facility] Comment on above: Performed By: #### C BC #### [facility] [address] [address] [address] Charity Connors Erythrocyte distribution width (RBC) [Ratio] 12.8 % Normal 11.0-15.0 [facility] Comment on above: Performed By: #### C BC #### [facility] [address] [place] [address] Dr. Charity Connors Hematocrit (Bld) [Volume fraction] 42.2 % Normal 42.0-54.0 [facility] Comment on above: Performed By: #### C BC #### [facility] [address] [place] [address] Dr. Charity Connors Hemoglobin (Bld) [Mass/Vol] 14.4 g/dL Normal 14.0-18.0 [facility] Comment on above: Performed By: #### C BC #### [facility] [address] [place] [address] Dr. Charity Connors IG # 0.02 10e3/ul Normal 0.00-0.03 [facility] Comment on above: Performed By: #### C BC #### [facility] [address] [place] [address] Dr. Charity Connors IG % 0.3 % Normal 0.0-0.5 [facility] Comment on above: Performed By: #### C BC #### [facility] [address] [place] [address] Dr. Charity Connors LYMPH # 2.2 103/ul Normal 1.2-3.8 [facility] Comment on above: Performed By: #### C BC #### [facility] [address] [place] [address] Dr. Charity Connors Lymphocytes/100 WBC (Bld) 30.3 % Normal 20.5-60.0 [facility] Comment on above: Performed By: #### C BC #### [facility] [address] [place] [address] Dr. Charity Connors MANUAL DIFF REQ NO Normal [facility] Comment on above: Performed By: #### C BC #### [facility] [address] [place] [address] Dr. Charity Connors MCH (RBC) [Entitic mass] 31.0 pg Normal 25.9-34.0 [facility] Comment on above: Performed By: #### C BC #### [facility] [address] [place] [address] Dr. Charity Connors MCHC (RBC) [Mass/Vol] 34.1 g/dL Normal 29.9-35.2 [facility] Comment on above: Performed By: #### C BC #### [facility] [address] [place] [address] Dr. Charity Connors MCV (RBC) [Entitic vol] 90.9 fL Normal 80.0-94.0 [facility] Comment on above: Performed By: #### C BC #### [facility] [address] [place] [address] Dr. Charity Connors MONO # 0.7 103/ul Normal 0.3-0.8 [facility] Comment on above: Performed By: #### C BC #### [facility] [address] [place] [address] Dr. Charity Connors Monocytes/100 WBC (Bld) 9.1 % Normal 1.7-12.0 [facility] Comment on above: Performed By: #### C BC #### [facility] [address] [place] [address] Dr. Charity Connors NEUT # 4.3 103/ul Normal 1.4-6.5 [facility] Comment on above: Performed By: #### C BC #### [facility] [address] [place] [address] Dr. Charity Connors Neutrophils/100 WBC (Bld) 58.7 % Normal 43.0-75.0 [facility] Comment on above: Performed By: #### C BC #### [facility] [address] [place] [address] Dr. Charity Connors Platelet mean volume (Bld) [Entitic vol] 9.3 fL Critically low 9.5-13.5 [facility] Comment on above: Performed By: #### C BC #### [facility] [address] [place] [address] Dr. Charity Connors PLT 450 103/ul Normal 150-[address] [facility] Comment on above: Performed By: #### C BC #### [facility] [address] [place] [address] Dr. Charity Connors RBC 4.64 106/ul Critically low 4.70-6.10 [facility] Comment on above: Performed By: #### C BC #### [facility] [address] [place] [address] Dr. Charity Connors WBC 7.3 103/ul Normal 4.0-11.[address] [facility] Comment on above: Performed By: #### C BC #### [facility] [address] [address] [address] Charity Connors Complete Blood Count and Dif cyndie 11-13-2022 Anisocytosis Ql (Bld) [facility] Other Basophilic stippling LM Ql (Bld) [facility] Other RBC morphology finding Nom (Bld) [facility] Other Complete Blood Count and Diff [facility] Other Comprehensive Metabolic Pane cary 11-13-2022 Albumin [Mass/Vol] 3.243990 g/dL 3.4-5.0 g/dL N [employer] devices Other Calcium [Mass/Vol] 9.7377398 mg/dL 8.5-10.1 mg/ dL [facility] Other CO2 [Moles/Vol] 29.61140788 mmol/L 21.0-3 2.0 mmol/L [facility] Other Creatinine [Mass/Vol] 0.27182681 mg/dL 0.70-1.30 mg/dL [facility] Other Potassium [Moles/Vol] 4.59526331 mmol/L 3.5-5.1 mmol/L [facility] Other Protein [Mass/Vol] 8.598414 g/dL Critically high 6.4-8.2 g /dL [facility] Other Urea nitrogen [Mass/Vol] 12.5488082 mg/dL 7.0-18.0 mg/dL [facility] Other Comprehensive Metabolic Panel see note [facility] Other Comprehensive Metabolic Panel 138 mmol/L 136-145 mmol/L [facility] Other Comprehensive Metabolic Panel 110 mg/dL Critically high 74-106 mg/dL [facility] Other Comprehensive Metabolic Panel >60 mL/min/1.73m2 >=60 mL/min/1.73m2 [facility] Other Comprehensive Metabolic Panel 0.4 mg/dL 0.2-1.0 mg/dL [facility] Other Comprehensive Metabolic Panel 4.9 g/dL [facility] Other Albumin/Globulin [Mass ratio] 0.7 {ratio} Normal [facility] Other Comment on above: Performed By: #### C MP, LIPID #### [facility] [address] [place] [address] Dr. Charity Connors ALP [Catalytic activity/Vol] 95 U/L Normal 46-116 [facility] Other Comment on above: Performed By: #### C MP, LIPID #### [facility] [address] [place] [address] Dr. Charity Connors ALT [Catalytic activity/Vol] 62 U/L Normal 16-63 [facility] Other Comment on above: Performed By: #### C MP, LIPID #### [facility] [address] [place] [address] Dr. Charity Connors Anion gap [Moles/Vol] 11.6 mmol/L Normal [facility] Other Comment on above: Performed By: #### C MP, LIPID #### [facility] [address] [address] [address] Charity Connors AST [Catalytic activity/Vol] 22 U/L Normal 15-37 [facility] Other Comment on above: Performed By: #### C MP, LIPID #### [facility] [address] [place] [address] Dr. Charity Connors Chloride [Moles/Vol] 102 mmol/L Normal 98-107 [facility] Other Comment on above: Performed By: #### C MP, LIPID #### [facility] [address] [place] [address] Dr. Charity Connors Urea nitrogen/Creatinin e [Mass ratio] 13.8 mg/mg Normal [facility] ([place]og[place]) [facility] Other Comment on above: Performed By: #### C MP, LIPID #### [facility] [address] [address] [address] Charity Connors LIPID PROFILEon 11-13-2022 CHOL-HDL RATIO NORM SEE BELOW Normal [facility] Comment on above: Result Comment: 3.3 - 4.4 LOW RISK 4.4 - 7.1 AVERAGE RISK 7.1 - 11.0 MODERATE RISK >11.0 HIGH RISK Performed By: #### C MP, LIPID #### [facility] [address] [address] [address] Charity Connors Cholesterol in LDL [Mass/Vol] 38.0 mg/dL Normal [facility] Comment on above: Performed By: #### C MP, LIPID #### [facility] [address] [place] [address] Dr. Charity Connors HDL NORMAL > or = 60 mg/dl - LO W CARDIOVASCULAR RISK <40 mg/dl - HIGH CARDIOVASCULAR RISK Normal [facility] Comment on above: Performed By: #### C MP, LIPID #### [facility] [address] [address] [address] Charity Connors LDL CALC NORMAL SEE BELOW Normal [facility] Comment on above: Result Comment: <100 mg/dl OPTIMAL 100 - 129 mg/dl NEAR OR ABOVE OPTIMAL 130 - 159 mg/dl BORDERLINE HIGH 160 - 189 mg/dl HIGH >190 mg/dl VERY HIGH Performed By: #### C MP, LIPID #### [facility] [address] [place] [address] Dr. Charity Connors VLDL CALC 40.0 mg/dL Normal [facility] Comment on above: Performed By: #### C MP, LIPID #### [facility] [address] [place] [address] Dr. Charity Connors Lipid Panelon 11-13-2022 Lipid Panel > or = 60 mg/dl - LO W CARDIOVASCULAR RISK <40 mg/dl - HIGH CARDIOVASCULAR RISK imbookin ([place]) [facility] Other Lipid Panel SEE BELOW [facility] Other Lipid Panel 38.0 mg/dL [facility] Other Lipid Panel 40.0 mg/dL [facility] Other Cholesterol [Mass/Vol] 107 mg/dL Normal <=200 [facility] Other Comment on above: Performed By: #### C MP, LIPID #### [facility] [address] [address] [address] Charity Connors Cholesterol in HDL [Mass/Vol] 29 mg/dL Critically low 40-60 [facility] Other Comment on above: Performed By: #### C MP, LIPID #### [facility] [address] [place] [address] Dr. Charity Connors Cholesterol.total/ Cholesterol in HDL [Mass ratio] 3.7 {ratio} Normal [facility] Other Comment on above: Performed By: #### C MP, LIPID #### [facility] [address] [place] [address] Dr. Charity Connors Triglyceride [Mass/Vol] 200 mg/dL Critically high <=150 [facility] Other Comment on above: Performed By: #### C MP, LIPID #### [facility] [address] [place] [address] Dr. Charity Connors PROF 14(COMP METB)on 023 Albumin [Mass/Vol] 3.6 g/dL Normal 3.4-5.0 [facility] Comment on above: Performed By: #### C MP, LIPID #### [facility] [address] [place] [address] Dr. Charity Connors Bilirubin [Mass/Vol] 0.4 mg/dL Normal 0.2-1.0 [facility] Comment on above: Performed By: #### C MP, LIPID #### [facility] [address] [place] [address] Dr. Charity Connors Calcium [Mass/Vol] 9.8 mg/dL Normal 8.5-10.1 [facility] Comment on above: Performed By: #### C MP, LIPID #### [facility] [address] [address] [address] Charity Connors CO2 [Moles/Vol] 29.2 mmol/L Normal 21.0-32.0 [facility] Comment on above: Performed By: #### C MP, LIPID #### [facility] [address] [address] [address] Charity Connors Creatinine [Mass/Vol] 0.87 mg/dL Normal 0.70-1.30 [facility] Comment on above: Performed By: #### C MP, LIPID #### [facility] [address] [address] [address] Charity Connors EGFR-AF MONEGASQUE >60 Normal >=60 [facility] Comment on above: Performed By: #### C MP, LIPID #### [facility] [address] [address] [address] Charity Connors EGFR-NON AF MONEGASQUE >60 Normal >=60 [facility] Comment on above: Performed By: #### C MP, LIPID #### [facility] [address] [address] [address] Charity Connors Globulin (S) [Mass/Vol] 4.9 g/dL Normal [facility] Comment on above: Performed By: #### C MP, LIPID #### [facility] [address] [address] [address] Charity Connors Glucose [Mass/Vol] 110 mg/dL Critically high 74-106 [facility] Comment on above: Performed By: #### C MP, LIPID #### [facility] [address] [address] [address] Charity Connors Potassium [Moles/Vol] 4.8 mmol/L Normal 3.5-5.1 [facility] Comment on above: Performed By: #### C MP, LIPID #### [facility] [address] [address] [address] Charity Connors Protein [Mass/Vol] 8.5 g/dL Critically high 6.4-8.2 [facility] Comment on above: Performed By: #### C MP, LIPID #### [facility] [address] [address] [address] Charity Connors Sodium [Moles/Vol] 138 mmol/L Normal 136-145 [facility] Comment on above: Performed By: #### C MP, LIPID #### [facility] [address] [address] [address] Charity Connors Urea nitrogen [Mass/Vol] 12.0 mg/dL Normal 7.0-18.0 [facility] Comment on above: Performed By: #### C MP, LIPID #### [facility] [address] [address] [address] Charity Connors CREATININEon 08-16-2022 Creatinine [Mass/Vol] 0.96 mg/dL Normal 0.70-1.30 [facility] Comment on above: Performed By: #### C JC #### [facility] [address] [place] [address] Dr. Charity Connors EGFR-AF MONEGASQUE >60 Normal >=60 [facility] Comment on above: Performed By: #### C JC #### [facility] [address] [place] [address] Dr. Charity Connors EGFR-NON AF MONEGASQUE >60 Normal >=60 [facility] Comment on above: Performed By: #### C JC #### [facility] [address] [place] [address] Dr. Charity Connors CTA CHEST WO W [...] by: AMNA BERNSTEIN Date: 2022-08-16 10:09 Normal [facility] ECHOCARDIO M/2D COMPLETEon 0 08-16-2022 ECHOCARDIO M/2D COMPLETE Patient: NORI DE LA ROSA Exam Date: 08/16/2022 : 1960 Gender:M Ordering : DR KENNA HARRISON M.D. Admission #: [id number] Family : DR JOVANI BIRMINGHAM D.ONoemi Order #: [id number] CLICK HERE TO VIEW EXAM ECHOCARDIOGRAM REPORT [...] Harrison M.D. on 08/17/2022 at 13:12 Normal [facility] CT CHEST WO CONon 07-14-2022 CT [...] by: JOSE PORTER Date: 2022-07-14 12:44 Normal [facility] CTA CHESTon 01-26-2020 CTA CHEST [facility] Department of Radiology [address] [place] [id number] Patient Name: NORI DE LA ROSA : 1960 Sex: M Age: Race: White Pt. Location: Patient Status: O Ordered Date: 12/09/2019 11:30:00 AM Completed Date: 01/26/2020 09:08 AM Requesting Provider: MEME CRAMER Attending Provider: MEME CRAMER Report Copy To: JOVANI BIRMINGHAM Signs & Symptoms: I71.2 Thoracic aortic aneurysm, without rupture I10 History: [place]. [id number] no pc required per [employer] auto ref# [id number] 01/11 Comments: Exam: CTA CHEST CTA CHEST [...] lobe. Electronically signed: Kat Joiner. Transcribed by: [email or web address], User Resident: Electronically Signed by: KAT JOINER @ 01/26/2020 09:29 AM Normal [facility] Vital Signs Date Time Vital Sign Value Performing Clinician Facility 05-15-2024 09:09-0400 Body mass index (BMI) [Ratio] 32.5 kg/m2 [facility] 05-15-2024 09:09-0400 Diastolic blood pressure 89 mm[Hg] [facility] 05-15-2024 09:09-0400 Systolic blood pressure 139 mm[Hg] [facility] 05-15-2024 08:34-0400 Body height 172.72 cm [facility] 05-15-2024 08:34-0400 Body weight 97.12 kg [facility] 05-15-2024 08:34-0400 Heart rate 62 /min [facility] 05-15-2024 08:34-0400 Respiratory rate 12 /min [facility] 03-14-2024 14:46-0400 Body height 172.72 cm [facility] 03-14-2024 14:46-0400 Body mass index (BMI) [Ratio] 32.2 kg/m2 [facility] 03-14-2024 14:46-0400 Body weight 96.16 kg [facility] 03-14-2024 14:46-0400 Diastolic blood pressure 75 mm[Hg] [facility] 03-14-2024 14:46-0400 Heart rate 77 /min [facility] 03-14-2024 14:46-0400 Systolic blood pressure 134 mm[Hg] [facility] 11-14-2023 08:40-0400 Body height 172.72 cm [facility] 11-14-2023 08:40-0400 Body mass index (BMI) [Ratio] 32.9 kg/m2 [facility] 11-14-2023 08:40-0400 Body weight 98.2 kg [facility] 11-14-2023 08:40-0400 Diastolic blood pressure 83 mm[Hg] [facility] 11-14-2023 08:40-0400 Heart rate 66 /min [facility] 11-14-2023 08:40-0400 Respiratory rate 12 /min [facility] 11-14-2023 08:40-0400 Systolic blood pressure 151 mm[Hg] [facility] 05-15-2023 08:30-0400 Body height 172.72 cm Jovani Ball Other [facility] Other 05-15-2023 08:30-0400 Body mass index (BMI) [Ratio] 31.68 kg/m2 Jovani Ball Other [facility] ([facility]) [facility] Other 05-15-2023 08:30-0400 Body weight 94.53 kg Jovani Ball Other [facility] Other 05-15-2023 08:30-0400 Diastolic blood pressure 80 mm[Hg] Jovani Ball Other [facility] Other 05-15-2023 08:30-0400 Respiratory rate 12 /min Jovani Ball Other [facility] Other 05-15-2023 08:30-0400 Systolic blood pressure 124 mm[Hg] Jovani Ball Other [facility] Other 12-13-2022 16:30-0400 Body height 172.72 cm Jovani Ball Other [facility] Other 12-13-2022 16:30-0400 Body mass index (BMI) [Ratio] 32.26 kg/m2 Jovani Ball Other [facility] Other 12-13-2022 16:30-0400 Body weight 96.25 kg Jovani Ball Other [facility] Other 12-13-2022 16:30-0400 Diastolic blood pressure 79 mm[Hg] Jovani Ball Other [facility] Other 12-13-2022 16:30-0400 Respiratory rate 12 /min Jovani Ball Other [facility] Other 12-13-2022 16:30-0400 Systolic blood pressure 148 mm[Hg] Jovani Ball Other [facility] Other 12-05-2022 13:10-0400 Blood Pressure Location [facility] [place] 12-05-2022 13:10-0400 Diastolic blood pressure 84 mm[Hg] Jayla NILL [facility] [place] 12-05-2022 13:10-0400 Heart rate 76 /min Jayla NILL [facility] [place] 12-05-2022 13:10-0400 Respiratory rate 16 /min Jayla NILL [facility] [place] 12-05-2022 13:10-0400 Systolic blood pressure 144 mm[Hg] Jayla NILL [facility] [place] 11-13-2022 10:30-0400 Body height 172.72 cm Jovani Ball Other [facility] Other 11-13-2022 10:30-0400 Body mass index (BMI) [Ratio] 32.26 kg/m2 Jovani Ball Other [facility] Other 11-13-2022 10:30-0400 Body weight 96.25 kg Jovani Ball Other [facility] Other 11-13-2022 10:30-0400 Diastolic blood pressure 74 mm[Hg] Jovani Ball Other [facility] Other 11-13-2022 10:30-0400 Respiratory rate 12 /min Jovani Ball Other [facility] Other 11-13-2022 10:30-0400 Systolic blood pressure 145 mm[Hg] Jovani Ball Other [facility] Other 10-31-2022 15:45-0400 Body height 172.72 cm Jovani Ball Other [facility] Other 10-31-2022 15:45-0400 Body mass index (BMI) [Ratio] 33.33 kg/m2 Jovani Ball Other [facility] Other 10-31-2022 15:45-0400 Body weight 99.43 kg Jovani Ball Other [facility] Other 10-31-2022 15:45-0400 Diastolic blood pressure 70 mm[Hg] Jovani Ball Other [facility] Other 10-31-2022 15:45-0400 Respiratory rate 12 /min Jovani Ball Other [facility] Other 10-31-2022 15:45-0400 Systolic blood pressure 122 mm[Hg] Jovani Ball Other [facility] Other Encounters Encounter Date Encounter Type Care Provider Facility Start: 10-23-2024 End: 10-23-[address] [facility] Start: 05-15-2024 End: 05-15-2024 ambulatory [facility] Work Phone: Start: 05-15-2024 End: 05-15-2024 Patient encounter procedure [facility] Work Phone: Start: 04-16-2024 End: 04-16-2024 ambulatory [facility] Start: 03-14-2024 End: 03-14-2024 ambulatory [facility] Work Phone: Start: 03-14-2024 End: 03-14-2024 Patient encounter procedure [facility] Work Phone: Start: 03-13-2024 Non-patient / Non-visit [facility] Work Phone: Start: 11-14-2023 End: 11-14-2023 ambulatory [facility] Work Phone: Start: 11-14-2023 End: 11-14-2023 Encounter for general adult medical examination without abnormal findings [facility] Start: 11-14-2023 End: 11-14-2023 Patient encounter procedure [facility] Work Phone: Start: 10-02-2023 Non-patient / Non-visit [facility] Work Phone: Start: 10-02-2023 Non-patient / Non-visit [facility] Work Phone: Start: 05-15-2023 End: 05-15-2023 ambulatory Jovani Birmingham Other [facility] Other Start: 05-15-2023 Office outpatient vi sit 25 minutes Jovani Ball [facility] Start: 03-20-2023 End: 03-20-2023 ambulatory Jovani Ball Other [facility] Other Start: 03-20-2023 Telephone encounter Jovani Birmingham [facility] Start: 01-04-2023 End: 01-04-2023 ambulatory Jovani Ball Other [facility] Other Start: 01-04-2023 Telephone encounter [facility] Start: 12-27-2022 End: 12-28-2022 ambulatory JAYLA COOKL Facility: Start: 12-13-2022 End: 12-13-2022 ambulatory Jovani Birmingham Other [facility] Other Start: 12-13-2022 Office outpatient vi sit 15 minutes Jovani Birmingham [facility] Start: 12-05-2022 End: 12-06-2022 ambulatory Jayla R NILL Facility:[facility] Start: 12-05-2022 End: 12-05-2022 Patient encounter procedure Jayla R NILL [facility] N[facility] [place] Start: 12-04-2022 End: 12-04-2022 ambulatory Jovani Birmingham Other [facility] Other Start: 12-04-2022 Office outpatient vi sit 15 minutes Jovani Birmingham [facility] Start: 11-19-2022 Encounter for genera l adult medical examination without abnormal findings DR JOVANI BIRMINGHAM [facility] Start: 11-15-2022 ambulatory Jayla Srivastava NILL Facility :[facility] Start: 11-13-2022 End: 11-14-2022 Encounter for general adult medical examination without abnormal findings Jovani Birmingham [facility] Start: 11-13-2022 Periodic preventive med est patient 40-64yrs Jovani Birmingham [facility] Start: 11-13-2022 End: 11-14-[address] JOVANI BIRMINGHAM [facility] Other Start: 10-31-2022 End: 10-31-2022 ambulatory Jovani Birmingham Other [facility] Other Start: 10-31-2022 Office outpatient vi sit 15 minutes Jovani Birmingham [facility] Start: 10-30-2022 End: 10-30-2022 ambulatory Jovani Birmingham Other [facility] Other Start: 10-30-2022 Telephone encounter Jovani Birmingham [facility] Start: 08-18-2022 Encounter for other preprocedural examination DR KENNA HARRISON [facility] Start: 08-16-2022 End: 08-17-[address] KENNA HARRISON Facility:[facility] Start: 08-16-2022 End: 08-17-2022 Encounter for other preprocedural examination DR KENNA HARRISON Facility:[facility] Start: 07-14-2022 End: 07-15-[address] JOVANI BIRMINGHAM Facility:[facility] Start: 02-25-2021 Adult health examination Gael Birmingham Other [facility] Other Start: 01-26-2020 End: 01-27-2020 Patient encounter procedure MEME BELA Facility:[facility] Procedures Date Procedure Procedure Detail Performing Clinician Start: 11-13-2022 End: 11-13-2022 PSA screening Jovani Birmingham Other Comment on above: Performed By: #### P [facility] #### [facility] [address] [place] [address] Dr. Charity Connors Start: 08-06-2014 Coronary artery [...] Author Start: 01-16-2023 ambulatory Ambulatory Facility:[facility] metabo lic 2000 panel - Serum or Plasma [facility] CT Chest WO contrast [facility] Immunizations Immunization Date Immunization Notes Care Provider Mauricio garcia 05-15-2024 influenza, high dose seasonal, preservative-free [facility] 05-15-2023 influenza, injectabl e, quadrivalent, preservative free Jovani Birmingham Other [facility] 05-18-2022 influenza virus vacc ine, unspecified formulation Jayla COOKMiranda [facility] [place] 07-08-2021 SARS-CoV-2 (COVID-19 ) mRNA BNT-162b2 vax Jayla RAMIREZ [facility] [place] 10-11-2020 COVID-19 Vaccine Regis ssen - Documentation Purposes Only Jovani Birmingham Other [facility] [place] 05-28-2015 tetanus and diphther ia toxoids, adsorbed, preservative free, for adult use (5 Lf of tetanus toxoid and 2 Lf of diphtheria toxoid) Jovani Birmingham Other [facility] Payers Date Payer Category Payer Medicare [id number] 2024 Unknown [id number] 2006 Private Health Insurance [id number] 1961 [facility] [id number] 1958 Unknown [id number] 2.16.8 [id number] 1958 Unknown [id number] 2.16.84 [id number] 1958 Unknown [id number] 2.16.84 [id number] 1958 Unknown [id number] 2.16.84 [id number] 1958 Unknown [id number] 2.16.84 [id number] 1958 Unknown [id number] 2.16.8 [id number] 1958 Unknown [id number] 2.16.8 [id number] 1958 Unknown [id number] 2.16.8 [id number] 1958 Unknown [id number] 2.16.8 [id number] Social History Date Type Detail Facility Sex Assigned At [facility] Start: 12-05-2022 Tobacco smoking status Heavy t obacco smoker (finding) [facility] [place] Tobacco smoking status Never [facility] [place] Start: 1960 Sex Assigned At Male F [facility] Functional Status Date Assessment Result Facility 12-05-2022 Functional Status N/A [facility] Clinical Notes 10-31-2022 to 10-23-2024 Note Date & Type Note Facility 10-23-2024 Note [facility] Note Chief Complaint: Patient here for 1 year follow up CAD, aortic valve disorder, and thoracic aortic aneurysm. Had CTA in Mar and CT in Jun 2024. No complaints today HPI: Nori De La Rosa is a 63 y.o. male with a history of Coronary artery disease, aortic valve disorder s/p valve replacement and aneurysm of the ascending thoracic aorta. Doing well; no new symptoms Cardiology ROS: Review of Systems Respiratory: Positive for cough. All other systems reviewed and are negative. Past Medical History He has a past medical history of Aneurysm, Coronary artery disease, Heart murmur, Heart valve disease, Hyperlipidemia, and Hypertension. Surgical History He has a past surgical history that includes CTA Chest W IV Contrast (09/09/2016); CTA Chest W IV Contrast (01/26/2020); Cardiac catheterization; Aortic valve replacement; and Tonsillectomy. Social History He reports that he has been smoking cigarettes. He has never used smokeless tobacco. He reports current alcohol use. No history on file for drug use. Family History Family History Problem Relation Name Age of Onset Coronary artery disease Father Other (CABG) Father Allergies Patient has no known allergies. Medications Current Outpatient Medications: aspirin 81 mg EC tablet, in the morning., Disp: , Rfl: atorvastatin (Lipitor) 80 mg tablet, Take 1 tablet (80 mg) by mouth in the morning., Disp: 90 tablet, Rfl: 3 benazepril (Lotensin) 40 mg tablet, TAKE 1 TABLET BY MOUTH EVERY DAY DIRECTED, Disp: 90 tablet, Rfl: 3 clopidogrel (Plavix) 75 mg tablet, TAKE 1 TABLET (75 MG) BY MOUTH IN THE MORNING, Disp: 90 tablet, Rfl: 3 metoprolol tartrate (Lopressor) 25 mg tablet, Take 1 tablet (25 mg) by mouth in the morning and at bedtime., Disp: 180 tablet, Rfl: 3 Last Recorded Vitals BP 132/76 (BP Location: Left arm, Patient Position: Sitting) Pulse 60 Ht 1.803 m (5' 11 ) Wt 97.1 kg (214 lb) SpO2 98% BMI 29.85 kg/m??? Physical Examination: GENERAL: alert and oriented [...] previously it measured 4.7 x 5.0 cm Attestation signed by Dinah Blevins MD at 10/27/2023 5:38 PM I agree with the above. I examined and discussed the patient with the resident. Patient has a 5cm ascending aortic aneurysm. He is asymptomatic. We will have him follow up in 6months. CARDIAC: Aortic valve replacement. No enlargement, pericardial thickening, or pericardial effusion. Coronary Artery calcifications: Coronary calcifications are moderate. AORTA: Fusiform dilation of ascending thoracic aorta, 4.8 cm in diameter. CHEST WALL: No mass or axillary adenopathy BONES: No bone lesion or fracture. LIMITED ABDOMEN: No suspicious findings. Limited images of the upper abdomen. OTHER: Negative. CT/CT chest wo con IMPRESSION: 1. Lung-RADS 2- Benign Appearance or Behavior. Nodules with a very low likelihood of becoming a clinically active cancer due to size or lack of growth. Follow-up CT Chest in 1 year. 2. Clearing of the new opacities seen within the right upper lobe on prior study. Assessment: 1. Coronary atherosclerosis - S/P SVG (more content not included)... [facility] 05-15-2023 Evaluation note Encounter Date Diagnosis [...] CT: 3.4cm - 03/2023 Serial CTA by [facility] - tentatively scheduled for recheck after 6mo but scheduled wrong imaging procedure - control BP - continue ASA and Statin therapy He is to call [facility] to see if CTA abdomen should be scheduled (year anniversary is Jul) May, Pulmonary nodules (ICD-10 - R91.8) CT: 0.5cm - 03/2023 Denies dyspnea, change in sputum production or hemoptysis. Continue LDCT May, S/P aortic valve replacement (ICD-10 - Z95.2) Serial Echo and f/u with [facility] Cardiology Denies CP, tachycardia or syncope [facility] Other 08-15-2023 Evaluation note* Encounter Date Diagnosis [...] (ICD-10 - R91.8) CT: 0.5cm - 03/2023 [facility] Other 08-15-2023 Evaluation note* Encounter Date Diagnosis Assessment Notes Treatment Notes Treatment Clinical Notes Mar, Pulmonary nodules (ICD-10 - R91.8) Mar, Aneurysm of the ascending aorta, without rupture (ICD-10 - I71.21) CTA: 4.7cm - 01/2021, CT: 4.7cm - 08/2021, CT: 4.8cm - 07/2022 [facility] Other 05-10-2023 Evaluation note* Encounter Date Diagnosis [...] to respiratory infections, vascular disease and cancers. [facility] Other 05-02-2023 NoteChief Complaint consultation for screening [...] Recorded SARS-CoV-2 (COVID-19) Ad (more content not included)...[facility] Comment: Electronically Signed By: IVON CONTRERAS, Jayla Olmstead\Date and Time Signed: 12/05/22 13:43 [id number] Evaluation note * Encounter Date Diagnosis Assessment [...] (ICD-10 - Z20.822) Recommend testing for COVID [facility] Other 04-10-2023 Evaluation note* Encounter Date Diagnosis [...] colonoscopy in this asymptomatic, low risk patient [facility] Other 03-28-2023 Evaluation note* Encounter Date Diagnosis [...] to respiratory infections, vascular disease and cancers. [facility] Other Evaluation + Plan note No data available for this section [facility] [place] Evaluation noteNo InformationNort [employer] Other Evaluation note* Diagnosis Onset Date Resolution Status Aneurysm of ascending aorta without rupture acute ASHD (arteriosclerotic heart disease) acute Elevated cholesterol acute Nonrheumatic aortic (valve) stenosis acute Obesity acute Primary hypertension acute Pulmonary nodules acute Screening PSA (prostate specific antigen) noneactive Welcome to Medicare preventive visit noneactive [facility] Work Phone: Evaluation noteNo assessment information available [facility] Work Phone: Evaluation note* Diagnosis Onset Date Resolution Status Aneurysm of ascending aorta without rupture acute Nicotine addiction acute Pulmonary nodules acute Aneurysm of ascending aorta without rupture acute ASHD (arteriosclerotic heart disease) acute Elevated cholesterol acute Nicotine addiction acute Nonrheumatic aortic (valve) stenosis acute Obesity acute Primary hypertension acute Pulmonary nodules acute [facility] Work Phone: History general Narrative - Reported* [...] osis Medical History Pulmonary nodules Surgical History [facility] 2013 Surgical History AVR AND CABG 2015 Hospitalization History SEE SURGICAL HX [facility] Other History general Narrative - Reported* Type [...] osis Medical History Pulmonary nodules Surgical History [facility] 2013 Surgical History AVR AND CABG 2014 Surgical History Colonoscopy w/ polypectomy 12/23 22 Hospitalization History SEE SURGICAL HX [facility] Other History general Narrative - Reported* Type [...] osis Medical History Pulmonary nodules Surgical History [facility] 2013 Surgical History AVR AND CABG 2014 Surgical History Colonoscopy w/ polypectomy, rep eat in 5 years 12/2022 Hospitalization History SEE SURGICAL HX [facility] Other Hospital Discharge instructions No data available for this section [facility] [place] Progress note No data available for this section [facility] [place] Summary Purpose Family History No Family History Records FoundNo Family History Records FoundNo Family History Records FoundNo Family History Records Found Advance Directives No Advanced Directives Records Found Advance Directive Response Recorded Date/ Time Advance Directives No August 29, 2023 2:20pm Reason for Referral Reason *FU 11/20 Screenin g colonoscopy in an asymptomatic, low risk patient Diagnosis 1 Colon cancer screeni nikos (Z12.11) Referral Organization [facility] Referring Provider First Name Jovani Referring Provider Last Name Vinnie Referring Provider Specialty Internal Me dicine Referred Organization [facility] Referred Provider Jayla Ramirez Referred Address [address] [place], [place],[address] Referred Provider Specialty Surgery Referral Priority Routine General Notes Annmarie Rahman 04:32:30 PM >received today, attachments made, notes locked, referral faxed Clinical Notes [id number] Chief Complaint and Reason for Visit Chief [...] section and content) DATE CREATED AUTHOR 02/20/2020 [facility] DATE CREATED AUTHOR AUTHOR'S ORGANIZ ATION 12/19/2022 [facility] DATE CREATED AUTHOR AUTHOR'S ORGANIZ ATION 01/13/2023 [facility] DATE CREATED AUTHOR AUTHOR'S ORGANIZ ATION 10/30/2024 [facility] REASON FOR VISIT (unrecogniz ed section and content) Wants in todaystomach painWe llnessWellnessSinuses- [phone] infectionNo InformationNo InformationNo Information6 month Follow up [...] Care Provider Active Start: March 13, 2024 Mayurab Evgeny Harrison Attending Provider Active Start: March 13, [...] BE BASED ON THE PRIMARY CLINICAL RECORDS. [facility] [employer] [facility]. provides no warranty or guarantee of the accuracy or completeness of information in this document.
== END 2024-11-04 08:45 | disposition home or self-care (01) ==
LOC: CARD 08:44
PROVIDERS: PCP Internal Medicine; Visit Provider Internal Medicine Interventional Cardiology
DX: I71.20 Thoracic aortic aneurysm, without rupture, unspecified (principal); I35.0 Nonrheumatic aortic (valve) stenosis
CPT/HCPCS: 93306

== ENCOUNTER 2025-03-16 08:35 | Outpatient (OUT) | payer MEDICARE, SELFPAY ==
--- OUTSIDE RECORDS SUMMARY | 2025-03-16 08:40 | XMS_ITS | Clinical Summary ---
Author Organization [facility] Address [address] [place] [address], [address] [place] [address] Care Team Providers Care Eligibility Examiner Name Role Phone Jovani Birmingham DO Primary Care Provider [phone] Allergies No known active allergies Medications No known medications Immunizations Immunization Administration Dates Next Due TDaP, ADACEL (age 10y-64y), BOOSTRIX (age 10y+), IM, 0.5mL 04/07/2014 Social History Tobacco Use Types Packs/Day Years Used Date Smoking Tobacco: Every Day Sex and Gender Information Value Date Recorded Sex Assigned at Not on file Legal Sex Male 9:24 AM EST Gender Identity Not on file Sexual Orientation Not on file Last Filed Vital Signs Vital Sign Reading Time Taken Comments Blood Pressure 148/91 07/18/2016 2:46 PM EST Pulse 78 07/18/2016 2:43 PM EST Temperature 37.1 C (98.8 F) 07/18/2016 2:43 PM EST Respiratory Rate 16 07/18/2016 2:43 PM EST Oxygen Saturation 92% 07/18/2016 2:43 PM EST Inhaled Oxygen Concentration - - Weight - - Height - - Body Mass Index - - Plan of Treatment Not on file Care Teams Eligibility Examiner Relationship Specialty Start Date End Date Jovani Birmingham DO PCP - General 04/07/14
--- OUTSIDE RECORDS SUMMARY | 2025-03-16 08:40 | XMS_ITS | Clinical Summary ---
Author Organization [facility] Address [address] [place] [address] Care Team Providers Care Wharf Tally Clerk Name Role Phone VinnieJovani Primary Care Provider [phone] Allergies No known active allergies Medications aspirin 81 mg EC tablet in the morning. Active clopidogrel (Plavix) 75 mg tabletIndications :Atherosclerotic heart disease of [place] coronary artery without angina pectoris TAKE 1 TABLET (75 MG) BY MOUTH IN THE MORNING 90 tablet 3 4 07/09/20 25 Active benazepril (Lotensin) 40 mg tabletIndications :Benign hypertensive heart disease without congestive heart failure TAKE 1 TABLET BY MOUTH EVERY DAY DIRECTED 90 tablet 3 5 Active atorvastatin (Lipitor) 80 mg tabletIndications :Atherosclerotic heart disease of [place] coronary artery without angina pectoris TAKE 1 TABLET (80 MG) BY MOUTH IN THE MORNING 90 tablet 3 5 Active metoprolol tartrate (Lopressor) 25 mg tabletIndications :Atherosclerotic heart disease of [place] coronary artery without angina pectoris TAKE 1 TABLET BY MOUTH IN THE MORNING AND AT BEDTIME 180 tablet 3 5 Active Active Problems Problem Noted Date Diagnosed Date Aneurysm of thoracic aorta 09/18/2022 Coronary atherosclerosis 09/18/2022 Dyspnea 09/18/2022 Hyperlipidemia 11/09/2017 Aortic valve disorder 07/08/2014 Congenital stenosis of aortic valve 07/08/2014 Benign essential hypertension 07/06/2014 Heart murmur 07/06/2014 Obesity 07/06/2014 Tobacco dependence syndrome 07/06/2014 Encounters Date Type Department Care Team Description 01/05/2025 Refill [facility] [address] [place] [address] [place] [address] Kimber Dumont, CORBIN Atherosclerotic heart disease of [place] coronary artery without angina pectoris from Last 3 Months Family History Medical History Relation Name Comments CABG Father Coronary artery disease Father Relation Name Status Comments Father Social History Tobacco Use Types Packs/Day Years Used Date Smoking Tobacco: Every Day Cigarettes Smokeless Tobacco: Never Tobacco Cessation:Ready to Q uit: No; Counseling Given: No Alcohol Use Standard Drinks/Week Comments Yes 0 (1 standard drink = 0.6 oz pur e alcohol) couple beers daily PHQ-2 Answer Date Recorded Patient Health Questionnaire-2 Score 0 10/16/2023 [place] Safety & Environment Answer Date Rec orded Fear of Current or Ex-Partner Not on file Emotionally Abused Not on file 09/27/2023 Physically Abused Not on file 09/27/2023 Sexually Abused Not on file 09/27/2023 Physically or Sexually Abused Not on file Sex and Gender Information Value Date Recorded Sex Assigned at Not on file Legal Sex Male 9:03 PM EDT Gender Identity Not on file Sexual Orientation Not on file Last Filed Vital Signs Vital Sign Reading Time Taken Comments Blood Pressure 132/76 10/23/2024 12:14 PM EDT Pulse 60 10/23/2024 12:14 PM EDT Temperature 37 C (98.6 F) 10/16/2023 3:21 PM EDT Respiratory Rate 18 01/26/2020 9:26 AM EDT Oxygen Saturation 98% 10/23/2024 12:14 PM EDT Inhaled Oxygen Concentration - - Weight 97.1 kg (214 lb) 10/23/2024 12:14 PM EDT Height 180.3 cm (5' 11 ) 10/23/2024 12:14 PM EDT Body Mass Index 29.85 10/23/2024 12:14 PM EDT Plan of Treatment Health Maintenance Due Date Last Done Comments CT Colonography 1960 Colonoscopy 1960 FIT-DNA 1960 FOBT 1960 Medicare Annual Wellness (AWV) 1960 Sigmoidoscopy 1960 Depression Screening 1970 Pneumococcal Vaccine: 50+ Ye ars (1 of 2 - PCV) 1977 Zoster Vaccines (1 of 2) 2008 Colorectal Cancer Screening 03/08/2021 FIT 03/08/2021 03/08/2020 Fall Risk Screening 11/28/2023 COVID-19 Vaccine (2023-2 5 season) 2024 Adult Tetanus 04/07/2024 04/07/2014 Influenza Vaccine (#1) 2025 HIB Vaccines Aged Out No longer eligi ble based on patient's age to complete this topic HPV Vaccines Aged Out No longer eligi ble based on patient's age to complete this topic IPV Vaccines Aged Out No longer eligi ble based on patient's age to complete this topic Meningococcal B Vaccine Aged Out No l onger eligible based on patient's age to complete this topic Meningococcal Vaccine Aged Out No cary carlos eligible based on patient's age to complete this topic Rotavirus Vaccines Aged Out No longer eligible based on patient's age to complete this topic Insurance MEDICARE [facility] Advance Directives Documents on File Type Date Recorded Patient Occ Ther Expl anation Advance Directives and Livin g Will 10/23/2024 12:08 PM Advance Directives and Livin g Will 10/23/2024 12:08 PM Care Teams Wharf Tally Clerk Relationship Specialty Start Date End Date Jovani Birmingham DO [address] [facility] [place] [address] PCP - General 08/16/22
[2025-03-16 09:20] LABS: Hematocrit 45.0 % (42.0-54.0); Hemoglobin 15.6 g/dL (14.0-18.0); Immature Granulocytes Abs Auto 0.02 10^3/uL (0.00-0.03); Immature Granulocytes Pct Auto 0.2 % (0.0-0.5); Lymphocytes Absolute Auto 2.2 10^3/uL (1.2-3.8); Mean Corpuscular HGB Conc 34.7 g/dL (29.9-35.2); Mean Corpuscular Hemoglobin 31.9 pg (25.9-34.0); Mean Corpuscular Volume 92.0 fL (80.0-94.0); Platelet Count 192 10^3/uL (150-450); Red Blood Count 4.89 10^6/uL (4.70-6.10); White Blood Count 8.4 10^3/uL (4.0-11.0)
[2025-03-16 10:23] LABS: Alanine Aminotransferase 42 U/L (16-63); Albumin Globulin Ratio 1.2; Albumin Level 4.1 g/dL (3.4-5.0); Alkaline Phosphatase 96 U/L (46-116); Anion Gap 12.3; Aspartate Amino Transferase 23 U/L (15-37); Blood Urea Nitrogen 17.0 mg/dL (7.0-18.0); Calcium 9.2 mg/dL (8.5-10.1); Carbon Dioxide 27.8 mmol/L (21.0-32.0); Chloride 102 mmol/L (98-107); Cholesterol 133 mg/dL (<=200); Estimated GFR (African America >60 (>=60 mL/min/1.73m^2); Estimated GFR (Non-African Ame >60 (>=60 mL/min/1.73m^2); Globulin 3.3 g/dL; Glucose 107 mg/dL (74-106); HDL Cholesterol 35 mg/dL (40-60); Potassium 4.1 mmol/L (3.5-5.1); Sodium 138 mmol/L (136-145); Total Protein 7.4 g/dL (6.4-8.2); Triglycerides 368 mg/dL (<=150); VLDL CHOLESTEROL 73.6 mg/dL
== END 2025-03-16 08:36 | disposition home or self-care (01) ==
LOC: LAB 08:37
PROVIDERS: PCP Internal Medicine; Visit Provider Internal Medicine
DX: E78.00 Pure hypercholesterolemia, unspecified (principal); I25.10 Atherosclerotic heart disease of native coronary artery without angina pectoris; I10 Essential (primary) hypertension; Z12.5 Encounter for screening for malignant neoplasm of prostate
CPT/HCPCS: 36415; 80053; 80061; 85025; G0103

== ENCOUNTER 2025-06-17 07:59 | Outpatient (OUT) | payer MEDICARE, SELFPAY ==
--- NOTE | 2025-06-17 | CT_ITS ---
The [address] [address] Patient Name: NORI SHARPE MRN: [facility]:[id number] date: 1960 Sex: M Assigned Patient Location: LAB Current Patient Location: LAB Accession/Order Number: [id number] Exam Date: 06/17/2025 08:45 Report Date: 06/17/2025 10:03 At the request of: FERN ANDERSON DO Procedure: CT angio chest CT CHEST WITH CONTRAST CLINICAL HISTORY: R91.8, I71.21, Aneurysm ascending aorta without rupture. Pulmonary nodules. COMPARISON: 06/17/2024 TECHNIQUE: Spiral images were obtained through the chest following intravenous administration of 100 mL of Omnipaque 350. Images were reviewed using both narrow and wide window settings. Sagittal, coronal and 3 D volume-rendered reconstructions were performed and reviewed. This CT exam was performed using one or more following dose reduction techniques: Automated exposure control, adjustment of the mA and/or kV according to patient size, or use of iterative reconstruction technique. FINDINGS: Median sternotomy wires are present. The heart is top normal in size. There is no pericardial effusion. There is a prosthetic aortic valve. Minor coronary disease is seen. Aneurysmal dilatation of the ascending aorta is again noted with diameter of approximately 4.8 cm. No dissection is seen. There is adequate opacification of the pulmonary arteries. No emboli are identified. No pathologic lymphadenopathy is seen. There is minor gynecomastia. Slight dextroscoliotic curvature and tiny endplate spurs are present. Minor linear atelectasis and/or scarring is seen at the basilar right upper lobe. There is no developing consolidation, effusion or pneumothorax. There is stable pulmonary nodularity, largest at the left lower lobe measuring 4-5 mm in size Limited cuts through the upper abdomen show no contributory abnormality. CT/CT angio chest IMPRESSION: NO CT EVIDENCE OF PULMONARY EMBOLISM. STABLE ASCENDING AORTIC ANEURYSM, WITHOUT DISSECTION. MINIMAL RIGHT UPPER LOBE ATELECTASIS AND/OR SCARRING. SIMILAR PULMONARY NODULARITY. Impression dictated by: Tatyana Doshi M.D. 06/17/2025 10:03 AM Dictation Location: [place] [address] Electronically authenticated by: [id number] Y Date: 06/17/2025 10:03
--- OUTSIDE RECORDS SUMMARY | 2025-06-17 08:03 | XMS_ITS | Clinical Summary ---
Author Organization The [facility] Address [address] [place] [address] Care Team Providers Care Software Development Analyst Name Role Phone VinnieJovani Primary Care Provider [phone] Allergies No known active allergies Medications MedicationSigDispense QuantityRefillsLast FilledStart DateEnd DateStatus aspirin 81 mg EC tablet in the morning.Active clopidogrel (Plavix) 75 mg tablet Indications:Atherosclerotic heart disease of [place] coronary artery without angina pectorisTAKE 1 TABLET (75 MG) BY MOUTH IN THE MORNING 90 tablet 312415Active benazepril (Lotensin) 40 mg tablet Indications:Benign hypertensive heart disease without congestive heart failure TAKE 1 TABLET BY MOUTH EVERY DAY DIRECTED 90 tablet 5Active atorvastatin (Lipitor) 80 mg tablet Indications:Atherosclerotic heart disease of [place] coronary artery without angina pectorisTAKE 1 TABLET (80 MG) BY MOUTH IN THE MORNING 90 tablet 5Active metoprolol tartrate (Lopressor) 25 mg tablet Indications:Atherosclerotic heart disease of [place] coronary artery without angina pectorisTAKE 1 TABLET BY MOUTH IN THE MORNING AND AT BEDTIME 180 tablet 5Active Active Problems ProblemNoted DateDiagnosed DateAneurysm of thoracic aorta09/18/2022oronary apjnfzxhipfmmsa66/13/8456Ioofnwj87/13/3921Mdzfzgnulgiwmh05/06/2018Aortic valve foknzpeu85/03/2014Congenital stenosis of aortic valve07/08/2014enign essential bcwdnxjexnmy42/01/2014Heart eljgpg4609/06/20132103Rthqjem66/01/2014Tobacco dependence tvrujsts99/01/2014 Family History Medical HistoryRelationNameCommentsCABGFatherCoronary artery diseaseFather RelationNameStatusCommentsFather Social History Tobacco UseTypesPacks/DayYears UsedDateSmoking Tobacco: Every DayCigarettes Smokeless Tobacco: Never Tobacco Cessation:Ready to Q uit: No; Counseling Given: No Alcohol UseStandard Drinks/WeekCommentsYes0 (1 standard drink = 0.6 oz pure alcohol)couple beers dailyPHQ-2AnswerDate RecordedPatient Health Questionnaire-2 Mkeks325UT Safety & EnvironmentAnswerDate RecordedFear of Current or Ex-PartnerNot on file09/27/2023Emotionally AbusedNot on 09/27/2023hysically AbusedNot on 09/27/2023Sexually AbusedNot on 09/27/2023hysically or Sexually AbusedNot on 09/27/2023Sex and Gender InformationValueDate Recorded Sex Assigned at BirthNot on fileLegal YbgBjzh0102/01/2022 9:03 PM EDTGender IdentityNot on fileSexual OrientationNot on file Last Filed Vital Signs Vital SignReadingTime TakenCommentsBlood Nylavppp222/7603 12:14 PM EDT Nhlmn7614/20/2025 12:14 PM IKRVotvrmzilha37 ??C (98.6 ??F)10/16/2023 3:21 PM EDT Respiratory Hllz6743 9:26 AM EDTOxygen Jhpcpjnomi23%10/23/2024 12:14 PM EDTInhaled Oxygen Concentration--Eazhmf25.1 kg (214 lb)10/23/2024 12:14 PM EDT Vrqyjn369.3 cm (5' 11 )10/23/2024 12:14 PM EDTBody Mass Index29.85010/23/2024 12:14 PM EDT Plan of Treatment Health MaintenanceDue DateLast DoneCommentsCT Vhfyegzbumex24/24/1959Colonoscopy 1960FIT-DNA1958FOBT1958Medicare Annual Wellness (AWV) 1960 9622Xhsbuhdeurrbf07/24/1959Depression Jzqbgdner52/24/1971Pneumococcal Vaccine: 50+ Years (1 of 2 - PCV)1977Zoster Vaccines (1 of 2)2008 Colorectal Cancer Gcqspmbsb36/03/2757ANF14Fall Risk Screening 11/28/2023dult Axsnabk48/02//09/2013COVID-19 Vaccine (1 - season) 2025Influenza Vaccine (#1)2025HIB VaccinesAged OutNo longer eligible based on patient's age to complete this topicHPV VaccinesAged OutNo longer eligible based on patient's age to complete this topicIPV VaccinesAged OutNo longer eligible based on patient's age to complete this topicMeningococcal B VaccineAged OutNo longer eligible based on patient's age to complete this topic Meningococcal VaccineAged OutNo longer eligible based on patient's age to complete this topicRotavirus VaccinesAged OutNo longer eligible based on patient's age to complete this topic Insurance Advance Directives TypeDate RecordedPatient RepresentativeExplanationAdvance Directives and Living Will10/23/2024 12:08 PMAdvance Directives and Living Will10/23/2024 12:08 PM Care Teams Team MemberRelationshipSpecialtyStart DateEnd Date Jovani Birmingham DO [address] [place] [address] PCP - General08/16/22
--- OUTSIDE RECORDS SUMMARY | 2025-06-17 08:07 | XMS_ITS | CCD ---
Author Organization [facility] CliniSyny Care Team Providers Care Knife Blade Polisher Name Role Phone MEME CRAMER Admitting Unavailable MEME CRAMER Attending Unavailable JOVANI BIRMINGHAM Primary Care Unavailable SELF, REFERRED Referring Unavailable Jovani Birmingham Unavailable JOVANI BIRMINGHAM Primary Care Physician [phone] VINNIE, DR SHIRLEY Admitting Unavailable BALL, DR [...] Srivastava Attending Unavailable ELTAHAWY, KENNA Attending Unavailable DINAH BLEVINS Referring Unavailable Jovani Birmingham DO Primary Care Provider Jovani Birmingham DO Attending Provider Allergies Allergy ClassificationReported Allergen(s)Allergy TypeDate of OnsetReaction(s) Facility (1 source)No Known Medication Allergies; Translations: [No Known Medication Allergies]Propensity to adverse reactions (disorder)[facility] Repository (2 sources)patient allergy list reviewed by nurse or physiciaPropensity to adverse ozwdchpfq09-93-5887Xeqklzs:ClicData Other Medications Current Medications MedicationDrug Class(es)DatesSig (Normalized)Sig (Original)aspirin 81 mg delayed release oral tablet (15 sources)Platelet Aggregation Inhibitor, Nonsteroidal Anti-inflammatory Drug Start: 86-11-1499aqpk 1 tablet by mouth once dailyAspirin 81 mg tablet,delayed release (DR/EC) Active 81 MG PO Daily November 10, 2023 12:00am Complieswith drug therapyStart: 08-83-9944rjma 1 tablet by mouth once dailyaspirin 81 mg Oral EC Tab 81 mg = 1 tab(s), Oral, Daily, Oral, Refills(s) 0 Start Date: 11/28/22 Stat us: Orderedtake 1 tablet by mouth once dailyAspirin 81 81 MG 1 tablet Orally Once a day Activeatorvastatin 80 mg oral tablet (15 sources)HMG-CoA Reductase InhibitorStart: 51-20-8946nsny 1 tablet by mouth once dailyAtorvastatin 80 mg tablet Active 80 MG PO Daily November 10, 2023 12:00am Complies with drug therapyStart: 33-92-7168mspb 1 tablet by mouth once dailyatorvastatin 80 mg Tab 80 mg = 1 tab(s), Oral, Daily, Oral, Refills(s) 0 Start Date: 11/28/22 Status: Orderedazithromycin 250 mg oral tablet (5 sources)Macrolide AntimicrobialStart: 05-34-5581Gnfdxspuwrdv 250 MG as directed Orally daily for 5 days December, Activebenazepril hydrochloride 40 mg oral tablet (15 sources)Angiotensin Converting Enzyme InhibitorStart: 93-65-4782yaki 1 tablet by mouth once dailyBenazepril 40 mg tablet Active 40 MG PO Daily November 10, 2023 12:00am Complies with drug therapyStart: 56-38-2870ldxc 1 tablet by mouth once dailybenazepril 40 mg oral tablet 40 mg = 1 tab(s), Oral, Daily, Oral, Refills(s) 0 Start Date: 11/28/22 Status: Orderedclopidogrel 75 mg oral tablet (15 sources)P2Y12 Platelet InhibitorStart: 89-91-8678swnx 1 tablet by mouth once dailyClopidogrel 75 mg tablet Active 75 MG PO Daily November 10, 2023 12:00am Complies with drug therapyStart: 43-36-5928txbv 1 tablet by mouth once daily clopidogrel 75 mg Tab 75 mg = 1 tab(s), Oral, Daily, Oral, Refills(s) 0 Start Date: 11/28/22 Status:Orderedmetoprolol tartrate 25 mg oral tablet (15 sources)beta-Adrenergic BlockerStart: 18-85-3571zunl 1 tablet by mouth twice dailyMetoprolol Tartrate 25 mg tablet Active 25 MG PO Twice daily November 10, 2023 12:00am Complies with drug therapyStart: 78-19-8606lhce 1 tablet by mouth twice dailyMetoprolol tartrate 25 mg Tab 25 mg = 1 tab(s), Oral, BID, Oral, Refills(s) 0 Start Date: 11/28/22 Status: Ordered Completed/Discontinued Medications MedicationDrug Class(es)DatesSig (Normalized)Sig (Original)amoxicillin 875 mg / clavulanate 125 mg oral tablet (5 sources)Penicillin-class AntibacterialStart: 74-88-5571rvkq 1 tablet by mouth every twelve hoursAmoxicillin-Pot Clavulanate 875-125 MG 1 tablet Orally every 12 hrs for 14 days December, Not-Taking Problems Active Problems Problem ClassificationProblemDateDocumented DateEpisodic/ChronicAbdominal pain (15 sources)Right lower quadrant pain; Translations: [Right lower quadrant pain] EpisodicAortic; peripheral; and visceral artery aneurysms (13 sources)Aneurysm of ascending aorta; Translations: [Thoracic aortic aneurysm without rupture]Onset: 901270-06-8695FrddeklYaclhjh on above:CTA - 5cm ascending aneurysm - 09/2023,CTA - 4.9cm ascending aneurysm - T: 4.8cm ascending aneurysm - oronary atherosclerosis and other heart disease (20 sources)Coronary arteriosclerosis; Translations: [Atherosclerotic heart disease of quechan coronary artery without angina pectoris]Onset: 03-06-2016 ChronicComment on above:CABG: SVG-PDA - 06/2015Echo: LVEF 65%, normal RV size/function - 09/2023,Echo: LVEF 55%, normal RV size/function - 11/2024Disorders of lipid metabolism (20 sources)Hypercholesterolemia; Translations: [Pure hypercholesterolemia, unspecified]Onset: 32-28-4374QresbrwXdahddwdb hypertension (20 sources)Essential hypertension; Translations: [Essential (primary) hypertension]ChronicGenitourinary symptoms and ill-defined conditions (15 sources)Delay when starting to pass urine; Translations: [Hesitancy of micturition]EpisodicHeart valve disorders (20 sources)History of aortic valve replacement; Translations: [Presence of prosthetic heart valve]Onset: 19-61-4860VyytloaBecigyn on above:06/2015 Other congenital anomalies (2 sources)Congenital spondylolysis of lumbosacral region; Translations: [Congenital spondylolysis, lumbosacral region]Onset: 62-32-7161KehefdfWbegz lower respiratory disease (16 sources)Multiple nodules of lung; Translations: [Other nonspecific abnormal finding of lung field]44-15-6607IinnvtjjKcavwpf on above:CT: 5mm LLL - 2017,CT: 5mm LLL - 09/2023,CT: 8.6mm RUL, 5.8mm RUL, LLL - 03/2024,CT: 5mm LLL - 06/2024 (repeat in year),Other lower respiratory disease (12 sources)Other nonspecific abnormal finding of lung field; Translations: [Other nonspecific abnormal findingof lung field]Onset: 36-22-2936Ugzlnrpl Comment on above:CT: 8.6 mm RUL GGO - 03/2024Other lower respiratory disease (2 sources)Lung field abnormal; Translations: [Other nonspecific abnormal finding of lung field]EpisodicOther nervous system disorders (2 sources)Paresthesia; Translations: [Paresthesia of skin]EpisodicOther nutritional; endocrine; and metabolic disorders (3 sources)Body mass index 30+ - obesity; Translations: [Body mass index 30.0- 30.9, adult]Onset: 987333-65-3602WfznncaKgjtn nutritional; endocrine; and metabolic disorders (2 sources)Simple obesity ; Translations: [Other obesity due to excess calories] Onset: 48-30-3869HzgcimwYawer nutritional; endocrine; and metabolic disorders (7 sources)Obesity; Translations: [Obesity, unspecified] Resolved: 374756-58-4147JkwiwyzIpibq nutritional; endocrine; and metabolic disorders (2 sources)Obesity, unspecified; Translations: [Obesity, unspecified]11-14-2023 ChronicOther screening for suspected conditions (not mental disorders or infectious disease) (7 sources)Encounter for screening for malignant neoplasm of colon; Translations: [Screening for malignant neoplasm of colon done]Onset: 11-19-2022 EpisodicOther upper respiratory infections (2 sources)Acute maxillary sinusitis, unspecifiedEpisodicResidual codes; unclassified (2 sources)Obstructive sleep apnea syndrome; Translations: [Obstructive sleep apnea (adult) (pediatric)]89-08-0324VgykkjmOntfblnnaud; intervertebral disc disorders; other back problems (17 sources)Lumbar spondylosis; Translations: [Spondylosis without myelopathy or radiculopathy, lumbar region]18-42-1844MsxrudeKwdejmjnf-related disorders (20 sources)Nicotine dependence; Translations: [Nicotine dependence, cigarettes, uncomplicated]Onset: 34-32-4727FdkjpqdYoxusolonbdy (1 source)Patient encounter hwualr69-72-0823Hgwgwaficebl (1 source)THORAC AORTC ANEURYSM W/O RUPTR UNS; Translations: [THORAC AORTC ANEURYSM W/O RUPTR UNS]Onset: 88-45-9620Tdhthmbqtpmy (1 source)ANEURYSM ASCEND AORTA W/O RUPTURE; Translations: [ANEURYSM ASCEND AORTA W/O RUPTURE]Onset: 01-51-8136Lwihpqvdcnom (3 sources)Thoracic aortic aneurysm, without rupture, unspecified; Translations: [Thoracic aortic aneurysm, without rupture, unspecified]Onset: 09-18-2022 Unclassified (3 sources)Aneurysm of the ascending aorta, without rupture; Translations: [Aneurysm of the ascending aorta, without rupture] Past or Other Problems Problem ClassificationProblemDateDocumented DateEpisodic/ChronicResidual codes; unclassified (2 sources)Tobacco user; Translations: [Nondependent tobacco use disorder]Onset: 95-71-9075GiekukcoXqtlclhpyyl; intervertebral disc disorders; other back problems (2 sources)Low back pain; Translations: [Low back pain, unspecified]Onset: 10-38-7774VgmkdcgcCxvbcfokszey (7 sources)Aneurysm of ascending aorta without rupture; Translations: [Aneurysm of ascending aorta without rupture]Unclassified (5 sources)Aneurysm of ascending aorta without rupture I71.21Unclassified (1 source)Suspected COVID-19 virus infection Z20.822Unclassified (1 source)Thoracic aortic aneurysm, without rupture, unspecified; Translations: [Thoracic aortic aneurysm, without rupture, unspecified]Onset: 10-23-2024 Results Test NameValueInterpretationReference ZltpiJmcgbqyp85mg 53-51-322131Sgata to reach patient to schedule no answer lmom to cb to schedule.[facility]36on 29-77-6713985vg attempt to reach patient to schedule fu no answer lmom.[facility]36on 37-24-900074Nctl placed to patient to schedule fu appt with Dr Schuler no answer lmom to cb to schedule.[facility] DaytonTelephoneon 10-28-2024 [id number] Nori De La Rosa 1960 M Date Provider Department Center 10/28/2024 CARLOS POSADA [facility] [place] [facility] Family History Problem Relation Age of Onset Coronary artery disease Father Other Father Family Status - Relation Status Age at Father Reason for Visit and Comments: Appointment [375][facility] DaytonOffice Visiton 41-62-2162Dbzivx-up [id number] Nori De La Rosa 1960 M Date Provider Department Center 10/23/2024 Irwin-KENNA HARRISON JEFFREY [facility] Family History Problem Relation Age of Onset Coronary artery disease Father Other Father Family Status - Relation Status Age at Father Level of Service:59764 DC OFFICE/OUTPATIENT ESTABLISHED MOD MDM 30 [facility] HospitalOr[facility] Onlyon 93-98-3010Cxsqnn [id number] Nori De La Rosa 1960 M Date Provider Department Center 10/23/2024 ONDINA MAYO JEFFREY [facility] Family History Problem Relation Age of Onset Coronary artery disease Father Other Father Family Status - Relation Status Age at FatherNormalUniAultman Orrville Hospital36on 19-14-269555JCL to schedule 6 month follow up appointment with Dr. SullivanOhioHealth Doctors HospitalEstimated glomerular filtration rate (GFR) non- Americanon 37-17-0538RJE/1.73 sq M.predicted among non-blacks MDRD (S/P/Bld) [Vol rate/Area]mL/min/{1.73_m2}>=60[facility] - Chemistry and Chemistry - challengeon 77-87-5090Exwptapccx [Mass/Vol]1.01 mg/dL 0.70-1.30[facility] HospitalGFR/1.73 sq M.predicted MDRD (S/P/Bld) [Vol rate/Area]mL/min/{1.73_m2}>=60[facility] HospitalEstimated glomerular filtration rate (GFR) non- Americanon 91-67-6210VJF/1.73 sq M.predicted among non-blacks MDRD (S/P/Bld) [Vol rate/Area]mL/min/{1.73_m2}>=60 [facility] - Chemistry and Chemistry - challengeon 52-04-2624Fyexfnseuu [Mass/Vol]1.07 mg/dL0.70-1.30[facility] HospitalGFR/1.73 sq M.predicted MDRD (S/P/Bld) [Vol rate/Area] mL/min/{1.73_m2}>=60[facility] HospitalPathology Noteon 01-04-2023 Pathology [id number]#1.00CD:[address] [place], [place] [address]Outside Colonoscopyon 09-02-9662Pzruzbc Colonoscopy [id number]#1.00CD:[address] [place], [place] [address]Pre-Certification Formon 21-01-2819Ctb-Certification Form [id number]#1.00CD:[address] [place], [place] [address]Consent for Procedure/Surgeryon 96-40-1136Kykwfjr for Procedure/Surgery [id number]#1.00CD:[address] [place], [place] [address]Facesheeton 31-15-3532Rewppireu [id number]#1.00CD:[address] [place], [place] [address]Physician Referralon 76-98-4452Lgmhyzngt Referral [id number]#1.00CD:127NoCh[facility]ic[facility] CenterPhysician [id number]#1.00CD:127 [facility] HospitalAmbulatory Visit Summaryon 07-29-1446Sngdtkerjl Visit Summary NORI DE LA ROSA :1960 Visit Date:12/05/2022 Ambulatory Visit Instructions Your Diagnosis Screening for malignant neoplasm of colon Your Care Team Attending Physician - IVON CONTRERAS, Jayla Srivastava Primary Care Physician - VINNIE WEINSTEIN, JOVANI This Is Your Medications List Contact prescribing [...] Tablets By Mouth Every day Oral Contact prescribingphysician if questions or concerns Unchanged atorvastatin (atorvastatin 80 mg Tab) 1 Tablets By Mouth Every day Oral Contact prescribing physician if questions or concerns Unchanged benazepril (benazepril 40 mg oral tablet) 1 Tablets By Mouth Every day Oral Contact prescribing physician if questions or concerns Unchanged clopidogrel (clopidogrel 75 mg Tab) 1 Tablets By Mouth Every day Oral Contact prescribingphysician if questions or concerns Unchanged metoprolol (Metoprolol [...] of colon Thoracic aortic aneurysm without rupture NormalCherrington HospitalPhysician Referralon 11-15-2022 Physician [id number]#1.00CD:127Normal [facility] CenterCBC AUTO DIFFon 81-17-1091NNUN #0.0 103/ulNormal 0.0-0.1The [facility]uff[facility] HospitalComment on above:Performed By: #### CBC #### [facility] [address] [place] [address] Dr. Charity ConnorsBasophils/100 WBC (Bld)0.4 %Normal0.2-2.0The [facility] Comment on above:Performed By: #### CBC #### [facility] [address] [place] [address] Dr. Charity Marley #0.1 103/ulNormal0.0-0.7The [facility] HospitalComment on above: Performed By: #### CBC #### [facility] [address] [address] [address] Charity Carlsonosinophils/100 WBC (Bld)1.2 %Normal0.9-7.0The [facility] Comment on above:Performed By: #### CBC #### [facility] [address] [place] [address] Dr. Charity Carlsonrythrocyte distribution width (RBC) [Ratio]12.8 %Ujhykv50.0-15.0 The [facility] HospitalComment on above:Performed By: #### CBC #### [facility] [address] [place] [address] Dr. Charity ConnorsHematocrit (Bld) [Volume fraction]42.2 %Dghsdt27.0-54.0The [facility] HospitalComment on above:Performed By: #### CBC #### [facility] [address] [place] [address] Dr. Charity ConnorsHemoglobin (Bld) [Mass/Vol]14.4 g/nSEsytrl81.0-18.0The [facility] HospitalComment on above:Performed By: #### CBC #### [facility] [address] [place] [address] Dr. Charity Estrada #0.02 10e3/ulNormal0.00-0.03The [facility] HospitalComment on above:Performed By: #### CBC #### [facility] [address] [place] [address] Dr. Charity Estrada %0.3 %Normal0.0-0.5The [facility] HospitalComment on above: Performed By: #### CBC #### [facility] [address] [place] [address] Dr. Charity Snyder #2.2 103/ulNormal1.2-3.8The [facility] HospitalComment on above:Performed By: #### CBC #### [facility] [address] [place] [address] Dr. Charity Rizvihocytes/100 WBC (Bld)30.3 %Lprdlo29.5-60.0The [facility] HospitalComment on above:Performed By: #### CBC #### [facility] [address] [place] [address] Dr. Charity Dejesus DIFF REQNONormalThe [facility] HospitalComment on above: Performed By: #### CBC #### [facility] [address] [place] [address] Dr. Charity Rey (RBC) [Entitic mass]31.0 ucXkamcy54.9-34.0The [facility] HospitalComment on above:Performed By: #### CBC #### [facility] [address] [place] [address] Dr. Charity Rey (RBC) [Mass/Vol]34.1 g/wFYcrykz56.9-35.2The [facility] HospitalComment on above:Performed By: #### CBC #### [facility] [address] [place] [address] Dr. Charity Rey (RBC) [Entitic vol]90.9 eRMaxhiq57.0-94.0The [facility] HospitalComment on above:Performed By: #### CBC #### [facility] [address] [place] [address] Dr. Charity Theodore #0.7 103/ulNormal0.3-0.8The [facility] HospitalComment on above:Performed By: #### CBC #### [facility] [address] [place] [address] Dr. Charity Marieocytes/100 WBC (Bld)9.1 %Normal1.7-12.0The [facility] Comment on above:Performed By: #### CBC #### [facility] [address] [place] [address] Dr. Charity Saravia #4.3 103/ulNormal1.4-6.5The [facility] HospitalComment on above:Performed By: #### CBC #### [facility] [address] [place] [address] Dr. Charity Padillautrophils/100 WBC (Bld)58.7 %Abbbex80.0-75.0The [facility] HospitalComment on above:Performed By: #### CBC #### [facility] [address] [place] [address] Dr. Charity High mean volume (Bld) [Entitic vol]9.3 fLCritically low 9.5-13.5The [facility] HospitalComment on above:Performed By: #### CBC #### [facility] [address] [place] [address] Dr. Charity AgostoT450 103/bwVpmryw244-884Wkj [facility] HospitalComment on above: Performed By: #### CBC #### [facility] [address] [place] [address] Dr. Charity ConnorsRBC4.64 106/ulCritically low4.70-6.10The [facility] HospitalComment on above:Performed By: #### CBC #### [facility] [address] [place] [address] Dr. Charity ConnorsWBC7.3 103/ulNormal4.0-11.0The [facility] HospitalComment on above: Performed By: #### CBC #### [facility] [address] [address] [address] Charity ConnorsComplete Blood Count and Diffon 86-90-2529Udugrjkavxmf Ql (Bld) [facility] [employer] Other Basophilic stippling LM Ql (Bld)CSL [employer] Other RBC morphology finding Nom (Bld)[facility]L [employer] Other Complete Blood Count and DiffNomySkin Other Comprehensive Metabolic Panelon 39-97-3779Sasdbze [Mass/Vol]3.817440 g/dL3.4-5.0 g/dLChronogolf [employer] Other Calcium [Mass/Vol]9.6009569 mg/dL8.5-10.1 mg/dLChronogolf [employer] Other CO2 [Moles/Vol]29.35069638 mmol/L21.0-32.0 mmol/LNcox monett [employer] Other Creatinine [Mass/Vol]0.37627830 mg/dL0.70-1.30 mg/dL [facility] [employer] Other Potassium [Moles/Vol]4.70402955 mmol/L3.5-5.1 mmol/L [facility] [employer] Other Protein [Mass/Vol]8.120670 g/dLCritically high6.4-8.2 g/dLmySkin Other Urea nitrogen [Mass/Vol]12.0648311 mg/dL7.0-18.0 mg/dL [facility] [employer] Other Comprehensive Metabolic Panelsee noteNoperry county memorial hospital [employer] Other Comprehensive Metabolic Fgoca349 mmol/O816-941 mmol/L [employer] [employer] Other Comprehensive Metabolic Wufiy645 mg/dLCritically high 74-106 mg/dLLocust Hill [employer] Other Comprehensive Metabolic Panel>60 mL/min/1.73m2>=60 mL/min/1.36r4Pzcow [employer] Other Comprehensive Metabolic Panel0.4 mg/dL0.2-1.0 mg/dL [facility] [employer] Other Comprehensive Metabolic Panel4.9 g/dLLocust Hill [employer] Other Albumin/Globulin [Mass ratio]0.7 {ratio}NormalLocust Hill [employer] Other Comment on above:Performed By: #### CMP, LIPID #### [facility] [address] [place] [address] Dr. Charity Salamanca [Catalytic activity/Vol]95 U/SZddswe07-575Uvgrh [employer] Other Comment on above:Performed By: #### CMP, LIPID #### [facility] [address] [address] [address] Charity Rizvi [Catalytic activity/Vol]62 U/DLtacex53-01Uaerq [employer] Other Comment on above:Performed By: #### CMP, LIPID #### [facility] [address] [address] [address] Charity Campos gap [Moles/Vol]11.6 mmol/LNormalLocust Hill [employer] Other Comment on above:Performed By: #### CMP, LIPID #### [facility] [address] [address] [address] Charity Sampson [Catalytic activity/Vol]22 U/WAaeveu46-10Ywvro [employer] Other Comment on above:Performed By: #### CMP, LIPID #### [facility] [address] [place] [address] Dr. Yilan ChangChloride [Moles/Vol]102 mmol/TDvxrwa07-323[place] [employer] Other Comment on above:Performed By: #### CMP, LIPID #### [facility] [address] [place] [address] Dr. Charity ConnorsUrea nitrogen/Creatinine [Mass ratio]13.8 mg/mgNormalLocust Hill [employer] Other Comment on above:Performed By: #### CMP, LIPID #### [facility] [address] [place] [address] Dr. Charity ConnorsLIPID PROFILEon 15-67-1828UYWU-HDL RATIO German HospitalComment on above:Result Comment: 3.3 - 4.4 LOW RISK 4.4 - 7.1 AVERAGE RISK 7.1 - 11.0 MODERATE RISK >11.0 HIGH RISKPerformed By: #### CMP, LIPID #### [facility] [address] [place] [address] Dr. Charity ConnorsCholesterol in LDL [Mass/Vol]38.0 mg/dLKettering Health DaytonComment on above:Performed By: #### CMP, LIPID #### [facility] [address] [place] [address] Dr. Charity PalacioL NORMAL> or = 60 mg/dl - LOW CARDIOVASCULAR RISK <40 mg/dl - HIGH CARDIOVASCULAR RISKKettering Health DaytonComment on above:Performed By: #### CMP, LIPID #### [facility] [address] [place] [address] Dr. Charity ConnorsLDL CALC NORMALSEE [facility] Hospital, AvonComment on above:Result Comment: <100 mg/dl OPTIMAL 100 - 129 mg/dl NEAR OR ABOVE OPTIMAL 130 - 159 mg/dl BORDERLINE HIGH 160 - 189 mg/dl HIGH >190 mg/dl VERY HIGH Performed By: #### CMP, LIPID #### [facility] [address] [place] [address] Dr. Charity ConnorsVLDL CALC40.0 mg/dLNormalThe Simba HospitalComment on above: Performed By: #### CMP, LIPID #### [facility] [address] [place] [address] Dr. Charity Menendezid Panelon 71-26-3700Cslpz Panel> or = 60 mg/dl - LOW CARDIOVASCULAR RISK <40 mg/dl - HIGH CARDIOVASCULAR RISKLocust Hill [employer] Other Lipid PanelSEE BELOWLocust Hill [employer] Other Lipid Panel38.0 mg/dLLocust Hill [employer] Other Lipid Panel40.0 mg/dLLocust Hill [employer] Other Cholesterol [Mass/Vol]107 mg/dLNormal<=200[employer] Other Comment on above:Performed By: #### CMP, LIPID #### [facility] [address] [place] [address] Dr. Charity ConnorsCholesterol in HDL [Mass/Vol]29 mg/dLCritically kuj25-04Sdbdg [employer] Other Comment on above:Performed By: #### CMP, LIPID #### [facility] Laboratory [address] [place] [address] Dr. Charity Linaresesterol.total/Cholesterol in HDL [Mass ratio]3.7 {ratio} NormalLocust Hill [facility] Other Comment on above:Performed By: #### CMP, LIPID #### [facility] [address] [place] [address] Dr. Charity ConnorsTriglyceride [Mass/Vol]200 mg/dLCritically high<=150[place] [employer] Other Comment on above:Performed By: #### CMP, LIPID #### [facility] Laboratory [address] [place] [address] Dr. Charity ConnorsPROF 14(COMP METB)on 62-92-8731Ymxdadu [Mass/Vol]3.6 g/dLNormal 3.4-5.0The [facility] HospitalComment on above:Performed By: #### CMP, LIPID #### [facility] Laboratory [address] [address] [address] Charity ConnorsBilirubin [Mass/Vol]0.4 mg/dLNormal0.2-1.0The [facility] Comment on above:Performed By: #### CMP, LIPID #### [facility] [address] [address] [address] Charity ConnorsCalcium [Mass/Vol]9.8 mg/dLNormal8.5-10.1The [facility] Comment on above:Performed By: #### CMP, LIPID #### [facility] Laboratory [address] [place] [address] Dr. Charity ConnorsCO2 [Moles/Vol]29.2 mmol/UEemama63.0-32.0The [facility] Comment on above:Performed By: #### CMP, LIPID #### [facility] Laboratory [address] [place] [address] Dr. Charity ConnorsCreatinine [Mass/Vol]0.87 mg/dLNormal0.70-1.30The [facility] HospitalComment on above:Performed By: #### CMP, LIPID #### [facility] Laboratory [address] [place] [address] Dr. Charity CarlsonGFR-AF LIBERIAN>60Normal>=60The [facility] HospitalComment on above:Performed By: #### CMP, LIPID #### [facility] Laboratory [address] [place] [address] Dr. Charity Palafox-NON AF LIBERIAN>60Normal>=60The [facility] HospitalComment on above:Performed By: #### CMP, LIPID #### [facility] Laboratory [address] [place] [address] Dr. Charity ConnorsGlobulin (S) [Mass/Vol]4.9 g/dLNormalThe [facility] HospitalComment on above:Performed By: #### CMP, LIPID #### [facility] Laboratory [address] [place] [address] Dr. Charity ConnorsGlucose [Mass/Vol]110 mg/dLCritically fstt97-344Row [facility] HospitalComment on above:Performed By: #### CMP, LIPID #### [facility] Laboratory [address] [place] [address] Dr. Charity ConnorsPotassium [Moles/Vol]4.8 mmol/LNormal3.5-5.1The [facility] Comment on above:Performed By: #### CMP, LIPID #### [facility] [address] [place] [address] Dr. Charity ConnorsProtein [Mass/Vol]8.5 g/dLCritically high6.4-8.2The [facility] HospitalComment on above:Performed By: #### CMP, LIPID #### [facility] Laboratory [address] [place] [address] Dr. Charity Fonsecadium [Moles/Vol]138 mmol/AYnwvjg729-383Sxx [facility] Comment on above:Performed By: #### CMP, LIPID #### [facility] Laboratory [address] [place] [address] Dr. Charity ConnorsUrea nitrogen [Mass/Vol]12.0 mg/dLNormal7.0-18.0The [facility] HospitalComment on above:Performed By: #### CMP, LIPID #### [facility] Laboratory [address] [place] [address] Dr. Charity CampbellINElucio 02-38-0909Kfaujxcawz [Mass/Vol]0.96 mg/dLNormal 0.70-1.30The [facility] HospitalComment on above:Performed By: #### CREA #### [facility] Laboratory [address] [place] [address] Dr. Charity CarlsonGFR-AF LIBERIAN>60Normal>=60The [facility] HospitalComment on above:Performed By: #### CREA #### [facility] [address] [place] [address] Dr. Charity CarlsonGFR-NON AF LIBERIAN>60Normal>=60The [facility] HospitalComment on above:Performed By: #### CREA #### [facility] [address] [place] [address] Dr. Charity Tatum CHEST WO W CONon 71-74-9884GPF CHEST WO W CONEXAMINATION: CTA CHEST WO W CON HISTORY: Thoracic [...] Electronically authenticated by: AMNA BERNSTEIN Date: 2022-08-16 10:[address] [place], [place] [address]ECHOCARDIO M/2D COMPLETEon 07-29-5331DWTNHEDFAZ M/2D COMPLETE Patient: NORI DE LA ROSA Exam Date: 08/16/2022 : 1960 Gender:M Ordering : DR KENNA HARRISON M.D. Admission #: [id number] Family : DR JOVANI BIRMINGHAM D.O. Order #: [id number] CLICK HERE TO VIEW EXAM ECHOCARDIOGRAM REPORT [...] by: Kenna Harrison M.D. on 08/17/2022 at 13:12[facility] CHE[facility] WO CONon 41-31-9963DO CHEST WO CONEXAMINATION: CT CHEST WO CON HISTORY: Lung field abnormal , [...] Electronically authenticated by: JOSE PORTER Date: 2022-07-14 12:44NoUniversity Hospitals Geauga Medical CenterCT CHESTon 07-36-8232[facility]STFair[facility] Department of Radiology [address] [place] [id number] Patient Name: NORI DE LA ROSA : 1960 Sex: M Age: Race: White Pt. Location: Patient Status: O Ordered Date: 12/09/2019 11:30:00 AM Completed Date: 01/26/2020 09:08 AM Requesting Provider: MEME CRAMER Attending Provider: MEME CRAMER Report Copy To: JOVANI BIRMINGHAM Signs & Symptoms: I71.2 Thoracic aortic aneurysm, without rupture I10 History: Shi Patient [place] labs near his home per clinic. [address] no pc required per [employer] ref# [id number] 01/11 Comments: Exam: CTA CHEST CTA CHEST [...] lobe. Electronically signed: Kat Joiner. Transcribed by: [email or web address], User Resident: Electronically Signed by: KAT JOINER @ 01/26/2020 09:29 AMNormalSelect Medical Specialty [facility] Vital Signs Date TimeVital SignValuePerforming LagjnsvcrGynwqbli83-66-4757 09:30-0400Body jjajbs863.72 cmBenjamin Ball DO Work Phone: [facility]08-07-2025 09:30-0400 Body mass index (BMI) [Ratio]32.7 kg/s4Kukjdngj Ball DO Work Phone: [phone]08-07-2025 09:30-0400 Body exywbx65.69 kgBenjamin Ball DO Work Phone: [phone]08-07-2025 09:30-0400 Diastolic blood mm[Hg]Jovani Ball DO Work Phone: [phone]08-07-2025 09:30-0400 Heart rate65 /minBenjamin Ball DO Work Phone: [phone]08-07-2025 09:30-0400 Respiratory rate12 /minBenjamin Ball DO Work Phone: [facility]08-07-2025 09:30-0400 SaO2% (BldA) [Mass fraction]98 %Jovani Ball DO Work Phone: [facility]08-07-2025 09:30-0400 Systolic blood oeqqnqsc129 mm[Hg]Jovani Ball DO Work Phone: [facility]10-10-2024 09:09-0400 Body mass index (BMI) [Ratio]32.5 kg/t7MgunfbvtoLima Memorial Hospital 05-15-2024 09:09-0400Diastolic blood elaiftwr52 mm[Hg][facility]10-10-2024 09:09-0400Systolic blood sagrixyg556 mm[Hg][facility]10-10-2024 08:34-0400Body xvzdsy760.72 cmLima [facility] Hospital10-10-2024 08:34-0400Body oxbxer18.12 kgL[facility]10-10-2024 08:34-0400Heart rate62 /[facility] 05-15-2024 08:34-0400Respiratory rate12 /[facility] 03-14-2024 14:46-0400Body .72 cmL[facility] 03-14-2024 14:46-0400Body mass index (BMI) [Ratio]32.2 kg/c8IkoogxoyeLima Memorial Hospital08-09-2024 14:46-0400Body timkly99.16 kgL[facility]08-09-2024 14:46-0400Diastolic blood zfhvsinn46 mm[Hg][facility]08-09-2024 14:46-0400Heart rate77 /[facility]08-09-2024 14:46-0400Systolic blood sprfnvpy364 mm[Hg][facility]04-10-2024 08:40-0400Body zbmnca305.72 cmL[facility] Hospital04-10-2024 08:40-0400Body mass index (BMI) [Ratio]32.9 kg/m2 [facility]04-10-2024 08:40-0400Body rrbfuf08.2 kg [facility]04-10-2024 08:40-0400Diastolic blood mm[Hg][facility]04-10-2024 08:40-0400Heart rate66 /min [facility]04-10-2024 08:40-0400Respiratory rate12 /min [facility]04-10-2024 08:40-0400Systolic blood kckwoyof565 mm[Hg][facility]10-10-2023 08:30-0400Body opzmbr392.72 cmBenjamin Ball Other [facility] [employer] Other [id number] 08:30-0400Body mass index (BMI) [Ratio] 31.68 kg/y3Ojkkuksi Ball Other [employer] Other 10-10-2023 08:30-0400Body .53 kgBenjamin Ball Other [employer] Other 10-10-2023 08:30-0400Diastolic blood gyfjbnoh70 mm[Hg] Jovani Ball Other [employer] Other 10-10-2023 08:30-0400Respiratory rate12 /minBenjamin Ball Other [employer] Other 10-10-2023 08:30-0400Systolic blood onuxmlbw936 mm[Hg] Jovani Ball Other [employer] Other 05-10-2023 16:30-0400Body xqeopy095.72 cmBenjamin Ball Other [employer] Other 05-10-2023 16:30-0400Body mass index (BMI) [Ratio] 32.26 kg/x7Zstpulwa Ball Other [employer] Other 05-10-2023 16:30-0400Body .25 kgBenjamin Ball Other [employer] Other 05-10-2023 16:30-0400Diastolic blood jadgnatb75 mm[Hg] Jovani Ball Other [employer] Other 05-10-2023 16:30-0400Respiratory rate12 /minBenjamin Ball Other [employer] Other 05-10-2023 16:30-0400Systolic blood mm[Hg] Jovani Ball Other [employer] Other 05-02-2023 13:10-0400Blood Pressure LocationMichael NILL [facility] Tlukordc85-03-0589 13:10-0400Diastolic blood suqdsxfv75 mm[Hg]Jayla NILL General Surgery Ymnitnqj25-47-6110 13:10-0400Heart rate 76 /minMichael NILL General Surgery Dexdkpqv86-11-7030 13:10-0400 Respiratory rate16 /minMichael NILL General Surgery Pxsbkpwa30-37-3772 13:10-0400Systolic blood mpujynyv122 mm[Hg]Jayla NILL [facility] Surgery Asxkukpl94-31-6553 10:30-0400Body lekwrf506.72 cmBenjamin Ball Other [employer] Other 04-10-2023 10:30-0400Body mass index (BMI) [Ratio] 32.26 kg/s9Vddfmzlp Ball Other [employer] Other 04-10-2023 10:30-0400Body .25 kgBenjamin Ball Other [employer] Other 04-10-2023 10:30-0400Diastolic blood qemupgxv22 mm[Hg] Jovani Ball Other [employer] Other 04-10-2023 10:30-0400Respiratory rate12 /minBenjamin Ball Other [employer] Other 04-10-2023 10:30-0400Systolic blood rtzdorrx738 mm[Hg] Jovani Ball Other [employer] Other 03-28-2023 15:45-0400Body aocxhh106.72 cmBenjamin Ball Other [employer] Other 03-28-2023 15:45-0400Body mass index (BMI) [Ratio] 33.33 kg/o7Fkasjqgv Ball Other [employer] Other 03-28-2023 15:45-0400Body wdelfw57.43 kgBenjamin Ball Other [employer] Other 03-28-2023 15:45-0400Diastolic blood iiftkzvh59 mm[Hg] Jovani Ball Other [employer] Other 03-28-2023 15:45-0400Respiratory rate12 /minBenjamin Ball Other [employer] Other 03-28-2023 15:45-0400Systolic blood ciweskci157 mm[Hg] Jovani [place] Other [facility] [employer] Other Encounters Encounter DateEncounter TypeCare ProviderFacilityStart: 03-12-2025 End: 95-03-8433xwgtwzuzxvFkzsqmxg Ball DO Work Phone: [facility] Work Phone: Start: 03-12-2025 End: 85-91-5230Mtfnpda encounter procedureBenshandra Birmingham DO-[facility] Work Phone: Start: 10-23-2024 End: 29-15-1231vsexvkvorrTCNQOur Lady of Mercy Hospital - Andersontart: 05-15-2024 End: 35-53-3224acavuvvwhdXprtnwxynSumma [facility] Work Phone: Start: 05-15-2024 End: 07-35-5229Wcwdaad encounter procedureFirvcu medical center [facility] Work Phone: Start: 04-16-2024 End: 80-56-3141epemrdducdPPHSZSFirelands Regional Medical Centertart: 03-14-2024 End: 60-07-3019inmhjurkdsWnsaadjedSumma Health [facility] Work Phone: Start: 03-14-2024 End: 31-83-1163Cmyuhwd encounter procedureNovant Health Kernersville Medical Centerhanny [facility]ician [facility] Work Phone: Start: 64-00-3783Yyq-patient / Non-visitFirhanny Physician Group-[facility] Professional [employer] Work Phone: Start: 11-14-2023 End: 15-10-0351iwdxgsnjvmBnyhupvqbSumma Health [facility] Work Phone: Start: 11-14-2023 End: 20-32-9500Lufwdtbez for general adult medical examination without abnormal findingsFayette County Memorial Hospitaltart: 11-14-2023 End: 66-39-2087Cifawdy encounter procedureFirelands Physician Group-[facility] Work Phone: Start: 45-42-7996Vcf-patient / Non-visitFireland Physician [facility] Work Phone: Start: 48-01-1176Ght-patient / Non-visitFirelands Physician Group-[facility] [employer] Work Phone: Start: 05-15-2023 End: 37-00-7960aujslnrejmJbmmdkjs Ball Other [employer] Other Start: 09-34-2138Aycqdg outpatient visit 25 minutes Jovani ChepeG [facility] ClinicStart: 03-20-2023 End: 30-53-6445cyenlygiywNguerefn Ball Other [employer] Other Start: 08-78-0104Siwenmvnq encounterBenjamin ChepeG [facility] ClinicStart: 01-04-2023 End: 01-98-5523xhurotbmopXwhgtuny Ball Other [employer] Other Start: 52-81-7480Mtqwcdzbt encounterBenjamin ChepeG [facility] ClinicStart: 12-27-2022 End: 06-32-1692jgnvzljisvUFEYRBR NILLFacility:R0Bifpm: 12-13-2022 End: 06-11-2186uopwmyccieLtvllaoi Ball Other [employer] Other Start: 06-64-4956Bwiddx outpatient visit 15 minutes Jovani ChepeG [facility] ClinicStart: 12-05-2022 End: 25-36-0090lnybykgomvRhitmrt R NILLFacility:GS BellevueStart: 12-05-2022 End: 98-70-6203Jufxenx encounter procedureMichael R NILL General Surgery Nill/Said Simba Start: 12-04-2022 End: 82-10-3034fslzodavddEghioibv Ball Other [employer] Other Start: 54-06-8933Gcppep outpatient visit 15 minutes Jovani [facility] ClinicStart: 09-98-8550Kdrtrdlxj for general adult medical examination without abnormal findingsDR JOVANI Eduardo [facility] HospitalStart: 62-58-8745hundmfciqgJgtgozh R NILLFacility:[facility] BellevueStart: 11-13-2022 End: 69-65-6072Yxaptdbxl for general adult medical examination without abnormal findingsJovani [facility] Medical ClinicStart: 44-31-5247Abjtefyv preventive med est patient 40-64yrsBenshandra [place] Medical ClinicStart: 11-13-2022 End: 33-18-6243ozvdsftcusCS JOVANI VINNIELocust Hill [employer] Other Start: 10-31-2022 End: 97-00-9142sqocutkkdpTlubekcm Ball Other [employer] Other Start: 71-80-5268Eyktgh outpatient visit 15 minutes Jovani [facility] ClinicStart: 10-30-2022 End: 41-68-6719bjbmqzxbohTysbosnx Ball Other [employer] Other Start: 71-14-8701Ndmgbuimq encounterBearnaud [facility] ClinicStart: 99-65-9236Crdcitpka for other preprocedural examinationDR AB [facility] Southtart: 08-16-2022 End: 12-42-7080vwzcjhgmirIA AB [facility]ITALFacility:D2Slkxo: 08-16-2022 End: 03-09-7562Twsgohzgq for other preprocedural examinationDR AB [facility] Facility:H5Kibzm: 07-14-2022 End: 89-05-7638pwjfhnxnzjVD JOVANI BALLFacility:E0Ssfdk: 28-21-1772Zcewv health examinationJovani Birmingham Other [facility] [employer] Other Start: 01-26-2020 End: 47-43-1425Dggyrvf encounter procedureSAQIB MASROORFacility:[facility] Procedures DateProcedureProcedure DetailPerforming ClinicianStart: 11-13-2022 End: 32-60-0486HCY screeningJovani Birmingham Other Comment on above:Performed By: #### PSASC #### [facility] Laboratory [address] [place] [address] Dr. Charity ConnorsStart: 69-02-0345Naqjplhc artery bypass graftMichael NILL Start: 61-85-3547Lwfiter examination of patientJovani Birmingham Other Start: 36-75-5469Wgowyvcpkwx of aortic valveMichael NILL Catheterization of left heartMichael NILL Depression screeningJovani Birmingham Other Screening for malignant neoplasm of prostateJovani Birmingham Other Plan of Treatment DateCare ActivityDetailAuthorStart: 15-02-7152thqcsubmikZpblczjzoqPfpnolsf:[facility] BellevueComprehensive metabolic 1999 panel - Serum or PlasmaLima Memorial HospitalComprehensive metabolic 2000 panel - Serum or [facility] HospitalCT Chest WO contrastH[facility] Immunizations Immunization DateImmunizationNotesCare FrgesncgFczwukxu99-71-5592mkglvtiwj, high dose seasonal, preservative-freeL[facility] Hospital10-10-2023 influenza, injectable, quadrivalent, preservative freeJovani Birmingham Other [facility]10-13-2022influenza virus vaccine, unspecified formulationMichael NILL General Surgery Pbuhqsns15-86-7418UHMT-ArX-1 (COVID-19) mRNA BNT-162b2 vaxMichael NILL General Surgery Yapdlwew66-53-6571YNBOW-36 Vaccine Kesha - Documentation Purposes OnlyBenshandra Birmingham Other General Surgery Aikimszo08-03-1585nfciiio and diphtheria toxoids, adsorbed, preservative free, for adult use (5 Lf of tetanus toxoid and 2 Lf of diphtheria toxoid)Jovani Birmingham Other [facility] Payers DatePayer CategoryPayerPolicy [id number] Health [id number] 10-55-2855KnmnEastern New Mexico Medical [id number] 2..5.526009.6179-24-1959 [id number] 2..1.509335.3.57[id number] 2..1.570933.3.57[id number] 2..1.831415.3.57[id number] 2..1.057514.3.57[id number] 2..1.049345.3.57[id number] 2.0.1.693113.3.57[id number] 2..840.1.505376.3.57[id number] 2.16.840.1.253224.3.57[id number] 2..840.1.591235.3.579.2.727 Social History DateTypeDetailFacilitySex Assigned At [facility] Healthcaretart: 03-91-8417Sqtvmpz smoking statusHeavy tobacco smoker (finding)General Surgery [facility] HospitalueTobacco smoking statusNeverGeneral Surgery [facility] Hospitaltart: 03-38-2633Mgl Assigned At [facility] Centertart: 22-23-1448Gpqdyvq smoking status NHISSmokes tobacco daily (finding)[facility] HospitalexMale (finding)[facility] Functional Status IwwcTdafjbroawUjmtjkCttsmpqo96-13-1979Cihuhqkmuz StatusN/AGeneral Surgery [place] Clinical Notes 10-31-2022 to 10-23-2024 Note Date & QukpYwwoHzwbkhpv35-86-5526 [facility] Chief Complaint: Patient [...] atherosclerosis - S/P SVG (more content not included)...[facility]10-10-[facility] Evaluation note* Encounter Date Diagnosis Assessment Notes Treatment Notes Treatment Clinical Notes May, Primary hypertension (ICD-10 - I 10) This patient is instructed to consume a healthy, low-fat, low-salt diet. They are also encouraged to continue exercise to achieve/maintain a normal BMI. Patient is instructed on home BP measurements: - rest for 5 minutes w/o talking- positioned w/ feeton floor and arm supported- average best 2/3 readings w/ goal < 135/85 May,SHD (arteriosclerotic heart disease) (ICD-10 - I25.10)This patient is stable without activity related CP, dyspnea or lightheadedness. They are instructedto continue exercise and AHA diet plan. Continue secondary prevention measures. May,Elevated cholesterol (ICD-10 - E78.00)Instructed on diet and exercise with continued statin therapy.Discussed the beneficial effects of lo wering cholesterol in reducing the risk for cerebrovascular and cardiovascular disease. May,Nicotine dependence, cigarettes, uncomplicated (ICD-10 - F17.210) This patient has been encouraged to quit tobacco use immediately. They are aware of the hazards associated with tobacco use, including but not limited to respiratory infections, vascular disease and cancers. May,neurysm of the ascending aorta, without rupture (ICD-10 - I71.21) CTA: 4.7cm - 01/2021, CT: 4.7cm - 08/2021, CT: 4.8cm - 07/2022, CT: 3.4cm - 03/2023 Serial CTA by [facility] - tentatively scheduled for recheck after 6mo but scheduled wrong imaging procedure - control BP - continue ASA and Statin therapy He is to call [facility] to see if CTA abdomen should be scheduled (year anniversary is Jul) May,ulmonary nodules (ICD-10 - R91.8)CT: 0.5cm - enies dyspnea, change in sputum production or hemoptysis. Continue LDCT May,S/P aortic valve replacement (ICD-10 - Z95.2)Serial Echo and f/u with [facility] Cardiology Denies CP, tachycardia or syncope [facility] Other 08-15-2023 Evaluation note* Encounter Date Diagnosis Assessment Notes Treatment Notes Treatment Clinical Notes Mar, Aneurysm of the asce nding aorta, without rupture (ICD-10 - I71.21) CTA: 4.7cm - 01/2021, CT: 4.7cm - 08/2021, CT: 4.8cm - 07/2022, CT: 3.4cm - 03/2023Mar,Nicotine dependence, cigarettes, uncomplicated (ICD-10 - F17.210) This patient has been encouraged to quit tobacco use immediately. They are aware of the hazards associated w/ tobacco use, including but not limited to respiratory infections, vascular disease and cancers. Mar,ulmonary nodules (ICD-10 - R91.8)CT: 0.5cm - 03/2023 [facility] Other 08-15-2023 Evaluation note* Encounter Date Diagnosis Assessment Notes Treatment Notes Treatment Clinical Notes Mar, Pulmonary nodules (ICD-10 - R91. 8) Mar,neurysm of the ascending aorta, without rupture (ICD-10 - I71.21) CTA: 4.7cm - 01/2021, CT: 4.7cm - 08/2021, CT: 4.8cm - 07/2022 [facility] Other 05-10-2023 Evaluation note* Encounter Date Diagnosis Assessment Notes Treatment Notes Treatment Clinical Notes December, Acute non-recurrent maxillary si nusitis (ICD-10 - J01.00) Instructed to use Robitussin or Mucinex for cough, saline or Flonase NS for congestion, Tylenol forpain and fever. December,igarette nicotine dependence without complication (ICD-10 - F17.210)This patient has been encouraged to quit tobacco use immediately. They are aware of the hazards associated with tobacco use, including but not limited to respiratory infections, vascular disease and cancers. [facility] [employer] Other 05-02-2023 NoteChief Complaint consultation for screening [...] Recorded SARS-CoV-2 (COVID-19) Ad (more content not included)...[facility] HospitalComment on above:Result Comment: Electronically Signed By: IVON CONTRERAS, Jayla Olmstead\Date and Time Signed: 12/05/22 13:43 CYT37-08-4139 Evaluation note * Encounter Date Diagnosis Assessment Notes Treatment Notes Treatment Clinical Notes December, Acute non-recurrent maxillary si nusitis (ICD-10 - J01.00) Instructed to use Robitussin or Mucinex for cough, saline or Flonase NS for congestion, Tylenol forpain and fever. December,SHD (arteriosclerotic heart disease) (ICD-10 - I25.10)This patient is stable without activity related CP, dyspnea or lightheadedness. They are instructedto continue exercise and AHA diet plan. December,Suspected COVID-19 virus infection (ICD-10 - Z20.822)Recommend testing for [employer] [facility] Other 04-10-2023 Evaluation note* Encounter Date Diagnosis Assessment Notes Treatment Notes Treatment Clinical Notes Nov, ASHD (arteriosclerotic heart dis ease) (ICD-10 - I25.10) This patient is stable without activity related CP, dyspnea or lightheadedness. They are instructedto continue exercise and AHA diet plan. Nov,Wellness examination (ICD-10 - Z00.00)Healthy diet and exercise. Reviewed age-appropriate preventive testing recommended. Nov,rimary hypertension (ICD-10 - I10)This patient is instructed to consume a healthy, low-fat, low-salt diet. They are also encouraged to continue exercise to achieve/maintain a normal BMI. Nov,Nonrheumatic aortic (valve) stenosis (ICD-10 - I35.0)No CP, tachycardia or syncope. Continue yearly Echo Nov,neurysm of ascending aorta without rupture (ICD-10 - I71.21)Control BP Serial CTA surveillance Nov,Elevated cholesterol (ICD-10 - E78.00)Diet and exercise with continued statin therapy. Nov,igarette nicotine dependence without complication (ICD-10 - F17.210)This patient has been encouraged to quit tobacco use immediately. They are aware of the hazards associated with tobacco use, including but not limited to respiratory infections, vascular disease and cancers. Nov,S/P aortic valve replacement (ICD-10 - Z95.2)Serial Echocardiogram Nov,olon cancer screening (ICD-10 - Z12.11)Refer for screening colonoscopy in this asymptomatic, low risk patient [facility] Other 03-28-2023 Evaluation note* Encounter Date Diagnosis Assessment Notes Treatment Notes Treatment Clinical Notes Oct, Urinary hesitancy (ICD-10 - R39. 11) Push fluids Not consistent w/ infection due to lack of continued symptoms and fever. BLadder stone? US kidney/ureter/bladder vs CT Oct,Right lower quadrant abdominal pain (ICD-10 - R10.31)Nonspecific, tenderness is mild. MOnitor for now. ER for increased pain CT if no improvement. Oct,SHD (arteriosclerotic heart disease) (ICD-10 - I25.10)This patient is stable without activity related CP, dyspnea or lightheadedness. They are instructedto continue exercise and AHA diet plan. Oct,igarette nicotine dependence without complication (ICD-10 - F17.210)This patient has been encouraged to quit tobacco use immediately. They are aware of the hazards associated with tobacco use, including but not limited to respiratory infections, vascular disease and cancers. [facility] Other Evaluation + Plan note No data available for this section General Surgery [place] Evaluation noteNo InformationNort [employer] Other Evaluation note* Diagnosis Onset Date Resolution Status Aneurysm of ascending aorta without rupt ure acuteASHD (arteriosclerotic heart disease)acuteElevated cholesterolacute Nonrheumatic aortic (valve) stenosisacuteObesityacutePrimary hypertensionacute Pulmonary nodulesacuteScreening PSA (prostate specific antigen)noneactiveWelcome to Medicare preventive visitnoneactive [facility] Work Phone: Evaluation noteNo assessment information available [facility] Work Phone: Evaluation note* Diagnosis Onset Date Resolution Status Aneurysm of ascending aorta without rupt ure acuteNicotine addictionacutePulmonary nodulesacuteAneurysm of ascending aorta without ruptureacuteASHD (arteriosclerotic heart disease)acuteElevated cholesterolacuteNicotine addictionacuteNonrheumatic aortic (valve) stenosisacute ObesityacutePrimary hypertensionacutePulmonary nodulesacute [facility] Work Phone: Evaluation note* Diagnosis Onset Date Resolution Status Admit Date Aneurysm of ascending aorta without rupt ure acuteAugust 2024 9:24amASHD (arteriosclerotic heart disease)acuteAugust 2024 9:24amElevated cholesterolacuteAugust 2024 9:24amNicotine addictionacuteAugust 2024 9:24amNonrheumatic aortic (valve) stenosisacute March 12, 2025 9:24amObesityacuteAugust 2024 9:24amPrimary hypertension acuteAugust 2024 9:24amPulmonary nodulesacuteAugust 2024 9:24am Medicare annual wellness visit, initialnoneactiveAugust 2024 9:24am Screening PSA (prostate specific antigen)noneactiveAugust 2024 9:24am [facility] Work Phone: History general Narrative - Reported* Type Description Date Medical History ASHD (arteriosclerotic heart dis ease) Medical HistoryPrimary hypertensionMedical HistoryElevated cholesterolMedical HistoryS/P aortic valve replacementMedical HistoryCigarette nicotine dependence without complicationMedical HistoryAneurysm of ascending aorta without rupture Medical HistoryLumbar spondylosisMedical HistoryNonrheumatic aortic (valve) stenosisMedical HistoryPulmonary nodulesSurgical [id number] History AVR AND [id number] HistorySEE SURGICAL [facility] [employer] Other History general Narrative - Reported* Type Description Date Medical History ASHD (arteriosclerotic heart dis ease) Medical HistoryPrimary hypertensionMedical HistoryElevated cholesterolMedical HistoryS/P aortic valve replacementMedical HistoryCigarette nicotine dependence without complicationMedical HistoryAneurysm of ascending aorta without rupture Medical HistoryLumbar spondylosisMedical HistoryNonrheumatic aortic (valve) stenosisMedical HistoryPulmonary nodulesSurgical [id number] History AVR AND [id number] HistoryColonoscopy w/ polypectomy12/2022Hospitalization HistorySEE SURGICAL [facility] Other History general Narrative - Reported* Type Description Date Medical History ASHD (arteriosclerotic heart dis ease) Medical HistoryPrimary hypertensionMedical HistoryElevated cholesterolMedical HistoryS/P aortic valve replacementMedical HistoryCigarette nicotine dependence without complicationMedical HistoryAneurysm of ascending aorta without rupture Medical HistoryLumbar spondylosisMedical HistoryNonrheumatic aortic (valve) stenosisMedical HistoryPulmonary nodulesSurgical [id number] History AVR AND [id number] HistoryColonoscopy w/ polypectomy, repeat in 5 years 12/2022Hospitalization HistorySEE SURGICAL [facility] Other Hospital Discharge instructions No data available for this section General Surgery [place] Progress note No data available for this section General Surgery [place] Reason for referral (narrative)No reason for referral information availableKind[facility] Work Phone: Summary Purpose Family History No Family History Records FoundNo Family History Records FoundNo Family History Records FoundNo Family History Records Found Advance Directives Advance Directive Response Recorded Date/ Time Advance Directives No August 29, 2023 2:20pm Reason for Referral Reason *FU 11/20 Screenin g colonoscopy in an asymptomatic, low risk patient Diagnosis 1 Colon cancer screeni ng (Z12.11) Referral Organization [facility] yelena Referring Provider First Name Jovani Referring Provider Last Name Vinnie Referring Provider Specialty Internal Me dicine Referred Organization [facility] Referred Provider Jayla Ramirez Referred Address [address], [place],[address] Referred Provider Specialty Surgery Referral Priority Routine General Notes Annmarie Rahman 04:32:30 PM >received today, attachments made, notes locked, referral faxed Clinical Notes [id number] Chief Complaint and Reason for Visit Chief Complaint Amb Documentation WellnessReason for VisitAneurysm of ascending aorta without rupture ASHD (arteriosclerotic heart disease) Elevated cholesterol Nonrheumatic aortic (valve) stenosis Obesity Primary hypertension Pulmonary nodules Screening PSA (prostate specific antigen) Welcome to Medicare preventive visit Chief Complaint Discuss CT Chief Complaint Discuss CT 6 month follow upReason for VisitAneurysm of ascending aorta without rupture Nicotine addiction Pulmonary nodules Aneurysm of ascending aorta without rupture ASHD (arteriosclerotic heart disease) Elevated cholesterol Nicotine addiction Nonrheumatic aortic (valve) stenosis Obesity Primary hypertension Pulmonary nodules Chief Complaint Admit Date Wellness March 12, 2025 9:2 4am Reason for Visit Admit Date Aneurysm of ascending aorta without rupt ure March 12, 2025 9:24am ASHD (arteriosclerotic heart disease) Au margie 2024 9:24am Elevated cholesterol March 12, 2025 9: 24am Nicotine addiction March 12, 2025 9:2 4am Nonrheumatic aortic (valve) stenosis Aug ust 2024 9:24am Obesity March 12, 2025 9:2 4am Primary hypertension March 12, 2025 9: 24am Pulmonary nodules March 12, 2025 9:2 4am Medicare annual wellness visit, initial March 12, 2025 9:24am Screening PSA (prostate specific antigen ) March 12, 2025 9:24am Additional Source Comments (unrecognized sect ion and content) No Status Records FoundNo Status Records FoundNo Status Records FoundNo Status Records Found INFORMATION SOURCE (unrecogn ized section and content) DATE CREATED AUTHOR 02/20/2020 [facility] DATE CREATED AUTHOR AUTHOR'S ORGANIZ ATION 12/19/2022 [facility] DATE CREATED AUTHOR AUTHOR'S ORGANIZ ATION 01/13/2023 [facility] DATE CREATED AUTHOR AUTHOR'S ORGANIZ ATION 11/08/2024 [facility] REASON FOR VISIT (unrecogniz ed section and content) [facility] painWe llnessWellcommunity hospitalSinuses- [phone] infectionNo InformationNo InformationNo Information6 month Follow up Patient Care team informatio n (unrecognized section and content) Team Status: Active Member Role Status Dates Jovani Birmingham DO Primary Care Provider Active Team Status: Inactive Member Role Status Dates Jovani [place] DO Primary Care Provider Active Start: March 12, 2025 End: March 12gerardo Birmingham DOAttending ProviderActiveStart: March 12, 2025 End: March 12, 2025 Team Status: Active Member Role Status Dates Jovani Ball , DO Primary Care Provider Active Team [...] Birmingham , DO Primary Care Provider Active Start: March 13, 2024 [facility] Evgeny Reneettporsche ProviderActiveStart: March 13, 2024 Team Status: Inactive Member Role Status Dates Jovani Birmingham , DO Primary Care Provide r, Attending Provider Active Start: March 14, 2024 End: March 14, 2024 Team Status: Inactive Member Role Status Lilo Birmingham , DO Primary Care Provide r, Attending Provider Active Start: May 15, 2024 End: May 15, 2024 Team Status: Inactive Member Role Status Lilo Birmingham , DO Primary Care Provider Active Start: March 12, 2025 End: March 12enjamaribell Birmingham DOAttporsche ProviderActiveStart: March 12, 2025 End: March 12, 2025 Goals (unrecognized section and content) Goals may [...] BE BASED ON THE PRIMARY CLINICAL RECORDS. [facility] [employer] provides no warranty or guarantee of the accuracy or completeness of information in this document.
[2025-06-17 08:21] LABS: Estimated GFR (African America >60 (>=60 mL/min/1.73m^2); Estimated GFR (Non-African Ame >60 (>=60 mL/min/1.73m^2)
== END 2025-06-17 08:00 | disposition home or self-care (01) ==
LOC: LAB 07:59
PROVIDERS: Pathology Anatomic Pathology & Clinical Pathology; PCP Internal Medicine; Visit Provider Internal Medicine
DX: R91.8 Other nonspecific abnormal finding of lung field (principal); I71.21 Aneurysm of the ascending aorta, without rupture
CPT/HCPCS: 36415; 71275; 82565; Q9967